=== PATIENT | female | born 1970 | race American Indian/Alaskan Native ===

== ENCOUNTER 2017-02-10 06:20 | Emergency (ER) | payer OTHER ==
[~2017-02-10] VITALS: Ht 160 cm; Wt 68.0 kg
[~2017-02-10 06:20] MED LIST: ACYCLOVIR200 MG PO; BACTRIM DS TAB1 EACH PO; CEPHALEXIN250 MG/5 M PO; CEPHALEXIN500 MG PO; CLOBETASOL PROP59 M1 TOP; DILAUDID2 MG PO; DILAUDID4 MG PO; DIPHENHYDR12.5 MG/1 PO; GUAIFENESIN-CO118 ML PO; HUMIRA40 MG/0.1 INJ; HYDROCODON-ACE1 EA10 PO; HYDROCODON-ACE1 EAC8 PO; IBUPROFEN800 MG PO; JUNEL FE PO; JUNEL1 EAC1 PO; KEFLEX500 MG PO; KETOROLAC TROME10 MG PO; LEVAQUIN250 MG PO; LUPRON DEPOT7.5 MG IM; MELOXICAM15 MG PO; MS CONTIN15 MG PO; NORCO 10-325 T1 EACH PO; NORETHINDRONE0.35 MG PO; ONDANSETRON ODT4 MG PO; PERCOCET 5-3251 EACH PO; POTASSIUM CHLO10 MEQ PO; POTASSIUM CHLO20 ME1 PO; PREDNISONE1 MG PO; PREDNISONE20 MG PO; PRILOSEC20 MG PO; PRILOSEC40 MG PO; PROVENTIL HFA6.7 GM INH; STELARA45 MG/0.1 SQ; STELARA45 MG/0.1 SUB-Q; TORADOL10 MG PO; ZITHROMAX250 MG PO; ZOFRAN ODT4 MG SL
[2017-02-10] MEDS ORDERED: IBUPROFEN200 MG PO (06:31)
[2017-02-10] MEDS ORDERED: CEPHALEXIN500 MG PO (06:48)
[2017-02-10] MEDS ORDERED: NORCO 5-325 TA1 EACH PO (06:48)
== END 2017-02-10 06:56 | disposition home or self-care (01) ==
LOC: ED 06:20
DX: J02.9 Acute pharyngitis, unspecified (principal); G43.909 Migraine, unspecified, not intractable, without status migrainosus; Z98.890 Other specified postprocedural states; Z88.0 Allergy status to penicillin; Z88.1 Allergy status to other antibiotic agents; Z88.5 Allergy status to narcotic agent; Z88.8 Allergy status to other drugs, medicaments and biological substances; Z79.899 Other long term (current) drug therapy
CPT/HCPCS: 87081; 87880; 99283

== ENCOUNTER 2017-07-09 07:08 | Emergency (ER) | payer OTHER ==
[~2017-07-09] VITALS: Ht 160 cm; Wt 68.3 kg
--- OUTSIDE RECORDS SUMMARY | ~2017-07-09 | XMS | Clinical Summary ---
Demographics + + + | Address | [address] | | | [place] [address] | + + + | Home Phone | | + + + | Preferred Language | Unknown | + + + | Marital Status | | + + + | Restorationism Affiliation | PRO | + + + [...] + + + + + | INOCENTE DANILELE | ECON | [address] | | | R | | [place] | | | | | [address] | | + + + + + Care Team Providers + +------+ + | Care Specialist Field Engineer Name | Role | Phone | + +------+ + | Omari Shabazz | PP | | + +------+ + Source Comments JOSE is fully live on both EpicCare Ambulatory and EpicCare InPatient.[facility] Allergies + + + + [...] + + | 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
--- OUTSIDE RECORDS SUMMARY | ~2017-07-09 | XMS | Clinical Summary ---
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
[~2017-07-09 07:08] MED LIST changes: +IBUPROFEN200 MG PO; +NORCO 5-325 TA1 EACH PO
== END 2017-07-09 08:52 | disposition home or self-care (01) ==
LOC: ED 07:08
DX: M62.82 Rhabdomyolysis (principal); G43.909 Migraine, unspecified, not intractable, without status migrainosus; Z88.0 Allergy status to penicillin; Z88.1 Allergy status to other antibiotic agents; Z88.8 Allergy status to other drugs, medicaments and biological substances; Z88.5 Allergy status to narcotic agent; Z79.899 Other long term (current) drug therapy
CPT/HCPCS: 80048; 82550; 85025; 99283; J7030

== ENCOUNTER 2018-01-17 15:26 | Emergency (ER) | payer OTHER ==
[~2018-01-17] VITALS: Ht 160 cm; Wt 75.1 kg
--- OUTSIDE RECORDS SUMMARY | ~2018-01-17 | XMS | Encounter Summary ---
Demographics + + + | Address | [address] | | | [place] [address] | + + + | Home Phone | | + + + | Preferred Language | Unknown | + + + | Marital Status | | + + + | Restoration Affiliation | Unknown | + + + | Race | Unknown | + + + | Ethnic Group | Unknown | + + + Author + + + | Author | [facility] | + + + | Organization | [facility] | + + + | Address | Unknown | + + + | Phone | Unavailable | + + + Support + + +---------+ + | Name | Relationship | Address | Phone | + + +---------+ + | Contact,No | ECON | Unknown | | + + +---------+ + Care Team Providers + +------+ + | Care Distance Learning Unit Leader Name | Role | Phone | + [...] Dr [address], | | | | | [place] | [place] [address] | | | | | [address] | [phone] | | | | | [phone] | | | +--------+ + + + [...]
--- OUTSIDE RECORDS SUMMARY | ~2018-01-17 | XMS | Encounter Summary ---
Demographics + + + | Address | [address] [address] | | | [place] [address] | + + + | Home Phone | | + + + | Preferred Language | Unknown | + + + | Marital Status | | + + + | Orthodox Affiliation | Unknown | + + + | Race | Unknown | + + + | Ethnic Group | Unknown | + + + Author + + + | Author | [facility] | + + + | Organization | [facility] | + + + | Address | Unknown | + + + | Phone | Unavailable | + + + Support + + +---------+ + | Name | Relationship | Address | Phone | + + +---------+ + | Contact,No | ECON | Unknown | | + + +---------+ + Care Team Providers + +------+ + | Care Tick Inspector Name | Role | Phone | + [...] | valve | | | | | [address] | | | | | | [place] | | | | | | [address] | | | | | | (Fax) [...] Maris Chi Date of : 1970 | [facility] | | Performing Physician: Mariah Castano | [...] | maxP.76 mmHg TR Vmax: 2.22 m/s Water Meter Installer: HÉCTOR | | | Authenticated by: Mariah Martinezcrab orchard Report Date/Time: 11-19-2017 | | | 19:17:47 | | + + + + -----+ | Procedure Note | + -----+ | Jonathan, Rad Results In - 11/19/2017 7:18 PM PDT Patient Name: Ashley Chi of | | : 1970Accession: [id number] Physician: Mariah | | [place] INDICATIONS------ | [...] cmLVIDd: 4.38 cmLVPWd: 0.78 cmLVOT Area: 3.54 qz5LDKI Diam: | | 2.12 cm%FS: 30.20 %EF(Teich): [...] (A-L): 22.98 ml/m2LAAs | | A2C: 17.04 ai7KHBUM A-L A2C: 53.44 mlLALs A2C: 4.61 cmLAAs A4C: 9.94 pt8RTNAK | | A-L A4C: 21.18 mlLALs A4C: 3.96 cmRAAs: 13.03 sm2CLRFE A-L: 31.45 mlRAESV MOD: | | 30.49 mlRALs: 4.58 cmAo Diam: 3.13 cmLA Diam: 2.92 cmLA/Ao: 0.93 TAPSE: 3.25 | | cmAV maxP.89 mmHgAV meanP.27 mmHgAV Vmax: 1.72 m/Kiana Vmean: 1.15 m/Kiana | | VTI: 37.64 cmAVA Vmax: 1.95 cm2AVA (VTI): 2.04 sd9DKBJ Vmax: 0.00 cm2/m2AVAI | | (VTI): 0.00 cm2/m2LVOT maxP.63 mmHgLVOT meanP.10 mmHgLVSI Dopp: 48.75 | | ml/m2LVSV Dopp: 77.02 mlLVOT Vmax: 0.95 m/sLVOT Vmean: 0.69 m/sLVOT VTI: 21.73 | | cmMV A Yordy: 1.05 m/sMV DecT: 242.45 msMV E Yordy: 1.27 m/sMV E/A Ratio: 1.21 MV | | PHT: 70.31 msMVA By PHT: 3.12 po8Sdoksi e': 0.07 m/sSeptal E/e': 17.12 Lateral | | e': 0.12 m/sLateral E/e': 10.22 PV maxP.29 mmHgPV Vmax: 0.90 m/sRAP: 5 | | mmHgRVSP: 24.76 mmHgTR maxP.76 mmHgTR Vmax: 2.22 m/sSonographer: | | RKAuthenticated by: Mariah Matrinezmercy health st. vincent medical centerReport Date/Time: 11-19-2017 19:17:47IMPRESSION:1. The | [...] m/s | |AV VTI: 37.64 cm | |NYAELI Vmax: 1.95 cm2 | |NAYELI (VTI): 2.04 [...] |TR Vmax: 2.22 m/s | | | |Water Meter Installer: HÉCTOR | |Authenticated by: Mariah Castano | [...] | + + + + + | [facility] | [address] | [place] [address] | | + + + + + in this encounter Visit Diagnoses + + | Diagnosis | + + | Bicuspid aortic valve | + + | Congenital insufficiency of aortic valve | + +"
--- OUTSIDE RECORDS SUMMARY | ~2018-01-17 | XMS | Encounter Summary ---
Demographics + + + | Address | [address] | | | [place] [address] | + + + | Home Phone | | + + + | Preferred Language | Unknown | + + + | Marital Status | | + + + | Yarsanism Affiliation | Unknown | + + + | Race | Unknown | + + + | Ethnic Group | Unknown | + + + Author + + + | Author | [facility] | + + + | Organization | [facility] | + + + | Address | Unknown | + + + | Phone | Unavailable | + + + Support + + +---------+ + | Name | Relationship | Address | Phone | + + +---------+ + | Contact,No | ECON | Unknown | | + + +---------+ + Care Team Providers + +------+ + | Care Research Associate Molecular Biology Name | Role | Phone | + [...] | valve | | | | | [address] | | | | | | [place] | | | | | | [address] | | | | | | (Fax) [...] Maris Chi Date of : 1970 | [facility] | | Performing Physician: Mariah Castano [...] | maxP.76 mmHg TR Vmax: 2.22 m/s Machinist Bench: HÉCTOR | | | Authenticated by: Mariah Castano Report Date/Time: 11-19-2017 | | | 19:17:47 | | + + + + -----+ | Procedure Note | + -----+ | Mehul Castillo In - 11/19/2017 7:18 PM PDT Patient Name: Ashley Chi of | | : 1970Accession: [id number] Physician: Mariah | | [place] INDICATIONS------ | [...] cmLVIDd: 4.38 cmLVPWd: 0.78 cmLVOT Area: 3.54 es7CETR Diam: | | 2.12 cm%FS: 30.20 %EF(Teich): [...] (A-L): 22.98 ml/m2LAAs | | A2C: 17.04 mk8PRNIB A-L A2C: 53.44 mlLALs A2C: 4.61 cmLAAs A4C: 9.94 cr1WGLUT | | A-L A4C: 21.18 mlLALs A4C: 3.96 cmRAAs: 13.03 pr7BTCVF A-L: 31.45 mlRAESV MOD: | | 30.49 mlRALs: 4.58 cmAo Diam: 3.13 cmLA Diam: 2.92 cmLA/Ao: 0.93 TAPSE: 3.25 | | cmAV maxP.89 mmHgAV meanP.27 mmHgAV Vmax: 1.72 m/Kiana Vmean: 1.15 m/Kiana | | VTI: 37.64 cmAVA Vmax: 1.95 cm2AVA (VTI): 2.04 ly1JBID Vmax: 0.00 cm2/m2AVAI | | (VTI): 0.00 cm2/m2LVOT maxP.63 mmHgLVOT meanP.10 mmHgLVSI Dopp: 48.75 | | ml/m2LVSV Dopp: 77.02 mlLVOT Vmax: 0.95 m/sLVOT Vmean: 0.69 m/sLVOT VTI: 21.73 | | cmMV A Yordy: 1.05 m/sMV DecT: 242.45 msMV E Yordy: 1.27 m/sMV E/A Ratio: 1.21 MV | | PHT: 70.31 msMVA By PHT: 3.12 st0Lxjvfj e': 0.07 m/sSeptal E/e': 17.12 Lateral | | e': 0.12 m/sLateral E/e': 10.22 PV maxP.29 mmHgPV Vmax: 0.90 m/sRAP: 5 | | mmHgRVSP: 24.76 mmHgTR maxP.76 mmHgTR Vmax: 2.22 m/sSonographer: | | RKAuthenticated by: Mihirbety [facility] CampusReport Date/Time: 11-19-2017 19:17:47IMPRESSION:1. The | | left [...] |TR Vmax: 2.22 m/s | | | |Machinist Bench: HÉCTOR | |Authenticated by: Mariah Castano | [...] [facility] | [address] | [place] [address] | | + + + + + in this encounter Visit Diagnoses + + | Diagnosis | + + | Bicuspid aortic valve | + + | Congenital insufficiency of aortic valve | + +"
[2018-01-17] MEDS ORDERED: ONDANSETRON ODT8 MG PO (17:23)
--- OUTSIDE RECORDS SUMMARY | 2018-01-17 17:25 | XMS | Encounter Summary ---
Demographics + + + | Address | [address] | | | [place] [address] | + + + | Home Phone | | + + + | Preferred Language | Unknown | + + + | Marital Status | | + + + | Jainism Affiliation | Unknown | + + + | Race | Unknown | + + + | Ethnic Group | Unknown | + + + Author + + + | Author | [facility] | + + + | Organization | [facility] | + + + | Address | Unknown | + + + | Phone | Unavailable | + + + Support + + +---------+ + | Name | Relationship | Address | Phone | + + +---------+ + | Contact,No | ECON | Unknown | | + + +---------+ + Care Team Providers + +------+ + | Care Bender Machine Operator Name | Role | Phone | + +------+ + | Omari Shabazz | PCP | + | + +------+ + Encounter Details +--------+ + + + + | Date | Type | Department | Care Team | Description | +--------+ + + + + | 11/19/ | Ancillary | [facility] | Daily, | Bicuspid aortic | | 2017 | Orders | ECHO | NIALL Aldana | valve | | | | | [address] | | | | | | [place] | | | | | | [address] | | | | | | (Fax) | | +--------+ + + + + Social History + +-------+ +--------+------+ | Tobacco Use | Types | Packs/Day | Years | Date | | | | | Used | | + +-------+ +--------+------+ | Never Assessed | | | | | + +-------+ +--------+------+ + + + | Sex Assigned at | Date Recorded | | | | + + + | Not on file | | + + + as of this encounter Plan of Treatment Not on fileas of this encounter Results ECHO outside interpretation standard (11/19/2017 5:24 PM) + + + | Impressions | Performed At | + + + | 1. The left ventricle is normal in size, wall thickness and normal | [facility] | | systolic function EF 65-70%. 2. The right ventricle is normal in size | RADIOLOGY | | and function. 3. The aortic valve is bicuspid with no stenosis or | | | regurgitation. 4. There is no pericardial effusion. | | + + + + + + | Narrative | Performed At | + + + | Patient Name: Maris Chi Date of : 1970 | [facility] | | Performing Physician: Mariah Castano | RADIOLOGY | | | | | INDICATIONS bicuspid aortic valve CONCLUSIONS | | | 1. The left ventricle is normal in size, wall thickness | | | and normal systolic function EF 65-70%. 2. The right ventricle is | | | normal in size and function. 3. The aortic valve is bicuspid with no | | | stenosis or regurgitation. 4. There is no pericardial effusion. | | | FINDINGS -------- ECG rhythm: Sinus rhythm. Study: A 2-dimensional | | | transthoracic echocardiogram with m-mode, spectral and color flow | | | Doppler was perfomed. Study: This was a technically adequate study. | | | Left Ventricle: Overall left ventricular systolic function is normal | | | with, an EF between 65 - 70 %. Left Ventricle: The left ventricle | | | cavity size is normal. Left Ventricle: Left ventricular wall | | | thickness is normal. Left Ventricle: The diastolic filling pattern | | | is normal for the age of the patient. Right Ventricle: The right | | | ventricle is normal in size and function. Left Atrium: The left | | | atrium is normal in size. Right Atrium: The right atrium is normal in | | | size. Aortic Valve: The aortic valve is bicuspid. Aortic Valve: | | | There is no evidence of aortic regurgitation. Aortic Valve: There is | | | no evidence of aortic stenosis. Mitral Valve: Normal appearing | | | mitral valve. Mitral Valve: There is trace mitral regurgitation. | | | Tricuspid Valve: The tricuspid valve appears structurally normal. | | | Tricuspid Valve: Trace tricuspid regurgitation present. Tricuspid | | | Valve: There is no evidence of pulmonary hypertension. Tricuspid | | | Valve: The right ventricular systolic pressure (pulmonary artery | | | systolic pressure), as measured by Doppler, is 24.76mmHg. Pulmonic | | | Valve: The pulmonic valve was not well visualized. Pericardium: There | | | is no pericardial effusion. Pericardium: No pleural effusion seen. | | | IVC/Hepatic Veins: The IVC is normal size (1.5-2.5cm) and collapses | | | >50% with sniff, consistent with central venous pressures of 5-10mmHg. | | | Mass: No mass visualized Thrombus: No clot visualized Septum: No | | | ASD observed. MEASUREMENTS Ao asc: 2.92 cm | | | IVC: 1.58 cm EDV(Teich): 87.07 ml IVSd: 0.62 cm | | | LVIDd: 4.38 cm LVPWd: 0.78 cm LVOT Area: 3.54 cm2 LVOT | | | Diam: 2.12 cm %FS: 30.20 % EF(Teich): 57.75 % | | | ESV(Teich): 36.78 ml LVIDs: 3.06 cm SV(Teich): 50.28 ml | | | RVIDd: 2.32 cm LVEF MOD A2C: 69.60 % SV MOD A2C: 84.37 | | | ml LVEF MOD A4C: 73.79 % SV MOD A4C: 77.57 ml EF | | | Biplane: 71.07 % LVEDV MOD BP: 114.23 ml LVESV MOD BP: | | | 33.04 ml LVEDV MOD A2C: 121.23 ml LVLd A2C: 8.19 cm LVEDV | | | MOD A4C: 105.12 ml LVLd A4C: 8.41 cm LVESV MOD A2C: | | | 36.85 ml LVLs A2C: 6.48 cm LVESV MOD A4C: 27.54 ml LVLs | | | A4C: 5.84 cm LAESV(A-L): 36.31 ml LAESV Index (A-L): | | | 22.98 ml/m2 LAAs A2C: 17.04 cm2 LAESV A-L A2C: 53.44 ml | | | LALs A2C: 4.61 cm LAAs A4C: 9.94 cm2 LAESV A-L A4C: | | | 21.18 ml LALs A4C: 3.96 cm RAAs: 13.03 cm2 RAESV A-L: | | | 31.45 ml RAESV MOD: 30.49 ml RALs: 4.58 cm Ao Diam: | | | 3.13 cm LA Diam: 2.92 cm LA/Ao: 0.93 TAPSE: 3.25 cm | | | AV maxP.89 mmHg AV meanP.27 mmHg AV Vmax: 1.72 | | | m/s AV Vmean: 1.15 m/s AV VTI: 37.64 cm NAYELI Vmax: 1.95 | | | cm2 NAYELI (VTI): 2.04 cm2 AVAI Vmax: 0.00 cm2/m2 AVAI | | | (VTI): 0.00 cm2/m2 LVOT maxP.63 mmHg LVOT meanPG: | | | 2.10 mmHg LVSI Dopp: 48.75 ml/m2 LVSV Dopp: 77.02 ml LVOT | | | Vmax: 0.95 m/s LVOT Vmean: 0.69 m/s LVOT VTI: 21.73 cm | | | MV A Yordy: 1.05 m/s MV DecT: 242.45 ms MV E Yordy: 1.27 m/s | | | MV E/A Ratio: 1.21 MV PHT: 70.31 ms MVA By PHT: 3.12 | | | cm2 Septal e': 0.07 m/s Septal E/e': 17.12 Lateral e': | | | 0.12 m/s Lateral E/e': 10.22 PV maxP.29 mmHg PV | | | Vmax: 0.90 m/s RAP: 5 mmHg RVSP: 24.76 mmHg TR | | | maxP.76 mmHg TR Vmax: 2.22 m/s Zoology Teacher: HÉCTOR | | | Authenticated by: Mariah Martinezfranklin Report Date/Time: 11-19-2017 | | | 19:17:47 | | + + + + -----+ | Procedure Note | + -----+ | Jonathan, Rad Results In - 11/19/2017 7:18 PM PDT Patient Name: Ashley Chi of | | : 1970Accession: [id number] Physician: Mariah | | Alsam[place] INDICATIONS------ | | -----bicuspid aortic valveCONCLUSIONS 1. The left ventricle is normal in size, | | wall thickness and normal systolic function EF 65-70%.2. The right ventricle is normal | | in size and function.3. The aortic valve is bicuspid with no stenosis or regurgitation. | | 4. There is no pericardial effusion.FINDINGS--------ECG rhythm: Sinus rhythm.Study: A | | 2-dimensional transthoracic echocardiogram with m-mode, spectral and color flow Doppler | | was perfomed. Study: This was a technically adequate study.Left Ventricle: Overall left | | ventricular systolic function is normal with, an EF between 65 - 70 %. Left Ventricle: | | The left ventricle cavity size is normal. Left Ventricle: Left ventricular wall | | thickness is normal. Left Ventricle: The diastolic filling pattern is normal for the age | | of the patient.Right Ventricle: The right ventricle is normal in size and function.Left | | Atrium: The left atrium is normal in size.Right Atrium: The right atrium is normal in | | size. Aortic Valve: The aortic valve is bicuspid. Aortic Valve: There is no evidence of | | aortic regurgitation. Aortic Valve: There is no evidence of aortic stenosis.Mitral | | Valve: Normal appearing mitral valve. Mitral Valve: There is trace mitral | | regurgitation.Tricuspid Valve: The tricuspid valve appears structurally normal. | | Tricuspid Valve: Trace tricuspid regurgitation present. Tricuspid Valve: There is no | | evidence of pulmonary hypertension. Tricuspid Valve: The right ventricular systolic | | pressure (pulmonary artery systolic pressure), as measured by Doppler, is | | 24.76mmHg.Pulmonic Valve: The pulmonic valve was not well visualized.Pericardium: There | | is no pericardial effusion. Pericardium: No pleural effusion seen.IVC/Hepatic Veins: The | | IVC is normal size (1.5-2.5cm) and collapses >50% with sniff, consistent with central | | venous pressures of 5-10mmHg.Mass: No mass visualizedThrombus: No clot visualizedSeptum: | | No ASD observed.MEASUREMENTS Ao asc: 2.92 cmIVC: 1.58 cmEDV(Teich): | | 87.07 mlIVSd: 0.62 cmLVIDd: 4.38 cmLVPWd: 0.78 cmLVOT Area: 3.54 [id number] Diam: | | 2.12 cm%FS: 30.20 %EF(Teich): 57.75 %ESV(Teich): 36.78 mlLVIDs: 3.06 | | cmSV(Teich): 50.28 mlRVIDd: 2.32 cmLVEF MOD A2C: 69.60 %SV MOD A2C: 84.37 mlLVEF | | MOD A4C: 73.79 %SV MOD A4C: 77.57 mlEF Biplane: 71.07 %LVEDV MOD BP: 114.23 | | mlLVESV MOD BP: 33.04 mlLVEDV MOD A2C: 121.23 mlLVLd A2C: 8.19 cmLVEDV MOD A4C: | | 105.12 mlLVLd A4C: 8.41 cmLVESV MOD A2C: 36.85 mlLVLs A2C: 6.48 cmLVESV MOD A4C: | | 27.54 mlLVLs A4C: 5.84 cmLAESV(A-L): 36.31 mlLAESV Index (A-L): 22.98 ml/m2LAAs | | A2C: 17.04 [id number] A-L A2C: 53.44 mlLALs A2C: 4.61 cmLAAs A4C: 9.94 [id number] | | A-L A4C: 21.18 mlLALs A4C: 3.96 cmRAAs: 13.03 [id number] A-L: 31.45 mlRAESV MOD: | | 30.49 mlRALs: 4.58 cmAo Diam: 3.13 cmLA Diam: 2.92 cmLA/Ao: 0.93 TAPSE: 3.25 | | cmAV maxP.89 mmHgAV meanP.27 mmHgAV Vmax: 1.72 m/Kiana Vmean: 1.15 m/Kiana | | VTI: 37.64 cmAVA Vmax: 1.95 cm2AVA (VTI): 2.04 [id number] Vmax: 0.00 cm2/m2AVAI | | (VTI): 0.00 cm2/m2LVOT maxP.63 mmHgLVOT meanP.10 mmHgLVSI Dopp: 48.75 | | ml/m2LVSV Dopp: 77.02 mlLVOT Vmax: 0.95 m/sLVOT Vmean: 0.69 m/sLVOT VTI: 21.73 | | cmMV A Yordy: 1.05 m/sMV DecT: 242.45 msMV E Yordy: 1.27 m/sMV E/A Ratio: 1.21 MV | | PHT: 70.31 msMVA By PHT: 3.12 [id number] e': 0.07 m/sSeptal E/e': 17.12 Lateral | | e': 0.12 m/sLateral E/e': 10.22 PV maxP.29 mmHgPV Vmax: 0.90 m/sRAP: 5 | | mmHgRVSP: 24.76 mmHgTR maxP.76 mmHgTR Vmax: 2.22 m/sSonographer: | | RKAuthenticated by: Mariah Martinezohio state university wexner medical centerReport Date/Time: 11-19-2017 19:17:47IMPRESSION:1. The | | left ventricle is normal in size, wall thickness and normal systolic function EF | | 65-70%.2. The right ventricle is normal in size and function.3. The aortic valve is | | bicuspid with no stenosis or regurgitation. 4. There is no pericardial effusion. | |MEASUREMENTS | | | |Ao asc: 2.92 cm | |IVC: 1.58 cm | |EDV(Teich): 87.07 ml | |IVSd: 0.62 cm | |LVIDd: 4.38 cm | |LVPWd: 0.78 cm | |LVOT Area: 3.54 cm2 | |LVOT Diam: 2.12 cm | |%FS: 30.20 % | |EF(Teich): 57.75 % | |ESV(Teich): 36.78 ml | |LVIDs: 3.06 cm | |SV(Teich): 50.28 ml | |RVIDd: 2.32 cm | |LVEF MOD A2C: 69.60 % | |SV MOD A2C: 84.37 ml | |LVEF MOD A4C: 73.79 % | |SV MOD A4C: 77.57 ml | |EF Biplane: 71.07 % | |LVEDV MOD BP: 114.23 ml | |LVESV MOD BP: 33.04 ml | |LVEDV MOD A2C: 121.23 ml | |LVLd A2C: 8.19 cm | |LVEDV MOD A4C: 105.12 ml | |LVLd A4C: 8.41 cm | |LVESV MOD A2C: 36.85 ml | |LVLs A2C: 6.48 cm | |LVESV MOD A4C: 27.54 ml | |LVLs A4C: 5.84 cm | |LAESV(A-L): 36.31 ml | |LAESV Index (A-L): 22.98 ml/m2 | |LAAs A2C: 17.04 cm2 | |LAESV A-L A2C: 53.44 ml | |LALs A2C: 4.61 cm | |LAAs A4C: 9.94 cm2 | |LAESV A-L A4C: 21.18 ml | |LALs A4C: 3.96 cm | |RAAs: 13.03 cm2 | |RAESV A-L: 31.45 ml | |RAESV MOD: 30.49 ml | |RALs: 4.58 cm | |Ao Diam: 3.13 cm | |LA Diam: 2.92 cm | |LA/Ao: 0.93 | |TAPSE: 3.25 cm | |AV maxP.89 mmHg | |AV meanP.27 mmHg | |AV Vmax: 1.72 m/s | |AV Vmean: 1.15 m/s | |AV VTI: 37.64 cm | |NAYELI Vmax: 1.95 cm2 | |NAYELI (VTI): 2.04 cm2 | |AVAI Vmax: 0.00 cm2/m2 | |AVAI (VTI): 0.00 cm2/m2 | |LVOT maxP.63 mmHg | |LVOT meanP.10 mmHg | |LVSI Dopp: 48.75 ml/m2 | |LVSV Dopp: 77.02 ml | |LVOT Vmax: 0.95 m/s | |LVOT Vmean: 0.69 m/s | |LVOT VTI: 21.73 cm | |MV A Yordy: 1.05 m/s | |MV DecT: 242.45 ms | |MV E Yordy: 1.27 m/s | |MV E/A Ratio: 1.21 | |MV PHT: 70.31 ms | |MVA By PHT: 3.12 cm2 | |Septal e': 0.07 m/s | |Septal E/e': 17.12 | |Lateral e': 0.12 m/s | |Lateral E/e': 10.22 | |PV maxP.29 mmHg | |PV Vmax: 0.90 m/s | |RAP: 5 mmHg | |RVSP: 24.76 mmHg | |TR maxP.76 mmHg | |TR Vmax: 2.22 m/s | | | |Zoology Teacher: HÉCTOR | |Authenticated by: Mariah Castano | |Report Date/Time: 11-19-2017 19:17:47 | | | |IMPRESSION: | |1. The left ventricle is normal in size, wall thickness and normal systolic function EF 65- 70%. | |2. The right ventricle is normal in size and function. | |3. The aortic valve is bicuspid with no stenosis or regurgitation. | |4. There is no pericardial effusion. | + -----+ + + + + + | Performing | Address | City/State/Zipcode | Phone Number | | Organization | | | | + + + + + | [facility] | [address] | [place] [address] | | + + + + + in this encounter Visit Diagnoses + + | Diagnosis | + + | Bicuspid aortic valve | + + | Congenital insufficiency of aortic valve | + +"
--- OUTSIDE RECORDS SUMMARY | 2018-01-17 17:25 | XMS | Clinical Summary ---
Demographics + + + | Address | [address] | | | [place] [address] | + + + | Home Phone | | + + + | Preferred Language | Unknown | + + + | Marital Status | | + + + | Shinto Affiliation | PRO | + + + | Race | or | + + + | Ethnic Group | Not or | + + + Author + + + | Author | NON REVENUE LOCATIONS | + + + | Organization | NON REVENUE LOCATIONS | + + + | Address | Unknown | + + + | Phone | Unavailable | + + + Support + + + + + | Name | Relationship | Address | Phone | + + + + + | INOCENTE DANIELLE | ECON | [address] | | | R | | [place] | | | | | [address] | | + + + + + Care Team Providers + +------+ + | Care Glaze Maker Name | Role | Phone | + +------+ + | Omari Shabazz | PP | | + +------+ + Source Comments JOSE is fully live on both EpicCare Ambulatory and EpicCare InPatient.[facility] Allergies + + + + + + | Active Allergy | Reactions | Severity | Noted | Comments | | | | | Date | | + + + + + + | Prochlorperazine | Nausea and Vomiting | | 02/05/20 | | | Maleate | | | 13 | | + + + + + + | Erythromycin | Hives | | 02/05/20 | | | | | | 13 | | + + + + + + | Penicillin G | Hives | | 02/05/20 | | | | | | 13 | | + + + + + + | Oxycodone-Acetaminop | Tachycardia | | 02/05/20 | | | hen | | | 13 | | + + + + + + | Promethazine Hcl | Myalgia | | 02/05/20 | Muscle spasms | | | | | 13 | | + + + + + + Current Medications + + +--------+---------+------+------+-------+ | Prescription | Sig. | Disp. | Refills | Star | End | Statu | | | | | | t | Date | s | | | | | | Date | | | + + +--------+---------+------+------+-------+ | morphine ER (MS | Take 15 mg by mouth | | | | | Activ | | CONTIN) 15 mg Oral | every twelve hours. | | | | | e | | tablet extended | | | | | | | | release | | | | | | | + + +--------+---------+------+------+-------+ | HYDROmorphone | Take 2 mg by mouth | | | | | Activ | | (DILAUDID) 2 mg Oral | twice daily as | | | | | e | | tablet | needed. | | | | | | + + +--------+---------+------+------+-------+ | omeprazole | Take 20 mg by mouth | | | | | Activ | | (PRILOSEC) 20 mg | two times daily. | | | | | e | | Oral capsule,delayed | | | | | | | | release(DR/EC) | | | | | | | + + +--------+---------+------+------+-------+ | NORETHINDRONE A-E | Take by mouth once | | | | | Activ | | ESTRADIOL (JUNEL | daily. | | | | | e | | 1.5/30, 21, ORAL) | | | | | | | + + +--------+---------+------+------+-------+ | ondansetron | Take 4 mg by mouth | | | | | Activ | | (ZOFRAN) 4 mg Oral | every twelve hours | | | | | e | | tablet | as needed. | | | | | | + + +--------+---------+------+------+-------+ | methotrexate 2.5 | Take 6 tablets by | 24 | 1 | 10/2 | | Activ | | mg Oral tablet | mouth every seven | tablet | | 420 | | e | | | days. | | | 13 | | | + + +--------+---------+------+------+-------+ | folic acid 1 mg | Take 1 tablet by | 90 | 3 | 10/2 | | Activ | | Oral tablet | mouth once daily. 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 | + + + | Psoriatic arthritis ([facility]) | 02/04/2013 | + + + | Chronic pain disorder | 02/04/2013 | + + + | Psoriasis | 02/04/2013 | + + + Social History + +-------+ +--------+------+ | Tobacco Use | Types | Packs/Day | Years | Date | | | | | Used | | + +-------+ +--------+------+ | Never Smoker | | | | | + +-------+ +--------+------+ + + + | Sex Assigned at | Date Recorded | | | | + + + | Not on file | | + + + Last Filed Vital Signs + + + + | Vital Sign | Reading | Time Taken | + + + + | Blood Pressure | 102/68 | 02/04/2013 2:12 PM PDT | + + + + | Pulse | 74 | 02/04/2013 2:12 PM PDT | + + + + | Temperature | - | - | + + + + | Respiratory Rate | - | - | + + + + | Oxygen Saturation | - | - | + + + + | Inhaled Oxygen | - | - | | Concentration | | | + + + + | Weight | 69.4 kg (153 lb) | 02/04/2013 2:12 PM PDT | + + + + | Height | 160 cm (5' 3") | 02/04/2013 2:12 PM PDT | + + + + | Body Mass Index | 27.1 | 02/04/2013 2:12 PM PDT | + + + + Plan of Treatment + + + + + | Health Maintenance | Due Date | Last Done | Comments | + + + + + | INFLUENZA VACCINE | | | | | (FLU SHOT) | 8 | | | + + + + + Results Not on filefrom Last 3 Months Insurance + +--------+ +--------+ +---------+ | Payer | Benefi | Subscriber | Type | Phone | Address | | | t Plan | ID | | | | | | / | | | | | | | Group | | | | | + +--------+ +--------+ +---------+ | | TRICAR | xxxxxxxxx | Abi | [phone] | | | E | | ity | [phone] | | | | HEALTH | | | | | | | NET | | | | | + +--------+ +--------+ +---------+ | [employer] | [employer] | [phone] | Agency | | | | SERVICE | | | | | | | | HEALTH | | | | | | | | | | | | | | SERVIC | | | | | | | E | | | | | + +--------+ +--------+ +---------+ + +--------+ +--------+ + + | Guarantor Name | Accoun | Relation to | Date | Phone | Billing Address | | | t Type | Patient | of | | | | | | | | | | + +--------+ +--------+ + + | ENIO SCHMITZ | Person | Self [birth year] | Home: | [address] | | | al/Thee | | 1971 | [phone] | [place] [address] | | | karri | | | [phone] | | + +--------+ +--------+ + +
--- OUTSIDE RECORDS SUMMARY | 2018-01-17 17:25 | XMS | Encounter Summary ---
Demographics + + + | Address | [address] | | | [place] [address] | + + + | Home Phone | | + + + | Preferred Language | Unknown | + + + | Marital Status | | + + + | Judaism Affiliation | Unknown | + + + | Race | Unknown | + + + | Ethnic Group | Unknown | + + + Author + + + | Author | [facility] | + + + | Organization | [facility] | + + + | Address | Unknown | + + + | Phone | Unavailable | + + + Support + + +---------+ + | Name | Relationship | Address | Phone | + + +---------+ + | Contact,No | ECON | Unknown | | + + +---------+ + Care Team Providers + +------+ + | Care Camp Attendant Name | Role | Phone | + +------+ + | Omari Shabazz | PCP | | + +------+ + Reason for Visit +--------+ + | Reason | Comments | +--------+ + | Other | [facility] | +--------+ + Encounter Details +--------+ + + + + | Date | Type | Department | Care Team | Description | +--------+ + + + + | 01/05/ | Documentati | [facility] | Lanny Wong | Other (Referral - | | 2017 | on Only | Associated | | David Ricci | | | | [facility] | | Dwight Ratliff | | | | [address], | | [place]) | | | | [address] [place], | | | | | | [place] [address] | | | | | | [phone] | | | +--------+ + + + + [...] + + + as of this encounter Progress Notes Lanny Wong - 01/05/2018 9:42 AM PDTRef[facility] Plan of Treatment Not on fileas of this encounter Visit Diagnoses Not on filein this encounter"
--- OUTSIDE RECORDS SUMMARY | 2018-01-17 17:25 | XMS | Encounter Summary ---
Demographics + + + | Address | [address] | | | [place] [address] | + + + | Home Phone | | + + + | Preferred Language | Unknown | + + + | Marital Status | | + + + | Moravian Affiliation | Unknown | + + + | Race | Unknown | + + + | Ethnic Group | Unknown | + + + Author + + + | Author | [facility] | + + + | Organization | [facility] | + + + | Address | Unknown | + + + | Phone | Unavailable | + + + Support + + +---------+ + | Name | Relationship | Address | Phone | + + +---------+ + | Contact,No | ECON | Unknown | | + + +---------+ + Care Team Providers + +------+ + | Care Human Services Manager Name | Role | Phone | + +------+ + | Omari Shabazz | PCP | | + +------+ + Encounter Details +--------+ + + + + | Date | Type | Department | Care Team | Description | +--------+ + + + + | 10/29/ | Documentati | [facility] | Mariah Castano, | | | 2017 | on Only | Kris Dumont | [address] | | | | | [address], | | | | | [place] | [place] [address] | | | | | [address] | [phone] | | | | | [phone] | | | +--------+ + + + [...]
--- OUTSIDE RECORDS SUMMARY | 2018-01-17 17:25 | XMS | Clinical Summary ---
Demographics + + + | Address | [address] | | | [place] [address] | + + + | Home Phone | | + + + | Preferred Language | Unknown | + + + | Marital Status | | + + + | Sabianism Affiliation | Unknown | + + + | Race | Unknown | + + + | Ethnic Group | Unknown | + + + Author + + + | Author | [facility] | + + + | Organization | [facility] | + + + | Address | Unknown | + + + | Phone | Unavailable | + + + Support + + +---------+ + | Name | Relationship | Address | Phone | + + +---------+ + | Contact,No | ECON | Unknown | | + + +---------+ + Care Team Providers + +------+ + | Care Marketing Operations Assistant Name | Role | Phone | + +------+ + | Omari Shabazz | IGLESIA | | + +------+ + Allergies Not on File Current Medications Not on file Active Problems Not on file Encounters +--------+ + + + + | Date | Type | Specialty | Care Team | Description | +--------+ + + + + | 01/05/ | Documentati | | Lanny Wong | Other (Referral - | | 2017 | on Only | | | David Ricci | | | | | | Dwight Ratliff | | | | | Alan TIERNEY) | +--------+ + + + + | 11/19/ | Ancillary | | Daily | Bicuspid aortic | | 2017 | Procedure | | [place]ana | valve | +--------+ + + + + | 11/19/ | Ancillary | | Daily, | Bicuspid aortic | | 2018 | Orders | | [place] Aldana | valve | +--------+ + + + + | 10/29/ | Documentati | | Mariah Castano, | | | 2017 | on Only | | MD | | +--------+ + + + + from Last 3 Months Social History + +-------+ +--------+------+ | Tobacco [...] on file | | + + + Plan of Treatment + + + + + | Health Maintenance | Due Date | Last Done | Comments | + + + + + | Cervical Cancer | | | | | Screening (Pap) | 3 | | | + + + + + | Vaccine: | | 02/24/2007 | | | Dtap/Tdap/Td (2 - | 7 | | | | Td) | | | | + + + + + | Vaccine: Influenza | | 02/24/2007 | | | (#1) | 8 | | | + + + + + Procedures + +--------+ + + + | Procedure Name | Priori | Date/Time | Associated Diagnosis | Comments | | | ty | | | | + +--------+ + + + | ECHO OUTSIDE | Routin | 11/19/2017 | Bicuspid aortic | Results for this | | INTERPRETATION | e | 5:24 PM | valve | procedure are in the | | STANDARD | | PDT | | results section. | + +--------+ + + + from Last 3 Months Results ECHO outside interpretation standard (11/19/2017 5:24 PM) + + + | Impressions | Performed At | + + + | 1. The left ventricle is normal in size, wall thickness and normal | [facility] | | systolic function EF 65-70%. 2. The right ventricle is normal in size | [facility] | | and function. 3. The aortic valve is bicuspid with no stenosis or | | | regurgitation. 4. There is no pericardial effusion. | | + + + + + + | Narrative | Performed At | + + + | Patient Name: Maris Schmitz Date of : 1970 | [facility] | | Performing Physician: Mariah Casatno | RADIOLOGY | | | | | [...] | maxP.76 mmHg TR Vmax: 2.22 m/s Runner Worker: HÉCTOR | | | Authenticated by: Mariah Martinezsomerset Report Date/Time: 11-19-2017 | | | 19:17:47 | | + + + + -----+ | Procedure Note | + -----+ | Jonathan, Rad Results In - 11/19/2017 7:18 PM PDT Patient Name: Ashley Schmitz of | | : 1970Accession: [id number] Physician: Mariah | | [place]sam[place] INDICATIONS------ | [...] cmLVIDd: 4.38 cmLVPWd: 0.78 cmLVOT Area: 3.54 ez0KAWL Diam: | | 2.12 cm%FS: 30.20 %EF(Teich): [...] (A-L): 22.98 ml/m2LAAs | | A2C: 17.04 vc2KIQWK A-L A2C: 53.44 mlLALs A2C: 4.61 cmLAAs A4C: 9.94 ca7JWGRF | | A-L A4C: 21.18 mlLALs A4C: 3.96 cmRAAs: 13.03 gv6JMNIA A-L: 31.45 mlRAESV MOD: | | 30.49 mlRALs: 4.58 cmAo Diam: 3.13 cmLA Diam: 2.92 cmLA/Ao: 0.93 TAPSE: 3.25 | | cmAV maxP.89 mmHgAV meanP.27 mmHgAV Vmax: 1.72 m/Kiana Vmean: 1.15 m/Kiana | | VTI: 37.64 cmAVA Vmax: 1.95 cm2AVA (VTI): 2.04 ti5CQPB Vmax: 0.00 cm2/m2AVAI | | (VTI): 0.00 cm2/m2LVOT maxP.63 mmHgLVOT meanP.10 mmHgLVSI Dopp: 48.75 | | ml/m2LVSV Dopp: 77.02 mlLVOT Vmax: 0.95 m/sLVOT Vmean: 0.69 m/sLVOT VTI: 21.73 | | cmMV A Yordy: 1.05 m/sMV DecT: 242.45 msMV E Yordy: 1.27 m/sMV E/A Ratio: 1.21 MV | | PHT: 70.31 msMVA By PHT: 3.12 cq4Yqzjfc e': 0.07 m/sSeptal E/e': 17.12 Lateral | | e': 0.12 m/sLateral E/e': 10.22 PV maxP.29 mmHgPV Vmax: 0.90 m/sRAP: 5 | | mmHgRVSP: 24.76 mmHgTR maxP.76 mmHgTR Vmax: 2.22 m/sSonographer: | | RKAuthenticated by: Mariah Crystal Date/Time: 11-19-2017 19:17:47IMPRESSION:1. The | | left [...] |TR Vmax: 2.22 m/s | | | |Runner Worker: HÉCTOR | |Authenticated by: Mariah Castano | [...] | + + + + + | [facility] | [address] | [place] [address] | | + + + + + from Last 3 Months Insurance + +--------+ +------+-------+ + | Payer | Benefi | Subscriber | Type | Phone | Address | | | t Plan | ID | | | | | | / | | | | | | | Group | | | | | + +--------+ +------+-------+ + | MEDICAID | MEDICA | [id number] | | | [address] | | | ID | | | | [place] | | | [place] | | | | [phone] | + +--------+ +------+-------+ + + +--------+ +--------+ + + | Guarantor Name | Accoun | Relation to | Date | Phone | Billing Address | | | t Type | Patient | of | | | | | | | | | | + +--------+ +--------+ + + | MARIS SCHMITZ | Person | Self [birth year] Home: | [address] | | | al/Fam | | 1971 | [phone] | [place] | | | [place] | | | [phone] | [phone] | + +--------+ +--------+ + +"
--- OUTSIDE RECORDS SUMMARY | 2018-01-17 17:25 | XMS | Encounter Summary ---
Demographics + + + | Address | [address] | | | [place] [address] | + + + | Home Phone | | + + + | Preferred Language | Unknown | + + + | Marital Status | | + + + | Shinto Affiliation | Unknown | + + + | Race | Unknown | + + + | Ethnic Group | Unknown | + + + Author + + + | Author | [facility] | + + + | Organization | [facility] | + + + | Address | Unknown | + + + | Phone | Unavailable | + + + Support + + +---------+ + | Name | Relationship | Address | Phone | + + +---------+ + | Contact,No | ECON | Unknown | | + + +---------+ + Care Team Providers + +------+ + | Care Airframe And Powerplant Technician Name | Role | Phone | + +------+ + | Omari Shabazz | PCP | | + +------+ + Reason for Visit +--------+ + | Reason | Comments | +--------+ + | Other | [facility] | +--------+ + Encounter Details +--------+ + + + + | Date | Type | Department | Care Team | Description | +--------+ + + + + | 01/05/ | Documentati | [facility] | Lanny Wong | Other (Referral - | | 2017 | on Only | Associated | | David Ricci | | | | [facility] | | Dwight Ratliff | | | | [address], | | [place]) | | | | [address] [place], | | | | | | [place] [address] | | | | | | [phone] | | | +--------+ + + + [...] Wong - 01/05/2018 9:42 AM [facility] in this encounter Plan of Treatment Not on fileas of this encounter Visit Diagnoses Not on filein this encounter"
--- OUTSIDE RECORDS SUMMARY | 2018-01-17 17:25 | XMS | Clinical Summary ---
Demographics + + + | Address | [address] [address] | | | [place] [address] | + + + | Home Phone | | + + + | Preferred Language | Unknown | + + + | Marital Status | | + + + | Hindu Affiliation | PRO | + + + [...] + | INOCENTE DANIELLE | ECON | [address] | | | R | | [place] | | | | | [address] | | + + + + + Care Team Providers + +------+ + | Care Cloth Edge Singer Name | Role | Phone | + +------+ + | Omari Shabazz | PP | | + +------+ + Source Comments JOSE is fully live on both EpicCare Ambulatory and EpicCare InPatient.[facility] Allergies + + + + + [...] + | 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
--- OUTSIDE RECORDS SUMMARY | 2018-01-17 17:25 | XMS | Clinical Summary ---
Demographics + + + | Address | [address] | | | [place] [address] | + + + | Home Phone | | + + + | Preferred Language | Unknown | + + + | Marital Status | | + + + | Orthodoxy Affiliation | Unknown | + + + | Race | Unknown | + + + | Ethnic Group | Unknown | + + + Author + + + | Author | [facility] | + + + | Organization | [facility] | + + + | Address | Unknown | + + + | Phone | Unavailable | + + + Support + + +---------+ + | Name | Relationship | Address | Phone | + + +---------+ + | Contact,No | ECON | Unknown | | + + +---------+ + Care Team Providers + +------+ + | Care Pharmacy Grad Intern Name | Role | Phone | + [...] + | 11/19/ | Ancillary | | aDily, | Bicuspid aortic | | 2018 | [...] Maris Schmitz Date of : 1970 | [facility] | | Performing Physician: Mariah Castano | [...] | maxP.76 mmHg TR Vmax: 2.22 m/s Licensed Chemical Spray Technician: HÉCTOR | | | Authenticated by: Mariah Martinezbushton Report Date/Time: 11-19-2017 | | | 19:17:47 | | + + + + -----+ | Procedure Note | + -----+ | Jonathan, Rad Results In - 11/19/2017 7:18 PM PDT Patient Name: Ashley Schmitz of | | : 1970Accession: [id number] Physician: Mariah | | [place]sam[place] INDICATIONS------ | [...] cmLVIDd: 4.38 cmLVPWd: 0.78 cmLVOT Area: 3.54 ef5ZSGZ Diam: | | 2.12 cm%FS: 30.20 %EF(Teich): [...] (A-L): 22.98 ml/m2LAAs | | A2C: 17.04 st5NNISP A-L A2C: 53.44 mlLALs A2C: 4.61 cmLAAs A4C: 9.94 ls1HILOQ | | A-L A4C: 21.18 mlLALs A4C: 3.96 cmRAAs: 13.03 zr0VNEQL A-L: 31.45 mlRAESV MOD: | | 30.49 mlRALs: 4.58 cmAo Diam: 3.13 cmLA Diam: 2.92 cmLA/Ao: 0.93 TAPSE: 3.25 | | cmAV maxP.89 mmHgAV meanP.27 mmHgAV Vmax: 1.72 m/Kiana Vmean: 1.15 m/Kiana | | VTI: 37.64 cmAVA Vmax: 1.95 cm2AVA (VTI): 2.04 ks6OLWA Vmax: 0.00 cm2/m2AVAI | | (VTI): 0.00 cm2/m2LVOT maxP.63 mmHgLVOT meanP.10 mmHgLVSI Dopp: 48.75 | | ml/m2LVSV Dopp: 77.02 mlLVOT Vmax: 0.95 m/sLVOT Vmean: 0.69 m/sLVOT VTI: 21.73 | | cmMV A Yordy: 1.05 m/sMV DecT: 242.45 msMV E Yordy: 1.27 m/sMV E/A Ratio: 1.21 MV | | PHT: 70.31 msMVA By PHT: 3.12 sz0Hunwsj e': 0.07 m/sSeptal E/e': 17.12 Lateral | [...] |TR Vmax: 2.22 m/s | | | |Licensed Chemical Spray Technician: HÉCTOR | |Authenticated by: Mariah Castano | [...] [facility] | [address] | [place] [address] | | + + + + + [...] +------+-------+ + | MEDICAID | MEDICA | [id number] | | | [address] | | | ID | | | | [place] | | | [place] | | | | [phone] | + +--------+ +------+-------+ + + +--------+ [...] | | al/Fam | | 1971 | [phone] | [place] | | | [place] | | | [phone] | [phone] | + +--------+ +--------+ + +"
--- OUTSIDE RECORDS SUMMARY | 2018-01-17 17:25 | XMS | Encounter Summary ---
Demographics + + + | Address | [address] [address] | | | [place] [address] | + + + | Home Phone | | + + + | Preferred Language | Unknown | + + + | Marital Status | | + + + | Amish Affiliation | Unknown | + + + | Race | Unknown | + + + | Ethnic Group | Unknown | + + + Author + + + | Author | [facility] | + + + | Organization | [facility] | + + + | Address | Unknown | + + + | Phone | Unavailable | + + + Support + + +---------+ + | Name | Relationship | Address | Phone | + + +---------+ + | Contact,No | ECON | Unknown | | + + +---------+ + Care Team Providers + +------+ + | Care Video Operator Name | Role | Phone | + +------+ + | Omari Shabazz | PCP | + | + +------+ + Encounter Details +--------+ + + + + | Date | Type | Department | Care Team | Description | +--------+ + + + + | 11/19/ | Ancillary | [facility] | Daily, | Bicuspid aortic | | 2017 | Procedure | ECHO | [place] | valve | | | | | [address] | | | | | | [place] | | | | | | [address] | | | | | | (Fax) [...] Treatment Not on fileas of this encounter Procedures + +--------+ + + + | [...] section. | + +--------+ + + + in this encounter Results ECHO outside interpretation standard [...] Maris Chi Date of : 1970 | [facility] | | Performing Physician: Mariah [...] | maxP.76 mmHg TR Vmax: 2.22 m/s Screen Printing Loader Unloader: HÉCTOR | | | Authenticated by: Mariah Castano Report Date/Time: 11-19-2017 | | | 19:17:47 | | + + + + -----+ | Procedure Note | + -----+ | Mehul Castillo In - 11/19/2017 7:18 PM PDT Patient Name: Ashley Chi of | | : 1970Accession: [id number] Physician: Mariah | | [place] INDICATIONS------ | | -----bicuspid aortic valveCONCLUSIONS 1. [...] cmLVIDd: 4.38 cmLVPWd: 0.78 cmLVOT Area: 3.54 ch6CWBX Diam: | | 2.12 cm%FS: 30.20 %EF(Teich): [...] (A-L): 22.98 ml/m2LAAs | | A2C: 17.04 lz3RDPUB A-L A2C: 53.44 mlLALs A2C: 4.61 cmLAAs A4C: 9.94 fo6SMOMS | | A-L A4C: 21.18 mlLALs A4C: 3.96 cmRAAs: 13.03 ip6AWQUQ A-L: 31.45 mlRAESV MOD: | | 30.49 mlRALs: 4.58 cmAo Diam: 3.13 cmLA Diam: 2.92 cmLA/Ao: 0.93 TAPSE: 3.25 | | cmAV maxP.89 mmHgAV meanP.27 mmHgAV Vmax: 1.72 m/Kiana Vmean: 1.15 m/Kiana | | VTI: 37.64 cmAVA Vmax: 1.95 cm2AVA (VTI): 2.04 vr7PBLV Vmax: 0.00 cm2/m2AVAI | | (VTI): 0.00 cm2/m2LVOT maxP.63 mmHgLVOT meanP.10 mmHgLVSI Dopp: 48.75 | | ml/m2LVSV Dopp: 77.02 mlLVOT Vmax: 0.95 m/sLVOT Vmean: 0.69 m/sLVOT VTI: 21.73 | | cmMV A Yordy: 1.05 m/sMV DecT: 242.45 msMV E Yordy: 1.27 m/sMV E/A Ratio: 1.21 MV | | PHT: 70.31 msMVA By PHT: 3.12 wg0Txabjc e': 0.07 m/sSeptal E/e': 17.12 Lateral | | e': 0.12 m/sLateral E/e': 10.22 PV maxP.29 mmHgPV Vmax: 0.90 m/sRAP: 5 | | mmHgRVSP: 24.76 mmHgTR maxP.76 mmHgTR Vmax: 2.22 m/sSonographer: | | RKAuthenticated by: Mihirbety [facility] CenterReport Date/Time: 11-19-2017 19:17:47IMPRESSION:1. The | | left [...] |TR Vmax: 2.22 m/s | | | |Screen Printing Loader Unloader: HÉCTOR | |Authenticated by: Mariah Castano | [...] | + + + + + | [facility] | [address] | [place] [address] | | + + + + + in this encounter Visit Diagnoses + + | Diagnosis | + + | Bicuspid aortic valve | + + | Congenital insufficiency of aortic valve | + +"
== END 2018-01-17 17:34 | disposition home or self-care (01) ==
LOC: ED 15:26
DX: M62.82 Rhabdomyolysis (principal); E86.0 Dehydration; Z88.0 Allergy status to penicillin; Z88.1 Allergy status to other antibiotic agents; Z88.5 Allergy status to narcotic agent; Z79.899 Other long term (current) drug therapy; Z88.8 Allergy status to other drugs, medicaments and biological substances
CPT/HCPCS: 80053; 81001; 82550; 85025; 96361; 96374; 99283; J2405; J7030

== ENCOUNTER 2018-07-09 17:33 | Emergency (ER) | payer OTHER ==
[~2018-07-09] VITALS: Ht 160 cm; Wt 6.8 kg
--- OUTSIDE RECORDS SUMMARY | ~2018-07-09 | XMS | Clinical Summary ---
Demographics + + + | Address | [address] | | | [place] [address] | + + + | Home Phone | | + + + | Preferred Language | Unknown | + + + | Marital Status | | + + + | Muslim Affiliation | Unknown | + + + | Race | Unknown | + + + | Ethnic Group | Unknown | + + + Author + + + | Author | [facility] | | | and [place] | + + + | Organization | [facility] | | | and [place] | + + + | Address | Unknown | + + + | Phone | Unavailable | + + + Care Team Providers + +------+ + | Care Renovator Machine Operator Name | Role | Phone | + +------+ + | Omari Shabazz PA-C | PP | | + +------+ + Allergies + [...] (See Comments) | Medium | 07/07/19 | [place]ann[place] like she | | | | | 19 | couldn't breathe | + + + + + + | Oxycodone | Other (See Comments) | Medium | 07/07/19 | [place]ann[place] heart racing, | | | | | [...] + + + Current Medications + + +-------+---------+------+------+-------+ | Prescription | Sig. | Disp. | Refills | Star | End | Statu | | | | | | t | Date | s | | | | | | Date | | | + + +-------+---------+------+------+-------+ | omeprazole | Take 20 mg by mouth | | | | | Activ | | (PRILOSEC) 20 mg | every morning | | | | | e | | capsule | (before breakfast). | | | | | | + + +-------+---------+------+------+-------+ | acetaminophen | Take 650 mg by mouth | | | | | Activ | | (TYLENOL) 325 mg | every 4 hours as | | | | | e | | tablet | needed for Pain. | | | | | | + + +-------+---------+------+------+-------+ | ibuprofen (ADVIL, | Take 400 mg by mouth | | | | | Activ | | MOTRIN) 400 mg | every 6 hours as | | | | | e | | tablet | needed for Pain. | | | | | | + + +-------+---------+------+------+-------+ | diphenhydrAMINE | Take 25 mg by mouth | | | | | Activ | | (BENADRYL) 25 mg | every 6 hours as | | | | | e | | tablet | needed for Itching | | | | | | | | or Allergies. | | | | | | + + +-------+---------+------+------+-------+ Active Problems Not on file Social History + +-------+ +--------+------+ | Tobacco Use | Types | Packs/Day | Years | Date | | | | | Used | | + +-------+ +--------+------+ | Never Smoker | | | | | + +-------+ +--------+------+ + + +---------+ + | Alcohol Use | Drinks/We | oz/Week | Comments | | | ek | | | + + +---------+ + | No [...] + | Blood Pressure | 144/75 | 07/06/20162142 PDT | + + + + | Pulse | 67 | 07/06/20162142 PDT | + + + + | Temperature | 36.9 C (98.5 F) | 07/06/20162010 PDT | + + + + | Respiratory Rate | 18 | 07/06/20162010 PDT | + + + + | Oxygen Saturation | 99% | 07/06/20162142 PDT | + + + + | Inhaled Oxygen | - | - | | Concentration | | | + + + + | Weight | 68 kg (150 lb) | 07/06/20162010 PDT | + + + + | Height | 160 cm (5' 3") | 07/06/20162010 PDT | + + + + | Body Mass Index | 26.57 | 07/06/20162010 PDT | + + + + Plan [...] | | | | | (#1) | 8 | [...] | | + +--------+ +--------+ +---------+ | [place]ICAID [place] | MEDICA | [id number] | Medica | [phone] | | | [place] | | id | [phone] | | | | PLUS | | | | | + +--------+ +--------+ +---------+ | [facility] | IHS | [id number] | Indemn | | | | SERVICE | YELLOW | | ity | | | | | HAWK | | | | | + +--------+ [...] | Self | [birth year] | Home: | [address] | | | joseph/Thee | | 1971 | [phone] | [place] [address] | | | karri | | | [phone] | | + +--------+ +--------+ + +
--- OUTSIDE RECORDS SUMMARY | ~2018-07-09 | XMS | Clinical Summary ---
Demographics + + + | Address | [address] | | | [place] [address] | + + + | Home Phone | | + + + | Preferred Language | Unknown | + + + | Marital Status | | + + + | Tenriism Affiliation | Unknown | + + + | Race | Unknown | + + + | Ethnic Group | Unknown | + + + Author + + + | Author | [facility] | + + + | Organization | [facility] | + + + | Address | Unknown | + + + | Phone | Unavailable | + + + Support + + +---------+ + | Name | Relationship | Address | Phone | + + +---------+ + | Contact,No | ECON | Unknown | | + + +---------+ + Care Team Providers + +------+ + | Care Civil Transportation Engineer Name | Role | Phone | + [...] +------+-------+ + | MEDICAID | MEDICA | [id number] | | | [address] | | | ID | | | | [place] | | | [place] | | | | [phone] | + +--------+ +------+-------+ + + +--------+ +--------+ + + | Guarantor Name | Accoun | Relation to | Date | Phone | Billing Address | | | t Type | Patient | of | | | | | | | | | | + +--------+ +--------+ + + | ENIO SHCMITZ | Person | Self | [birth year] | Home: | [address] | | | al/Thee | | 1971 | [phone] | [place] [address] | | | karri | | | [phone] | | + +--------+ +--------+ + +"
--- OUTSIDE RECORDS SUMMARY | ~2018-07-09 | XMS | Clinical Summary ---
Demographics + + + | Address | [address] | | | [place] [address] | + + + | Home Phone | | + + + | Preferred Language | Unknown | + + + | Marital Status | | + + + | Mu-Ism Affiliation | PRO | + + + [...] + | INOCENTE DANIELLE | ECON | [address] | | | R | | [place] | | | | | [address] | | + + + + + Care Team Providers + +------+ + | Care Operations Superintendent Name | Role | Phone | + +------+ + | Omari Shabazz | PP | | + +------+ + Source Comments JOSE is fully live on both EpicCare Ambulatory and EpicCare InPatient.[facility] Allergies + + + + [...] + + | 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
--- OUTSIDE RECORDS SUMMARY | ~2018-07-09 | XMS | Clinical Summary ---
Demographics + + + | Address | [address] | | | [place] [address] | + + + | Home Phone | | + + + | Preferred Language | Unknown | + + + | Marital Status | | + + + | Mandaen Affiliation | Unknown | + + + | Race | Unknown | + + + | Ethnic Group | Unknown | + + + Author + + + | Author | [facility] | + + + | Organization | [facility] | + + + | Address | Unknown | + + + | Phone | Unavailable | + + + Support + + +---------+ + | Name | Relationship | Address | Phone | + + +---------+ + | Contact,No | ECON | Unknown | | + + +---------+ + Care Team Providers + +------+ + | Care Leather Production Artisan Name | Role | Phone | + [...] +------+-------+ + | MEDICAID | MEDICA | [id number] | | | [address] | | | ID | | | | [place] | | | [place] | | | | [phone] | + +--------+ +------+-------+ + + +--------+ +--------+ + + | Guarantor Name | Accoun | Relation to | Date | Phone | Billing Address | | | t Type | Patient | of | | | | | | | | | | + +--------+ +--------+ + + | ENIO SCHMITZ | Person | Self | [birth year] | Home: | [address] | | | al/Thee | | 1971 | [phone] | [place] [address] | | | karri | | | [phone] | | + +--------+ +--------+ + +"
--- OUTSIDE RECORDS SUMMARY | ~2018-07-09 | XMS | Clinical Summary ---
Demographics + + + | Address | [address] | | | [place] [address] | + + + | Home Phone | | + + + | Preferred Language | Unknown | + + + | Marital Status | | + + + | Yazidism Affiliation | Unknown | + + + | Race | Unknown | + + + | Ethnic Group | Unknown | + + + Author + + + | Author | [facility] | | | and [place] | + + + | Organization | [facility] | | | and [place] | + + + | Address | Unknown | + + + | Phone | Unavailable | + + + Care Team Providers + +------+ + | Care Associate Professor Of Engineering Name | Role | Phone | + [...] (See Comments) | Medium | 07/07/19 | [place] like she | | | | | 19 | couldn't breathe | + + + + + + | Oxycodone | Other (See Comments) | Medium | 07/07/19 | [place] heart racing, | | | | | [...] +---------+ | [place]ICA[place] | MEDICA | [id number] | Medica | [phone] | | | | [place] | | id | [phone] | | | | PLUS | | | | | + +--------+ +--------+ +---------+ | [facility] | IHS | [id number] | Indemn | | | | SERVICE [...] | Self | [birth year] | Home: | [address] | | | joseph/Thee | | 1971 | [phone] | [place] [address] | | | karri | | | [phone] | | + +--------+ +--------+ + +
--- OUTSIDE RECORDS SUMMARY | ~2018-07-09 | XMS | Clinical Summary ---
Demographics + + + | Address | [address] | | | [place] [address] | + + + | Home Phone | | + + + | Preferred Language | Unknown | + + + | Marital Status | | + + + | Hoahaoism Affiliation | PRO | + + + [...] + | INOCENTE DANIELLE | ECON | [address] | | | R | | [place] | | | | | [address] | | + + + + + Care Team Providers + +------+ + | Care Portable Track Crew Chief Name | Role | Phone | + +------+ + | Omari Shabazz | PP | | + +------+ + Source Comments JOSE is fully live on both EpicCare Ambulatory and EpicCare InPatient.[facility] Allergies + + + + + + [...] + + | 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
[~2018-07-09 17:33] MED LIST changes: +ONDANSETRON ODT8 MG PO
--- OUTSIDE RECORDS SUMMARY | 2018-07-09 17:36 | XMS ---
PreManage Notification: NEIO SCHMITZ Security Credit Administration Officer Events No recent Security Events currently on file CRITERIA MET [facility] There are no care providers on record at this time. Care Guidelines exist for the following facilities: [facility] ( 07/14/2017 ) Jarett VISIT COUNT (12 MO.) 3 [facility] TOTAL 3 NOTE: Visits indicate total known visits. ED/UCC VISIT TRACKING (12 MO.) 07/09/2018 17:33 [facility] [place] TYPE: Emergency COMPLAINT: - SOB 01/17/2018 15:26 [facility] [place] TYPE: Emergency COMPLAINT: - ABNORMAL LABS DIAGNOSES: - Allergy status to other antibiotic agents status - Dehydration - Allergy status to other drugs, medicaments and biological substances status - Allergy status to narcotic agent status - Rhabdomyolysis - Other rn recovery (current) drug therapy - Allergy status to penicillin 07/09/2017 07:09 [facility] [place] TYPE: Emergency COMPLAINT: - REQUESTS BLOODWORK DIAGNOSES: - Allergy status to penicillin - Allergy status to narcotic agent status - Rhabdomyolysis - Other rn recovery (current) drug therapy - Allergy status to other drugs, medicaments and biological substances status - Migraine, unspecified, not intractable, without status migrainosus - Allergy status to other antibiotic agents status INPATIENT VISIT TRACKING (12 MO.) No inpatient visits to display in this time frame [id number]
[2018-07-09] MEDS ORDERED: XANAX0.5 MG PO (22:10)
--- NOTE | 2018-07-10 07:57 | EKG ---
[facility] [address] [place], [place] [address] Signed Normal sinus rhythm Normal ECG When compared with ECG of 04-JUL-2016 14:54, No significant change was found Confirmed by TASHI PETERSEN MD ([id number]) on 07/10/2018 7:57:03 AM Electronically Signed By: TASHI PETERSEN MD 07/10/18 0757 PATIENT NAME: ENIO SCHMITZ SAMEER Electrocardiogram DATE OF : 74 PHYSICIAN: TASHI PETERSEN MD REPORT #: [id number] REPORT IS CONFIDENTIAL AND NOT TO BE RELEASED WITHOUT AUTHORIZATION
== END 2018-07-09 22:36 | disposition home or self-care (01) ==
LOC: ED 17:33
DX: J98.01 Acute bronchospasm (principal); L40.50 Arthropathic psoriasis, unspecified; Z88.0 Allergy status to penicillin; Z88.1 Allergy status to other antibiotic agents; Z88.5 Allergy status to narcotic agent; Z88.8 Allergy status to other drugs, medicaments and biological substances
CPT/HCPCS: 71046; 80053; 82550; 83880; 84484; 85025; 85379; 93005; 93010; 94640; 94645; 96374; 96375; 99285-25; C9113; J2060; J2930

== ENCOUNTER 2018-08-31 08:05 | Emergency (ER) | payer OTHER ==
[~2018-08-31] VITALS: Ht 160 cm; Wt 78.5 kg
--- OUTSIDE RECORDS SUMMARY | ~2018-08-31 | XMS | Encounter Summary ---
Demographics + + + | Address | [address] | | | [place] [address] | + + + | Home Phone | | + + + | Preferred Language | Unknown | + + + | Marital Status | | + + + | Jain Affiliation | PRO | + + + | Race | or | + + + | Ethnic Group | Not or | + + + Author + + + | Author | [facility] [facility] | + + + | Organization | [facility] [employer] [facility] | + + + | Address | Unknown | + + + | Phone | Unavailable | + + + Support + + + + + | Name | Relationship | Address | Phone | + + + + + | Conrad | ECON | [address] | | | [place] | | [place] | | | | | [address] | | + + + + + Care Team Providers + +------+ + | Care Cook Fishing Vessel Name | Role | Phone | + +------+ + | Omari Shabazz | PCP | | + +------+ + Encounter Details +--------+ + + + + | Date | Type | Department | Care Team | Description | +--------+ + + + + | 09/20/ | Document-Sc | UNKNOWN DEPARTMENT | Unknown . | | | 2014 | anned | [address] | | | | | | [facility] | | | | | | [place], [place] | | | | | | [address] | | | +--------+ + + + [...]
--- OUTSIDE RECORDS SUMMARY | ~2018-08-31 | XMS | Encounter Summary ---
Demographics + + + | Address | [address] | | | [place] [address] | + + + | Home Phone | | + + + | Preferred Language | Unknown | + + + | Marital Status | | + + + | Protestant Affiliation | PRO | + + + | Race | or | + + + | Ethnic Group | Not or | + + + Author + + + | Author | [facility] [employer] [facility] | + + + | Organization | [facility] [employer] [facility] | + + + | Address | Unknown | + + + | Phone | Unavailable | + + + Support + + + + + | Name | Relationship | Address | Phone | + + + + + | Conrad | ECON | [address] | | | [place] | | [place] | | | | | [address] | | + + + + + Care Team Providers + +------+ + | Care Printer Slotter Helper Name | Role | Phone | + +------+ + | Omari Shabazz | PCP | | + +------+ + Encounter Details +--------+ + + + + | Date | Type | Department | Care Team | Description | +--------+ + + + + | 08/04/ | Abstract | Neurology at | Clinic, Neurology | | | 2013 | | [facility] & | | | | | | Healing [address] | | | | | | [place] Mail Code: | | | | | | [facility] | | | | | | Health and Healing, | | | | | | [address] [facility], | | | | | | [place] [address] | | | | | | [phone] | | | +--------+ + + + [...]
--- OUTSIDE RECORDS SUMMARY | ~2018-08-31 | XMS | Clinical Summary ---
Demographics + + + | Address | [address] | | | [place] [address] | + + + | Home Phone | | + + + | Preferred Language | Unknown | + + + | Marital Status | | + + + | Mormonism Affiliation | Unknown | + + + | Race | Unknown | + + + | Ethnic Group | Unknown | + + + Author + + + | Author | [facility] | + + + | Organization | [facility] | + + + | Address | Unknown | + + + | Phone | Unavailable | + + + Support + + +---------+ + | Name | Relationship | Address | Phone | + + +---------+ + | Contact,No | ECON | Unknown | | + + +---------+ + Care Team Providers + +------+ + | Care Dialysis Chief Equipment Technician Name | Role | Phone | + +------+ + | Omari Shabazz | PP | | + +------+ + Allergies Not on File Current Medications Not on file Active Problems Not on file Social History [...] Influenza | | 02/24/2007 | | | (Season Ended) | 9 | | | + + + + + Results Not on filefrom Last 3 Months Insurance + +--------+ +------+-------+ + | Payer | Benefi | Subscriber | Type | Phone | Address | | | t Plan | ID | | | | | | / | | | | | | | Group | | | | | + +--------+ +------+-------+ + | MEDICAID | MEDICA | [id number] | | | [address] | | | ID | | | | [place] | | | [place] | | | | [phone] | + +--------+ +------+-------+ + + +--------+ +--------+ + + | Guarantor Name | Accoun | Relation to | Date | Phone | Billing Address | | | t Type | Patient | of | | | | | | | | | | + +--------+ +--------+ + + | ENIO SCHMITZ | Person | Self [birth year] | Home: | [address] | | | al/Thee | | 1971 | [phone] | [place] [address] | | | [place] | | | [phone] | | + +--------+ +--------+ + +"
--- OUTSIDE RECORDS SUMMARY | ~2018-08-31 | XMS | Clinical Summary ---
Demographics + + + | Address | [address] | | | [place] [address] | + + + | Home Phone | | + + + | Preferred Language | Unknown | + + + | Marital Status | | + + + | Amish Affiliation | PRO | + + + [...] + + | Conrad | ECON | [address] | | | [place] | | [place] | | | | | [address] | | + + + + + Care Team Providers + +------+ + | Care Chronic Care Nurse Name | Role | Phone | + +------+ + | Omari Shabazz | PP | | + +------+ + Source Comments JEANLENIN is fully live on both EpicCare Ambulatory and EpicCare InPatient.[facility] Allergies + + + + + + | Active Allergy | Reactions | Severity | Noted | Comments | | | | | Date | | + + + + + + | Prochlorperazine | Nausea and Vomiting | | 02/05/20 | | | Maleate | | | 13 | | + + + + + + | Erythromycin | Hives | | 02/04/20 | | | | | | 13 [...] | Promethazine Hcl | Myalgia | | 20 | Muscle spasms | | | | | 13 | | + + + + + + Medications + + + +---------+------+------+-------+ | Medication | Sig | Dispensed | Refills | Star | End | Statu | | | | | | t | Date | s | | | | | | Date | | | + + + +---------+------+------+-------+ | morphine ER (MS | Take 15 mg by mouth | | 0 | | | Activ | | CONTIN) 15 mg Oral | every twelve hours. | | | | | e | | tablet extended | | | | | | | | release | | | | | | | + + + +---------+------+------+-------+ | HYDROmorphone | Take 2 mg by mouth | | 0 | | | Activ | | (DILAUDID) [...] | | + + + +---------+------+------+-------+ | NORETHINDRONE A-E | Take by mouth once | | 0 | | | Activ | | ESTRADIOL (JUNEL | daily. | | | | | e | | 1.5/, 21, ORAL) | | | | | | | + + + +---------+------+------+-------+ | ondansetron | Take 4 mg by mouth | | 0 | | | Activ | | (ZOFRAN) 4 mg Oral | every twelve hours | | | | | e | | tablet | as needed. | | | | | | + + + +---------+------+------+-------+ | methotrexate 2.5 | Take 6 tablets by | 24 | 1 | 10/ | | Activ | | mg Oral tablet | mouth every seven | tablet | | 08/01 | | e | | | days. | | | 13 | | | + + + +---------+------+------+-------+ | folic acid 1 mg | Take 1 tablet by | 90 | 3 | 10/2 | | Activ | | Oral tablet | mouth once daily. 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 | + + + | Psoriatic arthritis | 02/04/2013 | + + + | [...] | + + + + + | Influenza (Flu) | | | | | vaccination (Season | 9 | | | | Ended) | | | | + + + [...] | | + +--------+ +--------+ +---------+--------+ | | [facility] | xxxxxxxxx | | [phone] | | Indemn | | | E WEST | | 014-Pr | 8 | | ity | | | | | esent | | | | | | HEALTH | | | | | | | | NET | | | | | | + +--------+ +--------+ +---------+--------+ | [facility] | [facility] | xxxxxxxxx | Effect | | | Agency | | SERVICE | | | cliff | | | | | | HEALTH | | for | | | | | | | | all | | | | | | SERVIC | | dates | | | | | | E | | | | | | + +--------+ +--------+ +---------+--------+ + +--------+ +--------+ + + | Guarantor Name | Accoun | Relation to | Date | Phone | Billing Address | | | t Type | Patient | of | | | | | | | | | | + +--------+ +--------+ + + | Maris Chi | Person | Self [birth year] | | [address] | | | joseph/Thee | | 1971 | [phone] | [place] [address] | | | [place] | | | 3 (Home) | | + +--------+ +--------+ + +
--- OUTSIDE RECORDS SUMMARY | ~2018-08-31 | XMS | Encounter Summary ---
Demographics + + + | Address | [address] | | | [place] [address] | + + + | Home Phone | | + + + | Preferred Language | Unknown | + + + | Marital Status | | + + + | Buddhism Affiliation | PRO | + + + | Race | or | + + + | Ethnic Group | Not or | + + + Author + + + | Author | [facility] | + + + | Organization | [facility] | + + + | Address | Unknown | + + + | Phone | Unavailable | + + + Support + + + + + | Name | Relationship | Address | Phone | + + + + + | Conrad | ECON | [address] | | | [place] | | [place] | | | | | [address] | | + + + + + Care Team Providers + +------+ + | Care Travel Insurance Agent Name | Role | Phone | + +------+ + | Omari Shabazz | PCP | | + +------+ + Encounter Details +--------+ + + + + | Date | Type | Department | Care Team | Description | +--------+ + + + + | 07/06/ | Document-Sc | UNKNOWN DEPARTMENT | Unknown . | | | 2013 | anned | [address] | | | | | | [facility] | | | | | | [place], [place] | | | | | | [phone] | | | +--------+ + + + [...]
--- OUTSIDE RECORDS SUMMARY | ~2018-08-31 | XMS | Encounter Summary ---
Demographics + + + | Address | [address] [facility] | | | [place] [address] | + + + | Home Phone | | + + + | Preferred Language | Unknown | + + + | Marital Status | | + + + | Voodoo Affiliation | PRO | + + + | Race | or | + + + | Ethnic Group | Not or | + + + Author + + + | Author | [facility] | + + + | Organization | [facility] | + + + | Address | Unknown | + + + | Phone | Unavailable | + + + Support + + + + + | Name | Relationship | Address | Phone | + + + + + | Conrad | ECON | [address] | | | [place] | | [place] | | | | | [address] | | + + + + + Care Team Providers + +------+ + | Care Handyman Name | Role | Phone | + +------+ + | Omari Shabazz | PCP | | + +------+ + Encounter Details +--------+------+ + + + | Date | Type | Department | Care Team | Description | +--------+------+ + + + | 02/04/ | Lab | Laboratory, | | Psoriatic arthritis | | 2012 | | Specimen Collection | | ([facility]); Carnitine | | | | at [facility] 3rd Floor | | palmitoyltransferase | | | | [address] | | II deficiency (HCC) | | | | [address] | | | | | | [place], [place] | | | | | | [address] | | | | | | [phone] | | | +--------+------+ + + + Social History + +-------+ [...] + +--------+ + + + | CBC AND AUTO DIFF | Routin | 02/04/2013 | Psoriatic | Results for this | | | e | 3:39 PM | arthritis (HCC) | procedure are in the | | | | PDT | | results section. | + +--------+ + + + | CBC, WITH | Routin | 02/04/2013 | Psoriatic | Results for this | | DIFFERENTIAL | e | 3:39 PM | arthritis (HCC) | procedure are in the | | | | PDT | | results section. | + +--------+ + + + | COMPLETE METABOLIC | Routin | 02/04/2013 | Psoriatic | Results for this | | SET | e | 3:39 PM | arthritis (HCC) | procedure are in the | | (NA,K,CL,CO2,BUN,CRE | | PDT | | results section. | | AT,GLUC,CA,AST,ALT,B | | | | | | PELON TOTAL,ALK | | | | | | PHOS,ALB,PROT TOTAL) | | | | | + +--------+ + + + | HIV-1,2 AB/HIV-1 P24 | Routin | 02/04/2013 | Psoriatic | Results for this | | AG SCRN | e | 3:39 PM | arthritis (HCC) | procedure are in the | | | | PDT | | results section. | + +--------+ + + + | C-REACTIVE PROTEIN | Routin | 02/04/2013 | Psoriatic | Results for this | | | e | 3:39 PM | arthritis (HCC) | procedure are in the | | | | PDT | | results section. | + +--------+ + + + | SEDIMENTATION RATE | Routin | 02/04/2013 | Psoriatic | Results for this | | | e | 3:39 PM | arthritis (HCC) | procedure are in the | | | | PDT | | results section. | + +--------+ + + + | ALDOLASE, SERUM | Routin | 02/04/2013 | Carnitine | Results for this | | | e | 3:39 PM | palmitoyltransferase | procedure are in the | | | | PDT | II deficiency ([facility]) | results section. | + +--------+ + + + | HEPATITIS B SURFACE | Routin | 02/04/2013 | Psoriatic | Results for this | | AG, SERUM | e | 3:39 PM | arthritis ([facility]) | procedure are in the | | | | PDT | | results section. | + +--------+ + + + | HEPATITIS C VIRUS | Routin | 02/04/2013 | Psoriatic | Results for this | | W/CONFIRMATION | e | 3:39 PM | arthritis ([facility]) | procedure are in the | | | | PDT | | results section. | + +--------+ + + + | CK, PLASMA | Routin | 02/04/2013 | Carnitine | Results for this | | | e | 3:39 PM | palmitoyltransferase | procedure are in the | | | | PDT | II deficiency (HCC) | results section. | + +--------+ + + + documented in this encounter Results CBC AND AUTO DIFF (02/04/2013 3:39 PM PDT) + + + + + + | Component | Value | Ref Range | Performed | Pathologist | | | | | At | Signature | + + + + + + | WHITE CELL | 9.55 | 4.40 - 11.00 | [facility] | | | COUNT | | K/cu mm | LABORATORY | | | | | | SERVICES, | | | | | | CORE | | + + + + + + | RED CELL | 4.37 | 4.00 - 5.20 | [facility] | | | COUNT | | M/cu mm | LABORATORY | | | | | | SERVICES, | | | | | | CORE | | + + + + + + | HEMOGLOBIN | 13.4 | 12.0 - 16.0 | [facility] | | | | | g/dL | LABORATORY | | | | | | SERVICES, | | | | | | CORE | | + + + + + + | HEMATOCRIT | 39.9 | 36.0 - 46.0 % | [facility] | | | | | | LABORATORY | | | | | | SERVICES, | | | | | | CORE | | + + + + + + | MCV | 91.3 | 80.0 - 96.0 fL | [facility] | | | | | | LABORATORY | | | | | | SERVICES, | | | | | | CORE | | + + + + + + | MCHC | 33.6 | 33.0 - 35.5 | [facility] | | | | | g/dL | LABORATORY | | | | | | SERVICES, | | | | | | CORE | | + + + + + + | RDW SD | 42.8 | 35.1 - 46.3 fL | [facility] | | | | | | LABORATORY | | | | | | SERVICES, | | | | | | CORE | | + + + + + + | PLATELET | 318 | 150 - 400 K/cu | [facility] | | | COUNT | | mm | LABORATORY | | | | | | SERVICES, | | | | | | CORE | | + + + + + + | MPV | 11.5 | 9.7 - 12.3 fL | [facility] | | | | | | LABORATORY | | | | | | SERVICES, | | | | | | CORE | | + + + + + + | NRBC% | 0.0 | 0.0 - 0.3 % | [facility] | | | | | | LABORATORY | | | | | | SERVICES, | | | | | | CORE | | + + + + + + | NRBC# | 0.00 | 0.00 - 0.02 | [facility] | | | | | K/cu mm | LABORATORY | | | | | | SERVICES, | | | | | | CORE | | + + + + + + | NEUTROPHIL | 72.0 (H) | 50.0 - 70.0 % | [facility] | | | % | | | LABORATORY | | | | | | SERVICES, | | | | | | CORE | | + + + + + + | LYMPHOCYTE | 19.8 | 18.0 - 42.0 % | [facility] | | | % | | | LABORATORY | | | | | | SERVICES, | | | | | | CORE | | + + + + + + | MONOCYTE % | 5.5 | 3.5 - 9.0 % | [facility] | | | | | | LABORATORY | | | | | | SERVICES, | | | | | | CORE | | + + + + + + | EOS % | 2.0 | 1.0 - 3.0 % | [facility] | | | | | | LABORATORY | | | | | | SERVICES, | | | | | | CORE | | + + + + + + | BASO % | 0.4 | 0.0 - 2.0 % | [facility] | | | | | | LABORATORY | | | | | | SERVICES, | | | | | | CORE | | + + + + + + | IG% | 0.3 | 0.0 - 0.6 % | [facility] | | | | | | LABORATORY | | | | | | SERVICES, | | | | | | CORE | | + + + + + + | NEUTROPHIL | 6.87 | 1.80 - 7.70 | [facility] | | | # | | K/cu mm | LABORATORY | | | | | | SERVICES, | | | | | | CORE | | + + + + + + | LYMPHOCYTE | 1.89 | 1.00 - 4.80 | [facility] | | | # | | K/cu mm | LABORATORY | | | | | | SERVICES, | | | | | | CORE | | + + + + + + | MONOCYTE # | 0.53 | 0.10 - 0.90 | [facility] | | | | | K/cu mm | LABORATORY | | | | | | SERVICES, | | | | | | CORE | | + + + + + + | EOS # | 0.19 | 0.00 - 0.50 | [facility] | | | | | K/cu mm | LABORATORY | | | | | | SERVICES, | | | | | | CORE | | + + + + + + | BASO # | 0.04 | 0.00 - 0.10 | [facility] | | | | | K/cu mm | LABORATORY | | | | | | SERVICES, | | | | | | CORE | | + + + + + + | IG# | 0.03 | 0.00 - 0.03 | [facility] | | | | | K/cu mm | LABORATORY | | | | | | SERVICES, | | | | | | CORE | | + + + + + + + + | Specimen | + + | Blood - Blood | + + + + + | Narrative | Performed At | + + + | Immature Granulocyes (IG) include metamyelocytes, myelocytes | [facility] | | and promyelocytes. Bands are not included in the IG count. New | LABORATORY | | methodology and reference ranges for some CBC/Differential analytes in | SERVICES, CORE | | effect on 10/30/12. | | + + + + + + + + | Performing | Address | City/State/Zipcode | Phone Number | | Organization | | | | + + + + + | [facility] | [address] | [place] [address] | | | SERVICES, CORE | [address] | | | + + + + + ALDOLASE, SERUM (02/04/2013 3:39 PM [...] | | | | | in the [facility] | | | | | | LaboratoryTest Directory | | | | | | (Pusher).Performed | | | | | | by [facility] | | | | | | [facility] Ed,[address] | | | | | | [place] [address] | | | | | | [phone].[facility]. | | | | | | [facility], Nadir Sung, | | | | | | , Lab. Director | | | | + + + + + + + + | Specimen | + + | Blood - Blood | + + + + + + + | Performing | Address | City/State/Zipcode | Phone Number | | Organization | | | | + + + + + | [facility] | [address] | [place], [place] | | | [facility] | | [address] | | + + + + + [...] + | [facility] | [address] | [place] [address] | | | SERVICES, CORE | [address] [...] + + + + + | [facility] | [address] | [place] [address] | | | SERVICES, SPECIAL | PARK [...] | | AG, SERUM | | | [facility] | | + + + + + + + + | Specimen | + + | Blood - Blood | + + + + + + + | Performing | Address | City/State/Zipcode | Phone Number | | Organization | | | | + + + + + | [facility] | [address] | [place] [address] | | | [facility] | | | | + + + [...] + | [facility] - | [address] | [place] [address] | | | [place] | | | | + + + [...] | | | LABORATORY | | | [place] | | | SERVICES, | | | [...] + + + + + | [facility] | [address] | [place] [address] | | | SERVICES, CORE | PARK [...] + | [facility] - | [address] | [place] [address] | | | [place] | | | [...] | + + + + + | [facility] | [address] | [place] [address] | | | SERVICES, CORE | [address] | | | + + + + + documented in this encounter Visit Diagnoses + + | Diagnosis | + + | Psoriatic arthritis (HCC) Psoriatic arthropathy | + + | 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
--- OUTSIDE RECORDS SUMMARY | ~2018-08-31 | XMS | Encounter Summary ---
Demographics + + + | Address | [address] | | | [place] [address] | + + + | Home Phone | | + + + | Preferred Language | Unknown | + + + | Marital Status | | + + + | Anabaptism Affiliation | PRO | + + + | Race | or | + + + | Ethnic Group | Not or | + + + Author + + + | Author | [facility] [facility] | + + + | Organization | [facility] [employer] [facility] | + + + | Address | Unknown | + + + | Phone | Unavailable | + + + Support + + + + + | Name | Relationship | Address | Phone | + + + + + | Conrad | ECON | [address] | | | [place] | | [place] | | | | | [address] | | + + + + + Care Team Providers + +------+ + | Care Form Setter Name | Role | Phone | + +------+ + | Omari Shabazz | PCP | | + +------+ + Encounter Details +--------+ + + + + | Date | Type | Department | Care Team | Description | +--------+ + + + + | 09/20/ | Document-Sc | UNKNOWN DEPARTMENT | Unknown . | | | 2014 | anned | [address] [facility] | | | | | | [facility] | | | | | | [place], [place] | | | | | | [address] | | | +--------+ + + + [...]
--- OUTSIDE RECORDS SUMMARY | ~2018-08-31 | XMS | Encounter Summary ---
Demographics + + + | Address | [address] | | | [place] [address] | + + + | Home Phone | | + + + | Preferred Language | Unknown | + + + | Marital Status | | + + + | Evangelical Affiliation | PRO | + + + | Race | or | + + + | Ethnic Group | Not or | + + + Author + + + | Author | [facility] [employer] [facility] | + + + | Organization | [facility] [employer] [facility] | + + + | Address | Unknown | + + + | Phone | Unavailable | + + + Support + + + + + | Name | Relationship | Address | Phone | + + + + + | Conrad | ECON | [address] | | | [place] | | [place] | | | | | [address] | | + + + + + Care Team Providers + +------+ + | Care Squad Leader Name | Role | Phone | + +------+ + | Omari Shabazz | PCP | | + +------+ + Encounter Details +--------+ + + + + | Date | Type | Department | Care Team | Description | +--------+ + + + + | 08/04/ | Abstract | Neurology at | Clinic, Neurology | | | 2013 | | [facility] & | | | | | | Healing [address] | | | | | | [address] Mail Code: | | | | | | [facility] | | | | | | Health and Healing, | | | | | | [address] [facility], | | | | | | [place] [address] | | | | | | [phone] | | | +--------+ + + + [...]
--- OUTSIDE RECORDS SUMMARY | ~2018-08-31 | XMS | Clinical Summary ---
Demographics + + + | Address | [address] | | | [place] [address] | + + + | Home Phone | | + + + | Preferred Language | Unknown | + + + | Marital Status | | + + + | Gnosticist Affiliation | Unknown | + + + | Race | Unknown | + + + | Ethnic Group | Unknown | + + + Author + + + | Author | [facility] | | | and [place] | + + + | Organization | [facility] | | | and [place] | + + + | Address | Unknown | + + + | Phone | Unavailable | + + + Care Team Providers + +------+ + | Care Pneumatic Tube Fitter Name | Role | Phone | + [...] (See Comments) | Medium | 07/07/19 | [place] like she | | | | | 19 | couldn't breathe | + + + + + + | Penicillins | Rash | Low | 07/07/19 | | | | | | 19 | | + + + + + + | Oxycodone | Other (See Comments) | Medium | 07/07/19 | [place] heart racing, | | | | | [...] Vaccine: Influenza | | | | | (Season Ended) | 9 [...] +---------+--------+ | MEDICAID [place] | MEDICA | [id number] | | [phone] | | Medica | | | [place] | | 016-Pr | 2 | | id | | | PLUS | | esent | | | | + +--------+ +--------+ +---------+--------+ | FORMERLY [facility] | IHS | [id number] | | | | Indemn | | [...] Person | Self | [birth year] | [address] | | | joseph/Thee | | 1971 | [phone] | [place] [address] | | | karri | | | 3 (Home) | | + +--------+ +--------+ + + Advance Directives Patient has advance care planning documents on file. For more information, please contact:[facility] and [facility] [place] [address]
--- OUTSIDE RECORDS SUMMARY | ~2018-08-31 | XMS | Encounter Summary ---
Demographics + + + | Address | [address] | | | [place] [address] | + + + | Home Phone [...] + + | Author | [facility] [employer] [facility] | + + + | Organization | [facility] [employer] [facility] | + + + | Address | Unknown | + + + | Phone | Unavailable | + + + Support + + + + + | Name | Relationship | Address | Phone | + + + + + | Conrad | ECON | [address] | | | [place] | | [place] | | | | | [address] | | + + + + + Care Team Providers + +------+ + | Care Flight Technician Name | Role | Phone | [...] | | | arthritis | [address] | ,PhD Barrera | | | | | ([facility]) | [address] | Allergy | | | | | Procedures | Rd | Asthma | | | | | CONSULT TO | [place], [place] | Dermatology | | | | | DERM & DERM | [address] | [address] | | | | | SURGERY | Phone: | [address] | | | | | | [phone] | [address] | | | | | | Fax: | [place], [place] | | | | | | [phone] | [address] Phone: | | | | | | | [phone] | | | | | | | Fax: | | | | | | | [phone] | +--------+--------+ + + + + Consultation [...] | | | palmitoyltra | [address] | [address] | | | | | nsferase II | [address] | Ave | | | | | deficiency | Rd | [place], [place] | | | | | ([facility]) | [facility] [place] | [address] | | | | | Rhabdomyolys | [address] | | | | | | is | Phone: | | | | | | Procedures | [phone] | | | | | | CONSULT TO | Fax: | | | | | | NEUROMUSCULA | [phone] | | | | | | R [...] Psoriatic | Epic Dept | [address]pv [address] | | | | | arthropathy | | [address] | | | | | ([facility]) | | [facility] | | | | | | | Mailcode: | | | | | | | OP09 | | | | | | | Physicians | | | | | | | Cathy, 4th | | | | | | | Floor | | | | | | | [facility] [place] | | | | | | | [address] | | | | | | | Phone: | | | | | | | [phone] | | | | | | | Fax: | | | | | | | [phone] | +--------+--------+ + + + + Encounter Details +--------+---------+ + + + | Date | Type | Department | Care Team | Description | +--------+---------+ + + + | 02/04/ | Office | Rheumatology at | [place], | Carnitine | | 2012 | Visit | Yevgeniy Morgan | [address] | 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 ([facility]) | | | | [facility] | [place] [address] | (Primary Dx); | | | | Mailcode: [id number] | [phone] | Psoriatic arthritis | | | | Yevgeniy Morgan, | | ([facility]); Chronic pain | | | | 4th Floor | | disorder; Psoriasis | | | | [place], [place] | | | | | | [address] | | | | | | [phone] | | | +--------+---------+ + + + [...] 02/04/2013 12:20 PM PDT Rheumatology New Patient ConsultThis consultation was requested by Omari Shabazz [facility] [address] [facility] [address] [place], [place] [phone] Date:02/04/2013 Maris Chi -1970 [facility] ID: Maris Chi is a 42 y.o. female referred here for management of PsA. 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 HPI: For PsO and PsA she Was seeing youth advocate in [place]. Dr Chuck Glover. PsO started at ag e 25 secondary to a stress. Over extremities and trunk. Tried laser, MTX, topicals, clobex e tc. Breaks in between for six pregnancies. Then enbrel worked for 2 yrs and then stopped wor monserrat and humira was started about 3 yrs. Then moved to [facility] 2 yrs ago who has been [...] 15 mg by mouth every twelve hours. .09/10 (21) ORAL Take by mouth once daily. OMEPRAZOLE 20 MG CAPSULE,DELAYED RELEASE Take 20 mg by mouth two times daily. ONDANSETRON HCL 4 MG TABLET Take 4 mg by mouth every twelve hours as needed. Problems/ PMH Patient Active Problem List Diagnosis Carnitine palmitoyltransferase II deficiency Psoriatic arthritis Chronic pain disorder Has a bicuspid aortic valve with a slight murmur. 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 Asx Neuromuscular consult note from dr Arnulfo [...] 08/[address] Monae at [facility]. They concurred that CPT 2 def [...] Ramirez hence she needs a referral to [facility] Neuromuscular clinic. 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 In 2007 one morning was wobbly and had myalgias which worsened, couldn't walk at all, [place] [address]. Since then has had recurrent rhabdomyoly sis [...] de ficiency. Will seek neuromuscular opinion at [facility] to clarify this issues with Univ [...] (which was studied in a recent RCT, [facility] November 2009), walking, yoga, pilates, swimming, water [...] in 3 mths I spent 60 minutes [id number] with the patient with over 50% in counseling the patient re garding her disease. Chula Vargas MD Instructor, Division of Arthritis and Rheumatic Diseases Pager- [phone] Mail Code OP-[id number] [address] [place] [address] documented in this encount er Plan of [...] | | + +---------+ + + | [facility] DEPARTMENT OF | | | | | [...] Directory | | | | | | (Tego).Performed | | | | | | by [facility] | | | | | | Laboratories,[address] | | | | | | [place] [address] | | | | | | [phone]. | | | | | | [facility], Nadir Sung, | | | | [...] [facility] | [address] | [place], [place] | | | [facility] | | [address] | | + + + + + [...] + | [facility] | [address] | [place] [address] | | | SERVICES, CORE | PARK [...] | + + + + + | [facility] | [address] | [place] [address] | | | SERVICES, SPECIAL | PARK [...] | | AG, SERUM | | | [place] | | + + + + + + + + | Specimen | + + | Blood - Blood | + + + + + + + | Performing | Address | City/State/Zipcode | Phone Number | | Organization | | | | + + + + + | [facility] | [address] | [place] [address] | | | [place] | | | [...] + | [facility] - | [address] | [place] [address] | | | [place] | | | | + + + [...] | | | LABORATORY | | | [place]OREAN | | | SERVICES, | | | [...] | + + + + + | [facility] | [address] | [place] [address] | | | SERVICES, CORE | PARK [...] + | [facility] - | [address] | [place] [address] | | | [place] | | | [...] JOSE OJEDA | [address] | [place] [address] | | | ANDREW CONNELL | [address] [...]
--- OUTSIDE RECORDS SUMMARY | ~2018-08-31 | XMS | Encounter Summary ---
Demographics + + + | Address | [address] | | | [place] [address] | + + + | Home Phone | | + + + | Preferred Language | Unknown | + + + | Marital Status | | + + + | Baptism Affiliation | PRO | + + + | Race | or | + + + | Ethnic Group | Not or | + + + Author + + + | Author | [facility] [employer] [facility] | + + + | Organization | [facility] [employer] [facility] | + + + | Address | Unknown | + + + | Phone | Unavailable | + + + Support + + + + + | Name | Relationship | Address | Phone | + + + + + | Conrad | ECON | [address] | | | [place] | | [place] | | | | | [address] | | + + + + + Care Team Providers + +------+ + | Care Finished Cloth Examiner Name | Role | Phone | + +------+ + | Omari Shabazz | PCP | | + +------+ + Encounter Details +--------+------+ + + + | Date | Type | Department | Care Team | Description | +--------+------+ + + + | 02/04/ | Lab | Laboratory, | | Psoriatic arthritis | | 2012 | | Specimen Collection | | ([facility]); Carnitine | | | | at [facility] 3rd Floor | | palmitoyltransferase | | | | [address] | | II deficiency (HCC) | | | | [address] | | | | | | [place], [place] | | | | | | [address] | | | | | | [phone] | | | +--------+------+ + + + [...] | | | PDT | II deficiency ([facility]) | results section. | + +--------+ + + + | HEPATITIS B SURFACE | Routin | 02/04/2013 | Psoriatic | Results for this | | AG, SERUM | e | 3:39 PM | arthritis ([facility]) | procedure are in the | | | | PDT | | results section. | + +--------+ + + + | HEPATITIS C VIRUS | Routin | 02/04/2013 | Psoriatic | Results for this | | W/CONFIRMATION | e | 3:39 PM | arthritis ([facility]) | procedure are in the | | [...] | + + + + + | [facility] | [address] | [place] [address] | | | SERVICES, CORE | PARK [...] Directory | | | | | | (Appy Pie).Performed | | | | | | by [facility] | | | | | | [facility] Ed,[address] | | | | | | [place] [address] | | | | | | [phone].[employer]. | | | | | | [facility], Nadir Sung, | | [...] [facility] | [address] | [place], [place] | | | [facility] | | [address] | | + + + + + [...] [facility] | [address] | [place] [address] | | | SERVICES, CORE | PARK [...] | + + + + + | [facility] | [address] | [place] [address] | | | SERVICES, SPECIAL | PARK [...] + | [facility] - | [address] | [place] [address] | | | [facility] [...] + | [facility] - | [address] | [place] [address] | | | [place] | | | | + + + [...] | | | LABORATORY | | | [facility] | | | SERVICES, | | | [...] | + + + + + | [facility] | [address] | [place] [address] | | | SERVICES, CORE | PARK [...] + | [facility] | [address] | [place] [address] | | | [place] | | | [...] [facility] | [address] | [place] [address] | | | SERVICES, CORE | [address] | | | + + + + + documented in this encounter Visit Diagnoses + + | Diagnosis | + + | Psoriatic arthritis (HCC) Psoriatic arthropathy | + + | 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
--- OUTSIDE RECORDS SUMMARY | ~2018-08-31 | XMS | Encounter Summary ---
Demographics + + + | Address | [address] | | | [place] [address] | + + + | Home Phone | | + + + | Preferred Language | Unknown | + + + | Marital Status | | + + + | Oriental Orthodox Affiliation | PRO | + + + | Race | or | + + + | Ethnic Group | Not or | + + + Author + + + | Author | [facility] | + + + | Organization | [facility] | + + + | Address | Unknown | + + + | Phone | Unavailable | + + + Support + + + + + | Name | Relationship | Address | Phone | + + + + + | Conrad | ECON | [address] | | | Loraine | | [place] | | | | | [address] | | + + + + + Care Team Providers + +------+ + | Care International Student Advisor Name | Role | Phone | + +------+ + | Omari Shabazz | PCP | | + +------+ + Encounter Details +--------+ + + + + | Date | Type | Department | Care Team | Description | +--------+ + + + + | 09/07/ | Documentati | Rheumatology at | Chula Ayala, | | | 2013 | on | Physicians Cathy | [address] | | | | | [address] | [facility] [address] | | | | | [facility] | [place] [address] | | | | | Mailcode: OP09 | [phone] | | | | | Physicians Cathy, | | | | | | 4th Floor | | | | | | [place], [place] | | | | | | [address] | | | | | | [phone] | | | +--------+ + + + [...]
--- OUTSIDE RECORDS SUMMARY | ~2018-08-31 | XMS | Encounter Summary ---
Demographics + + + | Address | [address] | | | [place] [address] | + + + | Home Phone | | + + + | Preferred Language | Unknown | + + + | Marital Status | | + + + | Anabaptist Affiliation | PRO | + + + | Race | or | + + + | Ethnic Group | Not or | + + + Author + + + | Author | [facility] [employer] [facility] | + + + | Organization | [facility] [employer] [facility] | + + + | Address | Unknown | + + + | Phone | Unavailable | + + + Support + + + + + | Name | Relationship | Address | Phone | + + + + + | Conrad | ECON | [address] | | | Loraine | | [place] | | | | | [address] | | + + + + + Care Team Providers + +------+ + | Care Laundry Or Dry Cleaners Counter Clerk Name | Role | Phone | + +------+ + | Omari Shabazz | PCP | | + +------+ + Encounter Details +--------+ + + + + | Date | Type | Department | Care Team | Description | +--------+ + + + + | 02/04/ | Hospital | Diagnostic | | | | 2012 | Encounter | Radiology at [facility] | | | | | | [address] [facility] | | | | | | [facility] | | | | | | Mailcode: [id number] | | | | | | Physicians Cathy | | | | | | [place], [place] | | | | | | [address] | | | | | | [phone] | | | +--------+ + + + [...] | | | | | | 1.5, , ORAL) | | | | | | [...] | | + +---------+ + + | [facility] DEPARTMENT OF | | | | | RADIOLOGY | | | | + +---------+ + + documented in this encounter Visit Diagnoses + + | Diagnosis | + + | Psoriatic arthritis (HCC) Psoriatic arthropathy | + + documented in this encounter"
--- OUTSIDE RECORDS SUMMARY | ~2018-08-31 | XMS | Encounter Summary ---
Demographics + + + | Address | [address] | | | [place] [address] | + + + | Home Phone | | + + + | Preferred Language | Unknown | + + + | Marital Status | | + + + | Religion Affiliation | PRO | + + + | Race | or | + + + | Ethnic Group | Not or | + + + Author + + + | Author | [facility] [employer] [facility] | + + + | Organization | [facility] [employer] [facility] | + + + | Address | Unknown | + + + | Phone | Unavailable | + + + Support + + + + + | Name | Relationship | Address | Phone | + + + + + | Conrad | ECON | [address] | | | [place]aine | | [place] | | | | | [address] | | + + + + + Care Team Providers + +------+ + | Care Emergency Medical Technician/Driver Name | Role | Phone | + +------+ + | Omari Shabazz | PCP | | + +------+ + Encounter Details +--------+ + + + + | Date | Type | Department | Care Team | Description | +--------+ + + + + | 07/06/ | Document-Sc | UNKNOWN DEPARTMENT | Unknown . | | | 2013 | anned | [address] [facility] | | | | | | [facility] | | | | | | [place], [place] | | | | | | [address] | | | +--------+ + + + [...]
--- OUTSIDE RECORDS SUMMARY | ~2018-08-31 | XMS | Encounter Summary ---
Demographics + + + | Address | [address] | | | [place] [address] | + + + | Home Phone [...] + + + | Author | [facility] [employer] [facility] | + + + | Organization | [facility] [employer] [facility] | + + + | Address | Unknown | + + + | Phone | Unavailable | + + + Support + + + + + | Name | Relationship | Address | Phone | + + + + + | Conrad | ECON | [address] | | | Baron | | [place] | | | | | [address] | | + + + + + Care Team Providers + +------+ + | Care Bar Roller Name | Role | Phone | + +------+ + PCP | Unavailable | + +------+ + Encounter Details +--------+ + + + + | Date | Type | Department | Care Team | Description | +--------+ + + + + | 11/03/ | Abstract | Rheumatology at | Clinic, | | | 2012 | | Yevgeniy Morgan | Rheumatology | | | | | [address] | | | | | | [facility] | | | | | | Mailcode: [id number] | | | | | | Yevgeniy Morgan | | | | | | [place], [place] | | | | | | [address] | | | | | | [phone] | | | +--------+ + + + [...]
--- OUTSIDE RECORDS SUMMARY | ~2018-08-31 | XMS | Encounter Summary ---
Demographics + + + | Address | [address] | | | [place] [address] | + + + | Home Phone | | + + + | Preferred Language | Unknown | + + + | Marital Status | | + + + | Restoration Affiliation | PRO | + + + | Race | or | + + + | Ethnic Group | Not or | + + + Author + + + | Author | [facility] [employer] [facility] | + + + | Organization | [facility] [employer] [facility] | + + + | Address | Unknown | + + + | Phone | Unavailable | + + + Support + + + + + | Name | Relationship | Address | Phone | + + + + + | Conrad | ECON | [address] | | | Loraine | | [place] | | | | | [address] | | + + + + + Care Team Providers + +------+ + | Care Dryer Operator Name | Role | Phone | [...] ,PhD Barrera | | | | | ([facility]) | [address] | Allergy | | | | | Procedures | Rd | Asthma | | | | | CONSULT TO | [place], [place] | Dermatology | | | | | DERM & DERM | [address] | [address] | | | | | SURGERY | Phone: | [address] | | | | | | [phone] | [address] | | | | | | Fax: | [place], [place] | | | | | | [phone] | [address] Phone: | | | | | | | [phone] | | | | | | | Fax: | | | | | | | [phone] | +--------+--------+ + + + + Consultation [...] | | | deficiency | Rd | [place], [place] | | | | | ([facility]) | [facility] [place] | [address] | | | | | Rhabdomyolys | [address] | | | | | | is | Phone: | | | | | | Procedures | [phone] | | | | | | CONSULT TO | Fax: | | | | | | NEUROMUSCULA | [phone] | | | | | | R [...] Jeffery Simms | | | | | ([facility]) | | [facility] | | | | | | | Mailcode: | | | | | | | OP09 | | | | | | | Physicians | | | | | | | Cathy, 4th | | | | | | | Floor | | | | | | | [facility] [place] | | | | | | | [address] | | | | | | | Phone: | | | | | | | [phone] | | | | | | | Fax: | | | | | | | [phone] | +--------+--------+ + + + + Encounter Details +--------+---------+ + + + | Date | Type | Department | Care Team | Description | +--------+---------+ + + + | 02/04/ | Office | Rheumatology at | Chula Ayala, | Carnitine | | 2012 | Visit | Yevgeniy Morgan | [address] | 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 ([facility]) | | | | [facility] | [place] [address] | (Primary Dx); | | | | Mailcode: [id number] | [phone] | Psoriatic arthritis | | | | Yevgeniy Morgan, | | ([facility]); Chronic pain | | | | 4th Floor | | disorder; Psoriasis | | | | [place], [place] | | | | | | [address] | | | | | | [phone] | | | +--------+---------+ + + + [...] ConsultThis consultation was requested by Omari Shabazz [facility] [address] [facility] [address] [place], [place] [phone] Date:02/04/2013 Maris Chi -1970 [facility] ID: Maris Chi is a 42 y.o. female referred here for management of PsA. 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 Dr Chuck Glover. PsO started at ag e 25 secondary to a stress. Over extremities and trunk. Tried laser, MTX, topicals, clobex e tc. Breaks in between for six pregnancies. Then enbrel worked for 2 yrs and then stopped wor monserrat and humira was started about 3 yrs. Then moved to [facility] 2 yrs ago who has been [...] valve with a slight murmur. 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 Asx Neuromuscular consult note from dr Arnulfo [...] 08/[address] Monae at [facility]. They concurred that CPT 2 def seemed less likely because it was only a partial deficiency or carrier status, further s upported by normal CPT/ citrate synthase ratio. The comprehensive panel on the muscle biopsy was not done to r/o other metabolic myopathies/ mitochondrial diseases. They wanted her to be seen by Dr Donn Ramirez however her [facility] doesn't refer to Dr Ramirez hence she needs a referral to [facility] Neuromuscular clinic. 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 In 2007 one morning was wobbly and had myalgias which worsened, couldn't walk at all, [place] was about [address]. Since then has had recurrent rhabdomyoly sis [...] de ficiency. Will seek neuromuscular opinion at [facility] to clarify this issues with Univ [...] (which was studied in a recent RCT, [facility] November 2009), walking, yoga, pilates, [...] in 3 mths I spent 60 minutes yvok-xy-pybc with the patient with over 50% in counseling the patient re garding her disease. Chula Vargas MD Instructor, Division of Arthritis and Rheumatic Diseases Pager- [phone] Mail Code [id number] [place] [address] documented in this encount er Plan of [...] | | + +---------+ + + | [facility] DEPARTMENT OF | | | | [...] Directory | | | | | | ([employer]).Performed | | | | | | by [facility] | | | | | | [facility],[address] | | | | | | [place] [address] | | | | | | [phone] | | | | | | [facility], Nadir Sung, | | | [...] [facility] | [address] | [place], [place] | | | UNIV P[facility] | | [address] | | + + + + + [...] [facility] | [address] | [place] [address] | | | SERVICES, CORE | PARK [...] | + + + + + | [facility] | [address] | [place] [address] | | | SERVICES, SPECIAL | PARK [...] | | AG, SERUM | | | [place] | | + + + + + + + + | Specimen | + + | Blood - Blood | + + + + + + + | Performing | Address | City/State/Zipcode | Phone Number | | Organization | | | | + + + + + | [facility] | [address] | [place] [address] | | | [place] | | | [...] + | [facility] | [address] | [place] [address] | | | [place] | | | | + + + [...] | | | LABORATORY | | | [place] [place] | | | SERVICES, | | | [...] | + + + + + | [facility] | [address] | [place] [address] | | | SERVICES, CORE | PARK [...] + | [facility] | [address] | [place] [address] | | | [place] | | | [...] JOSE O[facility]ED[facility] | [address] | [place] [address] | | | ANDREW CONNELL | JENNIFER [...]
--- OUTSIDE RECORDS SUMMARY | ~2018-08-31 | XMS | Encounter Summary ---
Demographics + + + | Address | [address] | | | [place] [address] | + + + | Home Phone | | + + + | Preferred Language | Unknown | + + + | Marital Status | | + + + | Bahai Affiliation | PRO | + + + | Race | or | + + + | Ethnic Group | Not or | + + + Author + + + | Author | [facility] [employer] [facility] | + + + | Organization | [facility] [employer] [facility] | + + + | Address | Unknown | + + + | Phone | Unavailable | + + + Support + + + + + | Name | Relationship | Address | Phone | + + + + + | Conrad | ECON | [address] | | | [place] | | [place] | | | | | [address] | | + + + + + Care Team Providers + +------+ + | Care Clerical Manager Name | Role | Phone | + +------+ + | Omari Shabazz | PCP | | + +------+ + Encounter Details +--------+ + + + + | Date | Type | Department | Care Team | Description | +--------+ + + + + | 02/04/ | Hospital | Diagnostic | | | | 2012 | Encounter | Radiology at [facility] | | | | | | [address] | | | | | | [facility] | | | | | | Mailcode: [id number] | | | | | | Physicians Cathy | | | | | | [place], [place] | | | | | | [address] | | | | | | [phone] | | | +--------+ + + + [...] | | + +---------+ + + | [facility] DEPARTMENT OF | | | | | RADIOLOGY | | | | + +---------+ + + documented in this encounter Visit Diagnoses + + | Diagnosis | + + | Psoriatic arthritis (HCC) Psoriatic arthropathy | + + documented in this encounter"
--- OUTSIDE RECORDS SUMMARY | ~2018-08-31 | XMS | Clinical Summary ---
Demographics + + + | Address | [address] | | | [place] [address] | + + + | Home Phone | | + + + | Preferred Language | Unknown | + + + | Marital Status | | + + + | Jew Affiliation | PRO | + + + [...] + + | Conrad | ECON | [address] | | | [place] | | [place] | | | | | [address] | | + + + + + Care Team Providers + +------+ + | Care Gear Roller Name | Role | Phone | + +------+ + | Omari Shabazz | PP | | + +------+ + Source Comments JEANLENIN is fully live on both EpicCare Ambulatory and EpicCare InPatient.[facility] Allergies + + + + + + [...] | | + +--------+ +--------+ +---------+--------+ | [facility] | [facility] | xxxxxxxxx | Effect | | | [...] Person | Self | [birth year] | [address] | | | joseph/Thee | | 1971 | [phone] | [place] [address] | | | karri | | | 3 (Home) | | + +--------+ +--------+ + +
--- OUTSIDE RECORDS SUMMARY | ~2018-08-31 | XMS | Encounter Summary ---
Demographics + + + | Address | [address] | | | [place] [address] | + + + | Home Phone | | + + + | Preferred Language | Unknown | + + + | Marital Status | | + + + | Episcopalian Affiliation | PRO | + + + | Race | or | + + + | Ethnic Group | Not or | + + + Author + + + | Author | [facility] [employer] [facility] | + + + | Organization | [facility] [employer] [facility] | + + + | Address | Unknown | + + + | Phone | Unavailable | + + + Support + + + + + | Name | Relationship | Address | Phone | + + + + + | Conrad | ECON | [address] | | | Baron | | [place] | | | | | [address] | | + + + + + Care Team Providers + +------+ + | Care Senior Application Software Engineer Name | Role | Phone | [...] [address] | | | | | | [facility] | | | | | | Mailcode: [id number] | | | | | | Yevgeniy Morgan | | | | | | [place], [place] | | | | | | [address] | | | | | | [phone] | | | +--------+ + + + [...]
--- OUTSIDE RECORDS SUMMARY | ~2018-08-31 | XMS | Clinical Summary ---
Demographics + + + | Address | [address] | | | [place] [address] | + + + | Home Phone | | + + + | Preferred Language | Unknown | + + + | Marital Status | | + + + | Baptism Affiliation | Unknown | + + + | Race | Unknown | + + + | Ethnic Group | Unknown | + + + Author + + + | Author | [facility] | | | and [place] | + + + | Organization | [facility] | | | and [place] | + + + | Address | Unknown | + + + | Phone | Unavailable | + + + Care Team Providers + +------+ + | Care Management Advisor Name | Role | Phone | [...] (See Comments) | Medium | 07/07/19 | Sims like she | | | | | 19 | couldn't breathe | + + + + + + | Penicillins | Rash | Low | 07/07/19 | | | | | | 19 | | + + + + + + | Oxycodone | Other (See Comments) | Medium | 07/07/19 | Sims heart racing, | | | | | [...] +---------+--------+ | MEDICAID [place] | MEDICA | [id number] | | [phone] | | Medica | | | [place] | | 016-Pr | 2 | | id | | | PLUS | | esent | | | | + +--------+ +--------+ +---------+--------+ | [facility] | IHS | [id number] | | | | Indemn | | [...] Person | Self | [birth year] | [address] | | | joseph/Thee | | 1971 | [phone] | [place] [address] | | | karri | | | 3 (Home) | | + +--------+ +--------+ + + Advance Directives Patient has advance care planning documents on file. For more information, please contact:[facility] and [facility] [place] [address]
--- OUTSIDE RECORDS SUMMARY | ~2018-08-31 | XMS | Encounter Summary ---
Demographics + + + | Address | [address] | | | [place] [address] | + + + | Home Phone [...] + + | Author | [facility] [employer] [facility] | + + + | Organization | [facility] [employer] [facility] | + + + | Address | Unknown | + + + | Phone | Unavailable | + + + Support + + + + + | Name | Relationship | Address | Phone | + + + + + | Conrad | ECON | [address] | | | Loraine | | [place] | | | | | [address] | | + + + + + Care Team Providers + +------+ + | Care Prosecuting Attorney Name | Role | Phone | + [...] | Other | | 2017 | | [facility] & | | ([facility]) | | | | Healing [address] | | | | | | [address] Mail Code: | | | | | | [facility] | | | | | | Health and Healing, | | | | | | 8th floor [place], | | | | | | [place] [address] | | | | | | [phone] | | | +--------+ + + + [...]
--- OUTSIDE RECORDS SUMMARY | ~2018-08-31 | XMS | Encounter Summary ---
Demographics + + + | Address | [address] | | | [place] [address] | + + + | Home Phone | | + + + | Preferred Language | Unknown | + + + | Marital Status | | + + + | Sikh Affiliation | PRO | + + + | Race | or | + + + | Ethnic Group | Not or | + + + Author + + + | Author | [facility] [facility] | + + + | Organization | [facility] [employer] [facility] | + + + | Address | Unknown | + + + | Phone | Unavailable | + + + Support + + + + + | Name | Relationship | Address | Phone | + + + + + | Conrad | ECON | [address] | | | [place]aine | | [place] | | | | | [address] | | + + + + + Care Team Providers + +------+ + | Care Senior Controls Analyst Name | Role | Phone | + [...] | Other | | 2017 | | [facility] & | | ([facility]) | | | | Healing [address] | | | | | | [address] Mail Code: | | | | | | [facility] | | | | | | Health and Healing, | | | | | | 8th floor [place], | | | | | | [place] [address] | | | | | | [phone] | | | +--------+ + + + [...]
--- OUTSIDE RECORDS SUMMARY | ~2018-08-31 | XMS | Encounter Summary ---
Demographics + + + | Address | [address] | | | [place] [address] | + + + | Home Phone | | + + + | Preferred Language | Unknown | + + + | Marital Status | | + + + | Mandaeism Affiliation | PRO | + + + | Race | or | + + + | Ethnic Group | Not or | + + + Author + + + | Author | [facility] | + + + | Organization | [facility] | + + + | Address | Unknown | + + + | Phone | Unavailable | + + + Support + + + + + | Name | Relationship | Address | Phone | + + + + + | Conrad | ECON | [address] | | | [place]aine | | [place] | | | | | [address] | | + + + + + Care Team Providers + +------+ + | Care Glass Toughening Operator Name | Role | Phone | [...] | | [address] | [facility] [address] | | | | | [facility] | [place] [address] | | | | | Mailcode: OP09 | [phone] | | | | | Physicians Cathy, | | | | | | 4th Floor | | | | | | [place], [place] | | | | | | [address] | | | | | | [phone] | | | +--------+ + + + [...]
--- OUTSIDE RECORDS SUMMARY | ~2018-08-31 | XMS | Clinical Summary ---
Demographics + + + | Address | [address] | | | [place] [address] | + + + | Home Phone | | + + + | Preferred Language | Unknown | + + + | Marital Status | | + + + | Buddhist Affiliation | Unknown | + + + | Race | Unknown | + + + | Ethnic Group | Unknown | + + + Author + + + | Author | [facility] [employer] | + + + | Organization | [facility] [employer] | + + + | Address | Unknown | + + + | Phone | Unavailable | + + + Support + + +---------+ + | Name | Relationship | Address | Phone | + + +---------+ + | Contact,No | ECON | Unknown | | + + +---------+ + Care Team Providers + +------+ + | Care Operating Room Coordinator Name | Role | Phone | + [...] +------+-------+ + | MEDICAID | MEDICA | [id number] | | | [address] | | | [place] | | | | [place] | | | [place] | | | | [address] | + +--------+ +------+-------+ + + +--------+ +--------+ + + | Guarantor Name | Accoun | Relation to | Date | Phone | Billing Address | | | t Type | Patient | of | | | | | | | | | | + +--------+ +--------+ + + | ENIO SCHMITZ | Person | Self [birth year] | Home: | [address] | | | al/Thee | | 1971 | [phone] | [place] [address] | | | karri | | | [phone] | | + +--------+ +--------+ + +"
[~2018-08-31 08:05] MED LIST changes: +XANAX0.5 MG PO
--- OUTSIDE RECORDS SUMMARY | 2018-08-31 08:08 | XMS ---
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 \T\middot;\T\nbsp; PLEASE REFER PATIENT TO [facility] FOR NON EMERGENT MEDICAL NEEDS. \T\middot;\ T\nbsp; [facility] CAN SEE PATIENTS SAME DAY FOR APTS IF PATIENT CALLS FIRST THING IN THE MORNING. E.D. VISIT COUNT (12 MO.) 3 [facility] Cordon TOTAL 3 NOTE: Visits indicate total known visits. ED/UCC VISIT TRACKING (12 MO.) 08/31/2018 08:06 [facility] TYPE: Emergency COMPLAINT: - VAGINAL BLEEDING, ABD PAIN 07/09/2018 17:33 [facility] [place] TYPE: Emergency COMPLAINT: - SOB DIAGNOSES: - Allergy status to other drugs, medicaments and biological substances status - Acute bronchospasm - Arthropathic psoriasis, unspecified - Allergy status to other antibiotic agents status - Shortness of breath - Allergy status to narcotic agent status - Allergy status to penicillin 01/17/2018 15:[address] [facility] [place] TYPE: Emergency COMPLAINT: - ABNORMAL LABS DIAGNOSES: - Allergy status to other antibiotic agents status - Dehydration - Allergy status to other drugs, medicaments and biological substances status - Allergy status to narcotic agent status - Rhabdomyolysis - Other terminal carman (current) drug therapy - Allergy status to penicillin INPATIENT VISIT TRACKING (12 MO.) No inpatient visits to display in this time frame [email or web address]
== END 2018-08-31 10:31 | disposition home or self-care (01) ==
LOC: ED 08:05
DX: N93.8 Other specified abnormal uterine and vaginal bleeding (principal); Z88.0 Allergy status to penicillin; Z88.1 Allergy status to other antibiotic agents; Z88.5 Allergy status to narcotic agent; Z88.8 Allergy status to other drugs, medicaments and biological substances
CPT/HCPCS: 76830; 76856; 84703; 85025; 96374; 99284-25; J1885

== ENCOUNTER 2018-12-01 22:20 | Emergency (ER) | payer OTHER ==
[~2018-12-01] VITALS: Ht 160 cm; Wt 78.5 kg
--- OUTSIDE RECORDS SUMMARY | 2018-12-01 22:22 | XMS ---
PreManage Notification: ENIO SCHMITZ Security [employer] Events No recent Security Events currently on file CRITERIA MET - [facility] - Has Care Guidelines - PDMP CARE PROVIDERS BISHOP AMARAL Physician 07/10/2018-Current PHONE: Unknown Care Guidelines exist for the following facilities: [facility] ( 07/14/2017 ) Care History Medical/Surgical 07/10/2018 [facility] \T\middot;\T\nbsp; PATIENT IS A [employer] MEMBER. \T\middot;\T\nbsp; PLEASE REFER PATIENT TO [facility] FOR NON EMERGENT MEDICAL NEEDS. \T\middot;\ T\nbsp; [facility] CAN SEE PATIENTS SAME DAY FOR APTS IF PATIENT CALLS FIRST THING IN THE MORNING. E.D. VISIT COUNT (12 MO.) 4 [facility] TOTAL 4 NOTE: Visits indicate total known visits. ED/UCC VISIT TRACKING (12 MO.) 12/01/2018 22:20 [facility] [place] TYPE: Emergency COMPLAINT: - NAUSEA 08/31/2018 08:06 [facility] [place] TYPE: Emergency COMPLAINT: - VAGINAL BLEEDING, ABD PAIN DIAGNOSES: - Allergy status to penicillin - Allergy status to narcotic agent status - Other specified abnormal uterine and vaginal bleeding - Allergy status to other drugs, medicaments and biological substances status - Allergy status to other antibiotic agents status - Abnormal uterine and vaginal bleeding, unspecified 07/09/2018 17:33 [facility] [place] TYPE: Emergency COMPLAINT: - SOB DIAGNOSES: - Allergy status to other drugs, medicaments and biological substances status - Acute bronchospasm - Arthropathic psoriasis, unspecified - Allergy status to other antibiotic agents status - Shortness of breath - Allergy status to narcotic agent status - Allergy status to penicillin 01/17/2018 15:26 [facility] [place] TYPE: Emergency COMPLAINT: - ABNORMAL LABS DIAGNOSES: - Allergy status to other antibiotic agents status - Dehydration - Allergy status to other drugs, medicaments and biological substances status - Allergy status to narcotic agent status - Rhabdomyolysis - Other lobsterman (current) drug therapy - Allergy status to penicillin INPATIENT VISIT TRACKING (12 MO.) No inpatient visits to display in this time frame [email or web address]
[2018-12-01] MEDS ORDERED: IBUPROFEN800 MG PO (22:39)
[2018-12-01] MEDS ORDERED: ACETAMINOPHEN500 MG PO (22:39)
== END 2018-12-01 23:43 | disposition home or self-care (01) ==
LOC: ED 22:20
DX: R11.0 Nausea (principal); M62.82 Rhabdomyolysis; Z88.0 Allergy status to penicillin; Z88.1 Allergy status to other antibiotic agents; Z88.5 Allergy status to narcotic agent; Z88.8 Allergy status to other drugs, medicaments and biological substances
CPT/HCPCS: 80053; 81001; 82550; 83735; 84703; 85025; 96374; 99283-25; J2405; J7030

== ENCOUNTER 2019-01-12 22:49 | Emergency (ER) | payer OTHER ==
[~2019-01-12] VITALS: Ht 160 cm; Wt 78.7 kg
--- OUTSIDE RECORDS SUMMARY | ~2019-01-12 | XMS | Encounter Summary ---
Demographics + + + | Address | [address] | | | [place] [address] | + + + | Home Phone | | + + + | Preferred Language | Unknown | + + + | Marital Status | | + + + | Judaism Affiliation | PRO | + + + | Race | or | + + + | Ethnic Group | Not or | + + + Author + + + | Author | [facility] | + + + | Organization | [facility] | + + + | Address | Unknown | + + + | Phone | Unavailable | + + + Support + + + + + | Name | Relationship | Address | Phone | + + + + + | Conrad | ECON | [address] | | | [place] | | [place] | | | | | [address] | | + + + + + Care Team Providers + +------+ + | Care Aba Tutor Name | Role | Phone | + +------+ + | Omari Shabazz | PCP | | + +------+ + Encounter Details +--------+ + + + + | Date | Type | Department | Care Team | Description | +--------+ + + + + | 02/04/ | Hospital | Diagnostic | | | | 2012 | Encounter | [facility] | | | | | | [address] | | | | | | [place] Mailcode: | | | | | | [address] | | | | | | [place], | | | | | | [place] [address] | | | | | | [phone] | | | +--------+ + + + + Social History + +-------+ +--------+------+ | Tobacco Use | Types | Packs/Day | Years | Date | | | | | Used | | + +-------+ +--------+------+ | Never Smoker | | | | | + +-------+ +--------+------+ + + +---------+ + | Alcohol Use | Drinks/Week | oz/Week | Comments | + + +---------+ + | Not Asked | | | | + + +---------+ + + + + | Sex Assigned at | Date Recorded | | | | + + + | Not on file | | + + + + + + + | Job Start Date | Occupation | Industry | + + + + | Not on file | Not on file | Not on file | + + + + + + + + | Travel History | Travel Start | Travel End | + + + + + + | No recent travel history available. | + + documented as of this encounter Medications at Time of Discharge + + + +---------+ + + | Medication | Sig | Dispensed | Refills | Start | End Date | | | | | | Date | | + + + +---------+ + + | folic acid 1 mg | Take 1 tablet by | 90 | 3 | 02/05/20 | | | Oral tablet | mouth once daily. | tablet | | 13 | | + + + +---------+ + + | HYDROmorphone | Take 2 mg by mouth | | 0 | | | | (DILAUDID) 2 mg Oral | twice daily as | | | | | | tablet | needed. | | | | | + + + +---------+ + + | methotrexate 2.5 | Take 6 tablets by | 24 | 1 | 02/05/20 | | | mg Oral tablet | mouth every seven | tablet | | 13 | | | | days. | | | | | + + + +---------+ + + | morphine ER (MS | Take 15 mg by mouth | | 0 | | | | CONTIN) 15 mg Oral | every twelve hours. | | | | | | tablet extended | | | | | | | release | | | | | | + + + +---------+ + + | NORETHINDRONE A-E | Take by mouth once | | 0 | | | | ESTRADIOL (JUNEL | daily. | | | | | | 1.5, 21, ORAL) | | | | | | + + + +---------+ + + | omeprazole | Take 20 mg by mouth | | 0 | | | | (PRILOSEC) 20 mg | two times daily. | | | | | | Oral capsule,delayed | | | | | | | release(DR/EC) | | | | | | + + + +---------+ + + | ondansetron | Take 4 mg by mouth | | 0 | | | | (ZOFRAN) 4 mg Oral | every twelve hours | | | | | | tablet | as needed. | | | | | + + + +---------+ + + documented as of this encounter Plan of Treatment Not on filedocumented as of this encounter Procedures + +--------+ + + + | Procedure Name | Priori | Date/Time | Associated Diagnosis | Comments | | | ty | | | | + +--------+ + + + | X-RAY HAND 1 VIEWS | Routin | 02/04/2013 | Psoriatic | Results for this | | BILATERAL | e | 3:57 PM | arthritis (HCC) | procedure are in the | | | | PDT | | results section. | + +--------+ + + + documented in this encounter Results X-RAY HAND 1 VIEWS BILATERAL (02/04/2013 3:57 PM PDT) + + + + + + | Component | Value | Ref Range | Performed | Pathologist | | | | | At | Signature | + + + + + + | HAND 1 | EXAM: HAND 1 VIEW | | | | | VIEWS | BILATERAL 02/04/13 | | | | | BILATERAL | 15:57:00 HISTORY: | | | | | | Concern for psoriatic | | | | | | arthritis COMPARISON: | | | | | | None. FINDINGS: Right | | | | | | hand: There is no | | | | | | fracture or destructive | | | | | | osseous lesion. The | | | | | | jointspaces are | | | | | | normal. There is no | | | | | | erosion, enthesitis, or | | | | | | periostitis. Alignmen | | | | | | tis normal. There's | | | | | | no soft tissue | | | | | | abnormality. Left | | | | | | hand:There is no | | | | | | fracture or destructive | | | | | | osseous lesion. The | | | | | | joint spacesare | | | | | | normal. There is no | | | | | | erosion, enthesitis, or | | | | | | periostitis. Alignmen | | | | | | t isnormal. There's | | | | | | no soft tissue | | | | | | abnormality. IMPRESSION: | | | | | | Normal hands, no | | | | | | erosions, periostitis or | | | | | | enthesitis. Attending | | | | | | Radiologists: NOEMI | | | | | | MADELEINE MDAuthor: | | | | | | ELÍAS NAVARRO MD I | | | | | | have personally viewed | | | | | | this procedure/exam, | | | | | | reviewed this report, | | | | | | and madechanges to it | | | | | | where appropriate. | | | | | | Final/Electronically | | | | | | signed / NOEMI | | | | | | MADELEINE Pending | | | | | | final approval / | | | | | | ELÍAS NAVARRO | | | | | | 02/04/2013 17:00 PM | | | | + + + + + + + + | Specimen | + + | | + + + +---------+ + + | Performing | Address | City/State/Zipcode | Phone Number | | Organization | | | | + +---------+ + + | [facility] DEPARTMENT OF | | | | | RADIOLOGY | | | | + +---------+ + + documented in this encounter Visit Diagnoses + + | Diagnosis | + + | Psoriatic arthritis (HCC) Psoriatic arthropathy | + + documented in this encounter"
--- OUTSIDE RECORDS SUMMARY | ~2019-01-12 | XMS | Encounter Summary ---
Demographics + + + | Address | [address] | | | [place] [address] | + + + | Home Phone | | + + + | Preferred Language | Unknown | + + + | Marital Status | | + + + | Latter Day Affiliation | PRO | + + + | Race | or | + + + | Ethnic Group | Not or | + + + Author + + + | Author | [facility] [employer] [facility] | + + + | Organization | [facility] | + + + | Address | Unknown | + + + | Phone | Unavailable | + + + Support + + + + + | Name | Relationship | Address | Phone | + + + + + | Conrad | ECON | [address] | | | [place] | | [place] | | | | | [address] | | + + + + + Care Team Providers + +------+ + | Care Supervisor Welding Equipment Repairer Name | Role | Phone | + +------+ + | Omari Shabazz | PCP | | + +------+ + Reason for Referral Consultation (Urgent) +--------+--------+ + + + + | Status | Reason | Specialty | Diagnoses / | Referred By | Referred To | | | | | Procedures | Contact | Contact | +--------+--------+ + + + + | Closed | | Dermatology | Diagnoses | Jericho Vargas, | Ehst, | | | | | Psoriatic | MD Chula | Hemanth Rangel, | | | | | arthritis | [address] | ,PhD Barrera | | | | | ([facility]) | [address] | Allergy | | | | | Procedures | Rd | Asthma | | | | | CONSULT TO | [place], [place] | Dermatology | | | | | DERM & DERM | [address] | [address] | | | | | SURGERY | Phone: | [address] | | | | | | [phone] | [address] | | | | | | Fax: | [place], [place] | | | | | | [phone] | [address] Phone: | | | | | | | [phone] | | | | | | | Fax: | | | | | | | [phone] | +--------+--------+ + + + + Consultation (Routine) +--------+--------+ + + + + | Status | Reason | Specialty | Diagnoses / | Referred By | Referred To | | | | | Procedures | Contact | Contact | +--------+--------+ + + + + | Closed | | Neurology | Diagnoses | Jericho Vargas, | Pura, | | | | | Carnitine | MD Chula | Jonna Rizzo MD | | | | | palmitoyltra | [address] | [address] | | | | | nsferase II | [address] | Ave | | | | | deficiency | Rd | [place], [place] | | | | | ([facility]) | [place], [place] | [address] | | | | | Rhabdomyolys | [address] | | | | | | is | Phone: | | | | | | Procedures | [phone] | | | | | | CONSULT TO | Fax: | | | | | | NEUROMUSCULA | [phone] | | | | | | R | | | +--------+--------+ + + + + Reason for Visit Consultation (Routine) +--------+--------+ + + + + | Status | Reason | Specialty | Diagnoses / | Referred By | Referred To | | | | | Procedures | Contact | Contact | +--------+--------+ + + + + | Closed | | Rheumatology | Diagnoses | [facility] | [facility] | | | | | Psoriatic | Epic Dept | [address] | | | | | arthropathy | | [address] | | | | | ([facility]) | | Jennifer Champion | | | | | | | Mailcode: | | | | | | | OP09 | | | | | | | Physician's | | | | | | | [address], [address] | | | | | | | Floor | | | | | | | [place], [place] | | | | | | | [address] | | | | | | | Phone: | | | | | | | [phone] | | | | | | | Fax: | | | | | | | [phone] | +--------+--------+ + + + + Encounter Details +--------+---------+ + + + | Date | Type | Department | Care Team | Description | +--------+---------+ + + + | 02/04/ | Office | Rheumatology at | Chula Ayala, | Carnitine | | 2012 | Visit | Physicians Cathy | [address] | palmitoyltransferase | | | | [address] | [address] | II deficiency (HCC) | | | | Jennifer Champion Mailcode: | [place] [address] | (Primary Dx); | | | | [address]09 Physician's | [phone] | Psoriatic arthritis | | | | [address] | | (HCC); Chronic pain | | | | [place], [place] | | disorder; Psoriasis | | | | [address] | | | | | | [phone] | | | +--------+---------+ + + + Social History + +-------+ [...] + + documented as of this encounter Last Filed Vital Signs + + + + + | Vital Sign | Reading | Time Taken | Comments | + + + + + | Blood Pressure | 102/68 | 02/04/2013 2:12 PM | | | | | PDT | | + + + + + | Pulse | 74 | 02/04/2013 2:12 PM | | | | | PDT | | + + + + + | Temperature | - | - | | + + + + + | Respiratory Rate | - | - | | + + + + + | Oxygen Saturation | - | - | | + + + + + | Inhaled Oxygen | - | - | | | Concentration | | | | + + + + + | Weight | 69.4 kg (153 lb) | 02/04/2013 2:12 PM | | | | | PDT | | + + + + + | Height | 160 cm (5' 3") | 02/04/2013 2:12 PM | | | | | PDT | | + + + + + | Body Mass Index | 27.1 | 02/04/2013 2:12 PM | | | | | PDT | | + + + + + documented in this encounter Progress Notes Chula Vargas MD - 02/04/2013 12:20 PM PDT Rheumatology New Patient Consult This consultation was requested by Omari Shabazz [facility] [address] [place] [phone] Date:02/04/2013 Maris Chi -1970 [facility] ID: Maris Chi is a 42 y.o. female referred here for management of PsA. 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 HPI: For PsO and PsA she Was seeing hi lo driver in [place]. Dr Chuck Glover. PsO started at ag e 25 secondary to a stress. Over extremities and trunk. Tried laser, MTX, topicals, clobex e tc. Breaks in between for six pregnancies. Then enbrel worked for 2 yrs and then stopped wor monserrat and humira was started about 3 yrs. Then moved to [facility] 2 yrs ago who has been refi lling humira for past 2 yrs. Was hard to get referred. Per pt in the past 6 mths humira has not been working either. So she stopped it 2 mths ago. Joint pain started about 8 yrs ago. First noticed couldn't turn the car keys. Has had dacty litis of bilateral middle fingers. They are ok now. Today none of the joints are painful. Ne froy had back back pain. Has had dip swelling. No tendonitis. Review of Systems: positive as above and those in bold below: General: fevers, fatigue, weight loss or drenching night sweats. Skin: Unusual Hair loss, malar rash, other rash, Raynauds. Eyes: visual loss, diplopia, photosensitivity, Significant dry eyes/ gritty eyes/ need for use of eye drops; painful red eye Oral: significant dry mouth; oral sores ENT: recurrent sinususitis, difficulty swallowing or getting stuck in chest, or GERD. Neurologic: Migraine headaches, unilateral persistent numbness, tingling, Wrist drop or f oot drops, recurrent strokes. Has lately noticed name finding ability and memory issues whic h are mild. Respiratory: unusual shortness of breath, coughing up blood, excessive sputum, cough, pleur itic chest pain or wheezing. Cardiovascular: Anginal chest pain, orthopnea, or edema. Gastrointestinal: loss of appetite, vomiting, nausea, abdominal pain, diarrhea, bloody sto ols or dark tarry stools. Genitourinary: urinary frequency, blood in urine, bubbly/ frothy urine/ discharge, painful urination or genital sores. Psychological: abnormal anxiety, depression, thoughts of suicide or hallucinations. Heme/Lymphatic: enlarged lymph nodes. hx of blood clots/ losses (in females). Current Medication List Name Sig HYDROMORPHONE 2 MG TABLET Take 2 mg by mouth twice daily as needed. MORPHINE ER 15 MG TABLET,EXTENDED RELEASE Take 15 mg by mouth every twelve hours. (21) ORAL Take by mouth once daily. OMEPRAZOLE 20 MG CAPSULE,DELAYED RELEASE Take 20 mg by mouth two times daily. ONDANSETRON HCL 4 MG TABLET Take 4 mg by mouth every twelve hours as needed. Problems/ PMH Patient Active Problem List Diagnosis Carnitine palmitoyltransferase II deficiency Psoriatic arthritis Chronic pain disorder Has a bicuspid aortic valve with a slight murmur. 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 Asx Neuromuscular consult note from dr Arnulfo Driscoll: saw her for CPT TII def. Hx of recurrent rhabdo since age 39. EMG neg. At most, minor motor unit changes. No memb instability. 08/24. CK nml. K 3.2. Urine neg myoglobin. Considered CPT 2 def, but planned to obtain more labs, review muscle biopsy to confirm dx. Dr miguel notes: 08/[address] Monae at [facility]. They concurred that CPT 2 def seemed less likely because it was only a partial deficiency or carrier status, further s upported by normal CPT/ citrate synthase ratio. The comprehensive panel on the muscle biopsy was not done to r/o other metabolic myopathies/ mitochondrial diseases. They wanted her to be seen by Dr Donn Ramirez however her [facility] doesn't refer to Dr Ramirez hence she needs a referral to [facility] Neuromuscular clinic. 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 In 2007 one morning was wobbly and had myalgias which worsened, couldn't walk at all, CK was about [address]. Since then has had recurrent rhabdomyoly sis related to exercises. PSH: uretera blockage sx at age 7 FH: no FH of PsA, S: MS, RA SH: on OCPs. But may have endometriosis. Want to start on Lupron and will have to stop OCP but will start another contraception. Examination BP 102/68 | Pulse 74 | Ht 1.6 m (5' 3") | Wt 69.4 kg (153 lb) | BMI 27.11 kg/(m^2) Last 3 Rapid 3 MHAQ: 3.0 (02/04/13 1400) PAIN LEVEL: 5 (02/04/13 1400) GLOBAL ASSESSMENT: 5 (02/04/13 1400) RAPID 3: 4.33 (02/04/13 1400) Gen: NAD. HEENT: EOMI, no facial rash, no conjunctival erythema. No lymphadenopathy. Lungs: clear to ausculation bilaterally. CVS: S1S2, RRR, no murmurs. Abd: soft, NT. Ext: no edema. Neuro: Grossly Nonfocal Skin: several psoriatic patches over extremities, trunk and dale, forehead Nails: psoriatic nail dystrophy Joints: no synovitis. Right middle pip slightly bigger than left. No dactylitis. All jts FR OM today. No effusions. No enthesitis Data 07/25 Cbc nml HCV Ab neg HBc Ab neg HBs Ag neg HBs Ab indeterminate RPR neg HIV neg TFT nml CMP nml UA neg CBC with diff last 72 hours (or 3 results) Recent Labs 02/04/13 1539 WBC 9.55 HB 13.4 HCT 39.9 PLT 318 NEUTROPERC 72.0* LYMPHPERC 19.8 MONOPERC 5.5 BASOPERC 0.4 EOSPERC 2.0 Lab Results Component Value Date NA 142 02/04/2013 K 3.4 02/04/2013 CL 106 02/04/2013 BICARB 26 02/04/2013 BUN 11 02/04/2013 CR 0.70 02/04/2013 GLU 100 02/04/2013 CA 8.2 02/04/2013 AST 11 02/04/2013 ALT 19 02/04/2013 AP 85 02/04/2013 TBILI 0.4 02/04/2013 TP 7.8 02/04/2013 ALB 3.5 02/04/2013 Lab Results Component Value Date ESR 18 02/04/2013 HAND 1 VIEWS BILATERAL (no units) Date Value Range Status 02/04/2013 Preliminary Value: EXAM: HAND 1 VIEW BILATERAL 02/04/13 15:57:00 HISTORY: Concern for psoriatic arthritis COMPARISON: None. FINDINGS: Right hand: There is no fracture or destructive osseous lesion. The joint spaces are normal. There is no erosion, enthesitis, or periostitis. Alignment is normal. There's no soft tissue abnormality. Left hand:There is no fracture or destructive osseous lesion. The joint spaces are normal. There is no erosion, enthesitis, or periostitis. Alignment is normal. There's no soft tissue abnormality. IMPRESSION: Normal hands, no erosions, periostitis or enthesitis. Attending Radiologists: NOEMI SALVADOR MD Author: ELÍAS NAVARRO MD Impression: 42 y.o. female with Psoriasis (PsO) and history characteristic for Psoriatic a rthritis (PsA). Today not much arthritis activity. Given skin disease however she will need aggressive management. Loss of efficacy to anti-TNF agents suggest that she may need alterna tive biologic agents such as Ustekinumab. This will need to initiated by dermatology since s telara is not approved for PsA and for PsA she doesn't need aggressive medications. In the m neeta time will start MTX - which can be stopped if needed based ond erm opinion however combi nation therapy may be beneficial for skin disease as well. She has undiagnosed metabolic myopathy with recurrent rhabdomyolysis. She has had a msucle biopsy however the results were apparently not c/w CPT 2 def since she has only a partial de ficiency. Will seek neuromuscular opinion at [facility] to clarify this issues with [facility] and arrange more tests to be done on muscle biopsy tissue as needed. 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 Detailed discussion held re this d iagnosis and recommendations as below to be worked in with PCP. She seemed afraid of medicat ions with affect on mood however I think she has severe pain and a neuropathic pain medicati on may have a positive benefit - risk ratio in her case. Plan- 1. Carnitine palmitoyltransferase II deficiency CK, PLASMA, ALDOLASE, SERUM, CONSULT TO NE UROMUSCULAR 2. Psoriatic arthritis CBC, WITH DIFFERENTIAL, SEDIMENTATION RATE, C-REACT PRTN (FOR INFLA MMATION), COMPLETE METABOLIC SET (NA,K,CL,CO2,BUN,CREAT,GLUC,CA,AST,ALT,BILI TOTAL,ALK PHOS, ALB,PROT TOTAL), HEPATITIS C AB W/CONFIRMATION REFLEX PCR, HEPATITIS B SURFACE AG, SERUM, HI V-1,2 AB/HIV-1 P24 AG SCRN, SERUM, COMPLETE METABOLIC SET (NA,K,CL,CO2,BUN,CREAT,GLUC,CA,AST ,ALT,BILI TOTAL,ALK PHOS,ALB,PROT TOTAL), CBC ONLY, X-RAY HAND 1 VIEWS BILATERAL, CONSULT TO DERM & DERM SURGERY 3. Chronic pain disorder Refer back to PCP with following recommendations. Fibromyalgia/ C entral Pain Sensitization: I encouraged her to follow up with her PCP to institute these the rapy. Would recommend at leat 20 mins of light aerobic exercise every day such as Edgar Chi (which was studied in a recent RCT, [facility] November 2009), walking, yoga, pilates, swimming, water aero bics, biking. Referral to physical therapy for functional improvement and pain management. Referral to clinical psychologist for cognitive behavioral therapy as this is effective for many patients with fibromyalgia. Referral to sleep clinic for sleep hygiene, sleep study to rule out sleep apnea and restles leg syndrome. Another modality to consider at some point is trigger point injections of the FM tender poi nts with a local anesthetic agent such as lidocaine or procaine. Drug therapy - Medication classes that may be helpful include low dose tricyclic antidepres sants (desipramine may be a good choice to start with since it generally has fewer anticholi nergic side effects than other agents), anticonvulsants (including pregabalin, gabapentin), SSRIs (including fluoxetine, paroxetine), dual uptake inhibitors (including duloxetine, miln acipram). Tramadol, acetaminophen, and cyclobenzaprine are other medications that may be hel pful. Combination therapy is also sometimes effective. Opiates and NSAIDs are usually not ef fective. Education: Information provided to patient. Website www.myalgia.com may be helpful. 4. Psoriasis Consult derm ; consider stelara. Start MTX. Will initiate methotrexate 15 mg every week for 1 month and if labs are stable ( CBC and CMP), recommend increasing 20 mg every week. While on methotrexate, will limit side effects with daily folic acid 1 mg daily. Educated patient on potential side effects includi ng GI upset, gastritis, oral ulcers, alopecia, cough/pneumonitis, increased risk of infectio ns, risk of liver function abnormalities, anemia or leukopenia leading to life threatening infections and ; as well as teratogenicity and need for effective contraception and rodrigo idance of alcohol intake. In case of any concerning symptoms, patient should hold the medica tion and seek medical attention. Patient will need q2m cbc and cmp lab monitoring for toxici ty while on this medication, this schedule is provided to the patient. Obtain tuberculin skin test - request PCP to arrange this locally and fax us a copy. Follow up in 3 mths I spent 60 minutes [id number] with the patient with over 50% in counseling the patient re garding her disease. Chula Vargas MD Instructor, Division of Arthritis and Rheumatic Diseases Pager- [phone] Mail Code [phone] [place] [address] documented in this encount er Plan of Treatment Not on filedocumented as of this encounter Results X-RAY HAND 1 VIEWS [...] NOEMI | | | | | | GILBERT SALVADORuthor: | | | | | | ELÍAS [...] | | + +---------+ + + | [facility] | | | | | RADIOLOGY | | | | + +---------+ + + ALDOLASE, SERUM (02/04/2013 3:39 PM PDT) + + + + + + | Component | Value | Ref Range | Performed | Pathologist | | | | | At | Signature | + + + + + + | ALDOLASE | 4.9Comment: REFERENCE | 1.5 - 8.1 U/L | [facility] | | | SERUM | INTERVAL: Aldolase | | REG UNIV | | | | Access complete set of | | PTH - [facility]FC | | | | age- and/or | | | | | | gender-specificreference | | | | | | intervals for this test | | | | | | in the [facility] | | | | | | LaboratoryTest Directory | | | | | | ([facility]).Performed | | | | | | by [facility] | | | | | | Laboratories,[address] | | | | | | [place] [address] | | | | | | [phone] | | | | | | [facility], Nadir Sung, | | | | | | MD Lab. Director | | | | + + + + + + + + | Specimen | + + | Blood - Blood | + + + + + + + | Performing | Address | City/State/Zipcode | Phone Number | | Organization | | | | + + + + + | [facility] | [address] | [place], [place] | | | UNIV PTH - [facility] | | [address] | | + + + + + CK, PLASMA (02/04/2013 3:39 PM PDT) + +-------+ + + + | Component | Value | Ref Range | Performed | Pathologist | | | | | At | Signature | + +-------+ + + + | CK | 96 | 38 - 234 U/L | [facility] | | | | | | LABORATORY | | | | | | SERVICES, | | | | | | CORE | | + +-------+ + + + + + | Specimen | + + | Blood - Blood | + + + + + + + | Performing | Address | City/State/Zipcode | Phone Number | | Organization | | | | + + + + + | [facility] | [address] | [place] [address] | | | SERVICES, CORE | [address] | | | + + + + + HIV-1,2 AB/HIV-1 P24 AG SCRN, SERUM (02/04/2013 3:39 PM PDT) + + + + + + | Component | Value | Ref Range | Performed | Pathologist | | | | | At | Signature | + + + + + + | HIV-1,2 | Nonreactive | Nonreactive | [facility] | | | AB/HIV-1 | | | LABORATORY | | | P24 AG | | | SERVICES, | | | SCREEN | | | SPECIAL IMM | | | | | | + COAG | | + + + + + + + + | Specimen | + + | Blood - Blood | + + + + + | Narrative | Performed At | + + + | HIV-1 p24 Ag and HIV-1,2 Ab not detected. | [facility] | | | LABORATORY | | | SERVICES, | | | SPECIAL IMM + | | | COAG | + + + + + + + + | Performing | Address | City/State/Zipcode | Phone Number | | Organization | | | | + + + + + | [facility] | [address] | [place] [address] | | | SERVICES, SPECIAL | [address] | | | | IMM + COAG | | | | + + + + + HEPATITIS B SURFACE AG, SERUM (02/04/2013 3:39 PM PDT) + + + + + + | Component | Value | Ref Range | Performed | Pathologist | | | | | At | Signature | + + + + + + | HEPATITIS B | Negative | Negative | [facility] - | | | SURFACE | | | [facility] - | | | AG, SERUM | | | [place] | | + + + + + + + + | Specimen | + + | Blood - Blood | + + + + + + + | Performing | Address | City/State/Zipcode | Phone Number | | Organization | | | | + + + + + | [facility] | [address] | [place] [address] | | | [place] | | | | + + + + + HEPATITIS C AB W/CONFIRMATION REFLEX PCR (02/04/2013 3:39 PM PDT) + + + + + + | Component | Value | Ref Range | Performed | Pathologist | | | | | At | Signature | + + + + + + | HEPATITIS C | Negative | Negative | [facility] - | | | AB | | | [facility] - | | | | | | [place] | | + + + + + + + + | Specimen | + + | Blood - Blood | + + + + + + + | Performing | Address | City/State/Zipcode | Phone Number | | Organization | | | | + + + + + | [facility] | [address] | [place] [address] | | | [place] | | | | + + + + + COMPLETE METABOLIC SET (NA,K,CL,CO2,BUN,CREAT,GLUC,CA,AST,ALT,BILI TOTAL,ALK PHOS,ALB,PROT TOTAL) (02/04/2013 3:39 PM PDT) + +---------+ + + + | Component | Value | Ref Range | Performed | Pathologist | | | | | At | Signature | + +---------+ + + + | GLUCOSE, | 100 (H) | 60 - 99 mg/dL | [facility] | | | PLASMA | | | LABORATORY | | | (LAB) | | | SERVICES, | | | | | | CORE | | + +---------+ + + + | BUN, PLASMA | 11 | 6 - 20 mg/dL | [facility] | | | (LAB) | | | LABORATORY | | | | | | SERVICES, | | | | | | CORE | | + +---------+ + + + | CREATININE | 0.70 | 0.60 - 1.10 | [facility] | | | PLASMA | | mg/dL | LABORATORY | | | (LAB) | | | SERVICES, | | | | | | CORE | | + +---------+ + + + | EGFR | >60 | >60 mL/min | [facility] | | | - | | | LABORATORY | | | BRAZILIAN | | | SERVICES, | | | | | | CORE | | + +---------+ + + + | EGFR NON | >60 | >60 mL/min | [facility] | | | -CHRIS | | | LABORATORY | | | RICAN | | | SERVICES, | | | | | | CORE | | + +---------+ + + + | SODIUM, | 142 | 136 - 145 | [facility] | | | PLASMA | | mmol/L | LABORATORY | | | (LAB) | | | SERVICES, | | | | | | CORE | | + +---------+ + + + | POTASSIUM, | 3.4 | 3.4 - 5.0 | [facility] | | | PLASMA | | mmol/L | LABORATORY | | | (LAB) | | | SERVICES, | | | | | | CORE | | + +---------+ + + + | CHLORIDE, | 106 | 97 - 108 mmol/L | [facility] | | | PLASMA | | | LABORATORY | | | (LAB) | | | SERVICES, | | | | | | CORE | | + +---------+ + + + | TOTAL CO2, | 26 | 21 - 32 mmol/L | [facility] | | | PLASMA | | | LABORATORY | | | (LAB) | | | SERVICES, | | | | | | CORE | | + +---------+ + + + | CALCIUM, | 8.2 (L) | 8.6 - 10.2 | [facility] | | | PLASMA | | mg/dL | LABORATORY | | | (LAB) | | | SERVICES, | | | | | | CORE | | + +---------+ + + + | BILIRUBIN | 0.4 | 0.3 - 1.2 mg/dL | [facility] | | | TOTAL | | | LABORATORY | | | | | | SERVICES, | | | | | | CORE | | + +---------+ + + + | TOTAL | 7.8 | 6.4 - 8.2 g/dL | [facility] | | | PROTEIN, | | | LABORATORY | | | PLASMA | | | SERVICES, | | | (LAB) | | | CORE | | + +---------+ + + + | ALBUMIN, | 3.5 | 3.5 - 4.7 g/dL | [facility] | | | PLASMA | | | LABORATORY | | | (LAB) | | | SERVICES, | | | | | | CORE | | + +---------+ + + + | ALK PHOS | 85 | 42 - 98 U/L | [facility] | | | | | | LABORATORY | | | | | | SERVICES, | | | | | | CORE | | + +---------+ + + + | AST(SGOT) | 11 (L) | 15 - 41 U/L | [facility] | | | | | | LABORATORY | | | | | | SERVICES, | | | | | | CORE | | + +---------+ + + + | ALT (SGPT) | 19 | 12 - 60 U/L | [facility] | | | | | | LABORATORY | | | | | | SERVICES, | | | | | | CORE | | + +---------+ + + + | ANION | 11 | 4 - 11 mmol/L | [facility] | | | GAP(ALB | | | LABORATORY | | | CORRECTED) | | | SERVICES, | | | | | | CORE | | + +---------+ + + + | POTASSIUM | No Hemo | | [facility] | | | CMNT | | | LABORATORY | | | | | | SERVICES, | | | | | | CORE | | + +---------+ + + + | BILI T CMNT | No Hemo | | [facility] | | | | | | LABORATORY | | | | | | SERVICES, | | | | | | CORE | | + +---------+ + + + | AST CMNT | No Hemo | | [facility] | | | | | | LABORATORY | | | | | | SERVICES, | | | | | | CORE | | + +---------+ + + + | ANION GAP | 10 | mmol/L | [facility] | | | | | | LABORATORY | | | | | | SERVICES, | | | | | | CORE | | + +---------+ + + + + + | Specimen | + + | Blood - Blood | + + + + + | Narrative | Performed At | + + + | GFR is estimated using the MDRD equation recommended by the | [facility] | | National Kidney Disease Education Program. Estimated GFR | LABORATORY | | Interpretive Information: <60 mL/min/1.73 sq | SERVICES, CORE | | m Chronic Kidney Disease <15 mL/min/1.73 | | | sq m Kidney Failure Estimated GFR greater | | | that 60 mL/min/1.73 sq m is of limited clinical value. The MDRD | | | equation is not valid in the following situations: - Patients under | | | 18 years of age - Severe malnutrition or obesity - Vegetarian diet | | | - Rapidly changing kidney function New reference range effective | | | 07/28/2012 for Total proteins performed in Core Lab only. | | + + + + + + + + | Performing | Address | City/State/Zipcode | Phone Number | | Organization | | | | + + + + + | [facility] | [address] | [place] [address] | | | SERVICES, CORE | [address] | | | + + + + + C-REACT PRTN (FOR INFLAMMATION) (02/04/2013 3:39 PM PDT) + +---------+ + + + | Component | Value | Ref Range | Performed | Pathologist | | | | | At | Signature | + +---------+ + + + | C-REACTIVE | 2.0 (H) | <=0.8 mg/dL | [facility] - | | | PROTEIN | | | AIRPORT - | | | | | | [place] | | + +---------+ + + + + + | Specimen | + + | Blood - Blood | + + + + + + + | Performing | Address | City/State/Zipcode | Phone Number | | Organization | | | | + + + + + | [facility] - | [address] | [place] [address] | | | [place] | | | | + + + + + SEDIMENTATION RATE (02/04/2013 3:39 PM PDT) + +-------+ + + + | Component | Value | Ref Range | Performed | Pathologist | | | | | At | Signature | + +-------+ + + + | SEDIMENT[facility]I | 18 | 0 - 20 mm/hr | [facility] | | | ON RATE | | | LABORATORY | | | | | | SERVICES, | | | | | | CORE | | + +-------+ + + + + + | Specimen | + + | Blood - Blood | + + + + + + + | Performing | Address | City/State/Zipcode | Phone Number | | Organization | | | | + + + + + | JOSE OJEDA | [address] | [place] [address] | | | ANDREW CONNELL | [address] | | | + + + + + documented in this encounter Visit Diagnoses + + | Diagnosis | + + | 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
--- OUTSIDE RECORDS SUMMARY | ~2019-01-12 | XMS | Encounter Summary ---
Demographics + + + | Address | [address] | | | [place] [address] | + + + | Home Phone | | + + + | Preferred Language | Unknown | + + + | Marital Status | | + + + | Orthodoxy Affiliation | PRO | + + + | Race | or | + + + | Ethnic Group | Not or | + + + Author + + + | Author | [facility] | + + + | Organization | [facility] [facility] | + + + | Address | Unknown | + + + | Phone | Unavailable | + + + Support + + + + + | Name | Relationship | Address | Phone | + + + + + | Conrad | ECON | [address] | | | Loraine | | [place] | | | | | [address] | | + + + + + Care Team Providers + +------+ + | Care Physician Office Nurse Name | Role | Phone | + +------+ + | Omari Shabazz | PCP | | + +------+ + Encounter Details +--------+ + + + + | Date | Type | Department | Care Team | Description | +--------+ + + + + | 08/04/ | Abstract | Neurology at | Clinic, Neurology | | | 2013 | | [facility] & | | | | | | Healing [address] | | | | | | Gamino Willa Mailcode: | | | | | | [facility] [facility] | | | | | | Health and Healing, | | | | | | [facility] | | | | | | [place], [place] | | | | | | [address] | | | | | | [phone] | | | +--------+ + + + [...]
--- OUTSIDE RECORDS SUMMARY | ~2019-01-12 | XMS | Encounter Summary ---
Demographics + + + | Address | [address] | | | [place] [address] | + + + | Home Phone | | + + + | Preferred Language | Unknown | + + + | Marital Status | | + + + | Yazdanism Affiliation | PRO | + + + | Race | or | + + + | Ethnic Group | Not or | + + + Author + + + | Author | [facility] | + + + | Organization | [facility] | + + + | Address | Unknown | + + + | Phone | Unavailable | + + + Support + + + + + | Name | Relationship | Address | Phone | + + + + + | Conrad | ECON | [address] | | | Loraine | | [place] | | | | | [address] | | + + + + + Care Team Providers + +------+ + | Care Teletypesetter Monitor Name | Role | Phone | + +------+ + | Omari Shabazz | PCP | | + +------+ + Reason for Visit +--------+ + | Reason | Comments | +--------+ + | Other | [facility] | +--------+ + Encounter Details +--------+ + + + + | Date | Type | Department | Care Team | Description | +--------+ + + + + | 11/08/ | Abstract | Neurology at | Unknown . | Other | | 2017 | | [facility] & | | ([facility]) | | | | Healing [facility] | | | | | | Stevenson Crouch Mailcode: | | | | | | [facility] [facility] | | | | | | Health and Healing, | | | | | | Building | | | | | | Floor [place], [place] | | | | | | [address] | | | | | | [phone] | | | +--------+ + + + [...]
--- OUTSIDE RECORDS SUMMARY | ~2019-01-12 | XMS | Encounter Summary ---
Demographics + + + | Address | [address] | | | [place] [address] | + + + | Home Phone | | + + + | Preferred Language | Unknown | + + + | Marital Status | | + + + | Restoration Affiliation | PRO | + + + | Race | or | + + + | Ethnic Group | Not or | + + + Author + + + | Author | [facility] | + + + | Organization | [facility] | + + + | Address | Unknown | + + + | Phone | Unavailable | + + + Support + + + + + | Name | Relationship | Address | Phone | + + + + + | Conrad | ECON | [address] | | | Loraine | | [place] | | | | | [address] | | + + + + + Care Team Providers + +------+ + | Care Construction Project Assistant Name | Role | Phone | [...] ,PhD Barrera | | | | | ([facility]) | [address] | Allergy | | | | | Procedures | Rd | Asthma | | | | | CONSULT TO | [place], [place] | Dermatology | | | | | DERM & DERM | [address] | [address] | | | | | SURGERY | Phone: | [address] | | | | | | [phone] | [address] | | | | | | Fax: | [place], [place] | | | | | | [phone] | [address] Phone: | | | | | | | [phone] | | | | | | | Fax: | | | | | | | [phone] | +--------+--------+ + + + + Consultation [...] | | | deficiency | Rd | [place], [place] | | | | | ([facility]) | [place] | [address] | | | | | Rhabdomyolys | [address] | | | | | | is | Phone: | | | | | | Procedures | [phone] | | | | | | CONSULT TO | Fax: | | | | | | NEUROMUSCULA | [phone] | | | | | | R [...] [address] Simms | | | | | ([facility]) | | Jennifer Champion | | | | | | | Mailcode: | | | | | | | OP09 | | | | | | | Physician's | | | | | | | Cathy, [address]th | | | | | | | Floor | | | | | | | [place], [place] | | | | | | | [address] | | | | | | | Phone: | | | | | | | [phone] | | | | | | | Fax: | | | | | | | [phone] | +--------+--------+ + + + + Encounter Details +--------+---------+ + + + | Date | Type | Department | Care Team | Description | +--------+---------+ + + + | 02/04/ | Office | Rheumatology at | Chula Ayala, | Carnitine | | 2012 | Visit | Physicians Cathy | [address] | palmitoyltransferase | | | | [address] | [address] | II deficiency (HCC) | | | | Jennifer Champion Mailcode: | [place] [address] | (Primary Dx); | | | | [address] Physician's | [phone] | Psoriatic arthritis | | | | Cathy, [address]th Floor | | (HCC); Chronic pain | | | | [place], [place] | | disorder; Psoriasis | | | | [address] | | | | | | [phone] | | | +--------+---------+ + + + [...] This consultation was requested by Omari Shabazz [facility] [address] [place] [phone] Date:02/04/2013 Maris Chi -1970 [facility] ID: Maris Chi is a 42 y.o. female referred here for management of PsA. 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 HPI: For PsO and PsA she Was seeing import specialist in [place]. Dr Chuck Glover. PsO started at ag e 25 secondary to a stress. Over extremities and trunk. Tried laser, MTX, topicals, clobex e tc. Breaks in between for six pregnancies. Then enbrel worked for 2 yrs and then stopped wor monserrat and humira was started about 3 yrs. Then moved to [facility] 2 yrs ago who has been refi [...] valve with a slight murmur. Follows a team leader/research psychologist. Asx Neuromuscular consult note from dr Arnulfo [...] 08/[address] Monae at [facility]. They concurred that CPT 2 def seemed less likely because it was only a partial deficiency or carrier status, further s upported by normal CPT/ citrate synthase ratio. The comprehensive panel on the muscle biopsy was not done to r/o other metabolic myopathies/ mitochondrial diseases. They wanted her to be seen by Dr Donn Ramirez however her [facility] doesn't refer to Dr Ramirez hence she needs a referral to [facility] Neuromuscular clinic. 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 In 2007 one morning was wobbly and had myalgias which worsened, couldn't walk at all, [place] [address]. Since then has had recurrent rhabdomyoly sis [...] de ficiency. Will seek neuromuscular opinion at [facility] to clarify this issues with Univ of [...] in 3 mths I spent 60 minutes ijga-pt-mbxc with the patient with over 50% in counseling the patient re garding her disease. Chula Vargas MD Instructor, Division of Arthritis and Rheumatic Diseases Pager- [phone] Mail Code OP-[id number] [address] [place] [address] documented in this encount er Plan of [...] | | | | | in the [employer] | | | | | | LaboratoryTest Directory | | | | | | ([facility]).Performed | | | | | | by [facility] | | | | | | Laboratories,[address] | | | | | | [place] [address] | | | | | | [phone]. | | | | | | [facility], Nadir Sung, | | | | | [...] [facility] | [address] | [place], [place] | | | UNIV PTH - INTFC | | [address] | | + + + + + [...] LABORATORY | [address] | [place] [address] | | | SERVICES, CORE | PARK [...] | + + + + + | [facility] | [address] | [place] [address] | | | SERVICES, SPECIAL | PARK [...] + | [facility] - | [address] | [place] [address] | | | [place] | | | [...] + | [facility] - | [address] | [place] [address] | | | [place] | | | | + + + [...] | | | LABORATORY | | | SLOVENIAN | | | SERVICES, | | | [...] | + + + + + | [facility] | [address] | [place] [address] | | | SERVICES, CORE | PARK [...] + | [facility] - | [address] | [place] [address] | | | [place] | | | [...] JOSE OJEDA | [address] | [place] [address] | | | ANDREW CONNELL | JENNIFER [...]
--- OUTSIDE RECORDS SUMMARY | ~2019-01-12 | XMS | Encounter Summary ---
Demographics + + + | Address | [address] | | | [place] [address] | + + + | Home Phone | | + + + | Preferred Language | Unknown | + + + | Marital Status | | + + + | Mormon Affiliation | PRO | + + + | Race | or | + + + | Ethnic Group | Not or | + + + Author + + + | Author | [facility] | + + + | Organization | [facility] | + + + | Address | Unknown | + + + | Phone | Unavailable | + + + Support + + + + + | Name | Relationship | Address | Phone | + + + + + | Conrad | ECON | [address] | | | Loraine | | [place] | | | | | [address] | | + + + + + Care Team Providers + +------+ + | Care Special Delivery Clerk Name | Role | Phone | + +------+ + | Omari Shabazz | PCP | | + +------+ + Encounter Details +--------+ + + + + | Date | Type | Department | Care Team | Description | +--------+ + + + + | 07/06/ | Document-Sc | UNKNOWN DEPARTMENT | Unknown . | | | 2014 | anned | [address] | | | | | | [address] | | | | | | [place], [place] | | | | | | [address] | | | +--------+ + + + [...]
--- OUTSIDE RECORDS SUMMARY | ~2019-01-12 | XMS | Clinical Summary ---
Demographics + + + | Address | [address] | | | [place] [address] | + + + | Home Phone | | + + + | Preferred Language | Unknown | + + + | Marital Status | | + + + | Shinto Affiliation | Unknown | + + + | Race | Unknown | + + + | Ethnic Group | Unknown | + + + Author + + + | Author | [facility] | | | and [place] | + + + | Organization | [facility] | | | and [place] | + + + | Address | Unknown | + + + | Phone | Unavailable | + + + Care Team Providers + +------+ + | Care Federal Air Marshal Name | Role | Phone | + [...] (See Comments) | Medium | 07/07/19 | [place] like she | | | | | 19 | couldn't breathe | + + + + + + | Penicillins | Rash | Low | 07/07/19 | | | | | | 19 | | + + + + + + | Oxycodone | Other (See Comments) | Medium | 07/07/19 | [place] heart racing, | | | | | [...] | + +--------+ +--------+ +---------+--------+ | MEDICAID [place] | MEDICA | [id number] | | [phone] | | Medica | | | ID [place] | | 016-Pr | 2 | | id | | | PLUS | | esent | | | | + +--------+ +--------+ +---------+--------+ | [facility] | IHS | [id number] | | | | Indemn | | [...] Person | Self | [birth year] | [address] | | | joseph/Thee | | 1971 | [phone] | [place] [address] | | | karri | | | 3 (Home) | | + +--------+ +--------+ + + Advance Directives Patient has advance care planning documents on file. For more information, please contact:[facility] [place] [address]
--- OUTSIDE RECORDS SUMMARY | ~2019-01-12 | XMS | Encounter Summary ---
Demographics + + + | Address | [address] | | | [place] [address] | + + + | Home Phone | | + + + | Preferred Language | Unknown | + + + | Marital Status | | + + + | Sikh Affiliation | PRO | + + + | Race | or | + + + | Ethnic Group | Not or | + + + Author + + + | Author | [facility] | + + + | Organization | [facility] | + + + | Address | Unknown | + + + | Phone | Unavailable | + + + Support + + + + + | Name | Relationship | Address | Phone | + + + + + | Conrad | ECON | [address] | | | [place] | | [place] | | | | | [address] | | + + + + + Care Team Providers + +------+ + | Care Art Librarian Name | Role | Phone | + [...] Rd | | | | | | [place], [place] | | | | | | [address] | | | +--------+ + + + [...]
--- OUTSIDE RECORDS SUMMARY | ~2019-01-12 | XMS | Encounter Summary ---
Demographics + + + | Address | [address] | | | [place] [address] | + + + | Home Phone | | + + + | Preferred Language | Unknown | + + + | Marital Status | | + + + | Yazidi Affiliation | PRO | + + + | Race | or | + + + | Ethnic Group | Not or | + + + Author + + + | Author | [facility] | + + + | Organization | [email or web address] | + + + | Address | Unknown | + + + | Phone | Unavailable | + + + Support + + + + + | Name | Relationship | Address | Phone | + + + + + | Conrad | ECON | [address] | | | Baron | | [place], [place] | | | | | [address] | | + + + + + Care Team Providers + +------+ + | Care Refractory Specialist Name | Role | Phone | + +------+ + PCP | Unavailable | + +------+ + Encounter Details +--------+ + + + + | Date | Type | Department | Care Team | Description | +--------+ + + + + | 11/03/ | Abstract | Rheumatology at | Clinic, | | | 2012 | | Physicians Cathy | Rheumatology | | | | | [address] | | | | | | [place]y [place] Mailcode: | | | | | | [address] Physician's | | | | | | [place], | | | | | | [place] [address] | | | | | | [phone] | | | +--------+ + + + [...]
--- OUTSIDE RECORDS SUMMARY | ~2019-01-12 | XMS | Clinical Summary ---
Demographics + + + | Address | [address] | | | [place] [address] | + + + | Home Phone | | + + + | Preferred Language | Unknown | + + + | Marital Status | | + + + | Episcopal Affiliation | PRO | + + + [...] + + | Conrad | ECON | [address] | | | [place] | | [place] | | | | | [address] | | + + + + + Care Team Providers + +------+ + | Care Hunting Guide Name | Role | Phone | + +------+ + | Omari Shabazz | PCP | | + +------+ + Source Comments JEANLENIN is fully live on both EpicCare Ambulatory and EpicCare InPatient[facility] Allergies + + + + [...] | + + + + + | Pneumococcal | | | | | vaccination (1 of 3 | 9 | | | | - PCV13) | | | | + + + + + | Influenza (Flu) | | | | | vaccination (#1) | 9 | | | + [...] | | + +--------+ +--------+ +---------+--------+ | [facility] | [facility] | xxxxxxxxx | Effect | | | [...] Person | Self | [birth year] | [address] | | | joseph/Thee | | 1971 | [phone] | [place] [address] | | | karri | | | 3 (Home) | | + +--------+ +--------+ + +
--- OUTSIDE RECORDS SUMMARY | ~2019-01-12 | XMS | Clinical Summary ---
Demographics + + + | Address | [address] | | | [place] [address] | + + + | Home Phone | | + + + | Preferred Language | Unknown | + + + | Marital Status | | + + + | Confucianism Affiliation | PRO | + + + [...] + + | Conrad | ECON | [address] | | | [place] | | [place] | | | | | [address] | | + + + + + Care Team Providers + +------+ + | Care Site Foreman Name | Role | Phone | + +------+ + | Omari Shabazz | PCP | | + +------+ + Source Comments JEANLENIN is fully live on both EpicCare Ambulatory and EpicCare InPatient.[facility] Allergies + + + + [...] | | + +--------+ +--------+ +---------+--------+ | [facility] | [place] [place] | xxxxxxxxx | Effect | | | [...] Person | Self | [birth year] | | [address] | | | joseph/Thee | | 1971 | [phone] | [place] [address] | | | karri | | | 3 (Home) | | + +--------+ +--------+ + +
--- OUTSIDE RECORDS SUMMARY | ~2019-01-12 | XMS | Clinical Summary ---
Demographics + + + | Address | [address] | | | [place] [address] | + + + | Home Phone | | + + + | Preferred Language | Unknown | + + + | Marital Status | | + + + | Sabianist Affiliation | Unknown | + + + | Race | Unknown | + + + | Ethnic Group | Unknown | + + + Author + + + | Author | [facility] | | | 11-28-18) | + + + | Organization | [facility] | | | 11-28-18) | + + + | Address | Unknown | + + + | Phone | Unavailable | + + + Support + + +---------+ + | Name | Relationship | Address | Phone | + + +---------+ + | Contact,No | ECON | Unknown | | + + +---------+ + Care Team Providers + +------+ + | Care Gritting Machine Operator Name | Role | Phone [...] | 02/24/2007 | | | (#1) | 9 | [...] +------+-------+ + | MEDICAID | MEDICA | [id number] | | | [address] | | | [place] | | | | [place] | | | [place] | | | | [address] | + +--------+ +------+-------+ + + +--------+ +--------+ + + | Guarantor Name | Accoun | Relation to | Date | Phone | Billing Address | | | t Type | Patient | of | | | | | | | | | | + +--------+ +--------+ + + | ENIO SCHMITZ | Person | Self | [birth year] | Home: | [address] | | | al/Thee | | 1971 | [phone] | [place] [address] | | | karri | | | [phone] | | + +--------+ +--------+ + +"
--- OUTSIDE RECORDS SUMMARY | ~2019-01-12 | XMS | Clinical Summary ---
Demographics + + + | Address | [address] | | | [place] [address] | + + + | Home Phone | | + + + | Preferred Language | Unknown | + + + | Marital Status | | + + + | Taoism Affiliation | Unknown | + + + | Race | Unknown | + + + | Ethnic Group | Unknown | + + + Author + + + | Author | [facility] | | | [facility] [place] | + + + | Organization | [facility] | | | and [place] | + + + | Address | Unknown | + + + | Phone | Unavailable | + + + Care Team Providers + +------+ + | Care Platform Loader Name | Role | Phone | + [...] (See Comments) | Medium | 07/07/19 | [place] like she | | | | | 19 | couldn't breathe | + + + + + + | Penicillins | Rash | Low | 07/07/19 | | | | | | 19 | | + + + + + + | Oxycodone | Other (See Comments) | Medium | 07/07/19 | [place] heart racing, | | | | | [...] +---------+--------+ | MEDICAID [place] | MEDICA | [id number] | | [phone] | | Medica | | | ID [place] | | 016-Pr | 2 | | id | | | PLUS | | esent | | | | + +--------+ +--------+ +---------+--------+ | [facility] | IHS | [id number] | | | | Indemn | | [...] Person | Self | [birth year] | | [address] | | | joseph/Thee | | 1971 | [phone] | [place] [address] | | | karri | | | 3 (Home) | | + +--------+ +--------+ + + Advance Directives Patient has advance care planning documents on file. For more information, please contact:[facility] [address]
--- OUTSIDE RECORDS SUMMARY | ~2019-01-12 | XMS | Encounter Summary ---
Demographics + + + | Address | [address] | | | [place] [address] | + + + | Home Phone [...] + + + | Author | [facility] | + + + | Organization | [facility] | + + + | Address | Unknown | + + + | Phone | Unavailable | + + + Support + + + + + | Name | Relationship | Address | Phone | + + + + + | Conrad | ECON | [address] | | | [place] | | [place] | | | | | [address] | | + + + + + Care Team Providers + +------+ + | Care Pump Tender Name | Role | Phone | + [...] Rayo | | | | | [address] | [address] | | | | | [place]y [place] Mailcode: | [place] [address] | | | | | [address] Physician's | [phone] | | | | | Cathy, 4th Floor | | | | | | [place], [place] | | | | | | [address] | | | | | | [phone] | | | +--------+ + + + [...]
--- OUTSIDE RECORDS SUMMARY | ~2019-01-12 | XMS | Encounter Summary ---
Demographics + + + | Address | [address] | | | [place] [address] | + + + | Home Phone [...] + + | Author | [facility] | + + + | Organization | [facility] | + + + | Address | Unknown | + + + | Phone | Unavailable | + + + Support + + + + + | Name | Relationship | Address | Phone | + + + + + | Conrad | ECON | [address] | | | [place] | | [place] | | | | | [address] | | + + + + + Care Team Providers + +------+ + | Care Dot Compliance Manager Name | Role | Phone | + +------+ + | Omari Shabazz | PCP | | + +------+ + Encounter Details +--------+------+ + + + | Date | Type | Department | Care Team | Description | +--------+------+ + + + | 02/04/ | Lab | Laboratory, | | Psoriatic arthritis | | 2012 | | Specimen Collection | | ([facility]); Carnitine | | | | at [facility] 3rd Floor | | palmitoyltransferase | | | | [address] | | II deficiency (HCC) | | | | Jennifer [place], | | | | | | [place] [address] | | | | | | [phone] | | | +--------+------+ + + + [...] | + + + + + | [facility] | [address] | [place] [address] | | | SERVICES, CORE | PARK [...] Directory | | | | | | ([place]).Performed | | | | | | by [facility] | | | | | | Laboratories,[address] | | | | | | [place] [address] | | | | | | [phone]. | | | | | | [facility], Nadir Sung, | | | [...] [facility] | [address] | [place], [place] | | | UN[facility] P[facility] - INTFC | | [address] | | + + + + + [...] [facility] | [address] | [place] [address] | | | SERVICES, CORE | PARK [...] | + + + + + | [facility] | [address] | [place] [address] | | | SERVICES, SPECIAL | PARK [...] + | [facility] - | [address] | [place] [address] | | | [place] | | | | + + + [...] + | [facility] - | [address] | [place] [address] | | | [place] | | | | + + + [...] | | | LABORATORY | | | [facility] | | | SERVICES, | | | [...] | + + + + + | [facility] | [address] | [place] [address] | | | SERVICES, CORE | PARK [...] + | [facility] - | [address] | [place] [address] | | | [place] | | | [...] + | [facility] | [address] | [place] [address] | | | KO, ANDREW | [address] | | | + + + + + documented in this encounter Visit Diagnoses + + | Diagnosis | + + | Psoriatic arthritis (HCC) Psoriatic arthropathy | + + | 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
--- OUTSIDE RECORDS SUMMARY | ~2019-01-12 | XMS | Encounter Summary ---
Demographics + + + | Address | [address] | | | [place] [address] | + + + | Home Phone | | + + + | Preferred Language | Unknown | + + + | Marital Status | | + + + | Hindu Affiliation | PRO | + + + | Race | or | + + + | Ethnic Group | Not or | + + + Author + + + | Author | [facility] | + + + | Organization | [facility] | + + + | Address | Unknown | + + + | Phone | Unavailable | + + + Support + + + + + | Name | Relationship | Address | Phone | + + + + + | Conrad | ECON | [address] | | | Baron | | [place] | | | | | [address] | | + + + + + Care Team Providers + +------+ + | Care Concrete Pipe Maker Name | Role | Phone | [...] | | | | | | [place], | | | | | | [place] [address] | | | | | | [phone] | | | +--------+ + + + [...] | | | | | signed / ONEMI | | | | | | MADELEINE [...]
--- OUTSIDE RECORDS SUMMARY | ~2019-01-12 | XMS | Encounter Summary ---
Demographics + + + | Address | [address] | | | [place] [address] | + + + | Home Phone [...] + | Author | [facility] | + + + | Organization | [facility] | + + + | Address | Unknown | + + + | Phone | Unavailable | + + + Support + + + + + | Name | Relationship | Address | Phone | + + + + + | Conrad | ECON | [address] | | | [place]aine | | [place] | | | | | [address] | | + + + + + Care Team Providers + +------+ + | Care Pile Driving Nozzleman Name | Role | Phone | + [...] [address] | | | | | | [place], [place] | | | | | | [address] | | | +--------+ + + + [...]
--- OUTSIDE RECORDS SUMMARY | ~2019-01-12 | XMS | Encounter Summary ---
Demographics + + + | Address | [address] | | | [place] [address] | + + + | Home Phone [...] + + | Author | [facility] | + + + | Organization | [facility] [employer] [facility] | + + + | Address | Unknown | + + + | Phone | Unavailable | + + + Support + + + + + | Name | Relationship | Address | Phone | + + + + + | Conrad | ECON | [address] | | | [place] | | [place] | | | | | [address] | | + + + + + Care Team Providers + +------+ + | Care Inhalation Therapy Aides Teacher Name | Role | Phone | + [...] [address] | | | | | | [place], [place] | | | | | | [address] | | | +--------+ + + + [...]
--- OUTSIDE RECORDS SUMMARY | ~2019-01-12 | XMS | Encounter Summary ---
Demographics + + + | Address | [address] | | | [place] [address] | + + + | Home Phone | | + + + | Preferred Language | Unknown | + + + | Marital Status | | + + + | Presybeterian Affiliation | PRO | + + + | Race | or | + + + | Ethnic Group | Not or | + + + Author + + + | Author | [facility] | + + + | Organization | [facility] [facility] | + + + | Address | Unknown | + + + | Phone | Unavailable | + + + Support + + + + + | Name | Relationship | Address | Phone | + + + + + | Conrad | ECON | [address] | | | [place] | | [place] | | | | | [address] | | + + + + + Care Team Providers + +------+ + | Care Funeral Arranger Name | Role | Phone | + +------+ + | Omari Shabazz | PCP | | + +------+ + Encounter Details +--------+------+ + + + | Date | Type | Department | Care Team | Description | +--------+------+ + + + | 02/04/ | Lab | Laboratory, | | Psoriatic arthritis | | 2012 | | Specimen Collection | | ([facility]); Carnitine | | | | at [facility] 3rd Floor | | 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 | | | | | | [facility], Nadir Sung, | | | | [...] [facility] | [address] | [place], [place] | | | UN[facility] | | [address] | | + + + + + [...] [facility] | [address] | [place] [address] | | | SERVICES, CORE | PARK [...] | + + + + + | [facility] | [address] | [place] [address] | | | SERVICES, SPECIAL | PARK [...] + | [facility] | [address] | [place] [address] | | | [place] | | | | + + + [...] + | [facility] | [address] | [place] [address] | | | [place] | | | | + + + [...] | | | LABORATORY | | | PERUVIAN | | | SERVICES, | | | [...] | + + + + + | [facility] | [address] | [place] [address] | | | SERVICES, CORE | PARK [...] + | [facility] - | [address] | [place] [address] | | | [place] | | | [...] [facility] | [address] | [place] [address] | | | KO, ANDREW | [address] | | | + + + + + documented in this encounter Visit Diagnoses + + | Diagnosis | + + | Psoriatic arthritis (HCC) Psoriatic arthropathy | + + | 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
--- OUTSIDE RECORDS SUMMARY | ~2019-01-12 | XMS | Clinical Summary ---
Demographics + + + | Address | [address] | | | [place] [address] | + + + | Home Phone | | + + + | Preferred Language | Unknown | + + + | Marital Status | | + + + | Pentecostal Affiliation | Unknown | + + + | Race | Unknown | + + + | Ethnic Group | Unknown | + + + Author + + + | Author | [facility] (Historical as of | | | 11-28-18) | + + + | Organization | [facility]erged [facility] (Historical as of | | | 11-28-18) [...] Team Providers + +------+ + | Care Executive Team Leader Name | Role | Phone | [...] +------+-------+ + | MEDICAID | MEDICA | [id number] | | | [address] | | | [place] | | | | [place] | | | [place] | | | | [address] | + +--------+ +------+-------+ + + +--------+ +--------+ + + | Guarantor Name | Accoun | Relation to | Date | Phone | Billing Address | | | t Type | Patient | of | | | | | | | | | | + +--------+ +--------+ + + | ENIO SCHMITZ | Person | Self [birth year] | Home: | [address] | | | al/Thee | | 1971 | [phone] | [place] [address] | | | karri | | | [phone] | | + +--------+ +--------+ + +"
--- OUTSIDE RECORDS SUMMARY | ~2019-01-12 | XMS | Encounter Summary ---
Demographics + + + | Address | [address] | | | [place] [address] | + + + | Home Phone [...] Author | [facility] | + + + | Organization | [facility] | + + + | Address | Unknown | + + + | Phone | Unavailable | + + + Support + + + + + | Name | Relationship | Address | Phone | + + + + + | Conrad | ECON | [address] | | | Baron | | [place], [place] | | | | | [address] | | + + + + + Care Team Providers + +------+ + | Care Identity Management Consultant Name | Role | Phone | [...] | Rheumatology | | | | | [address] | | | | | | [place] Mailcode: | | | | | | [address] | | | | | | [place], | | | | | | [place] [address] | | | | | | [phone] | | | +--------+ + + + [...]
--- OUTSIDE RECORDS SUMMARY | ~2019-01-12 | XMS | Encounter Summary ---
Demographics + + + | Address | [address] | | | [place] [address] | + + + | Home Phone | | + + + | Preferred Language | Unknown | + + + | Marital Status | | + + + | Confucianist Affiliation | PRO | + + + | Race | or | + + + | Ethnic Group | Not or | + + + Author + + + | Author | [facility] | + + + | Organization | [facility] | + + + | Address | Unknown | + + + | Phone | Unavailable | + + + Support + + + + + | Name | Relationship | Address | Phone | + + + + + | Conrad | ECON | [address] | | | Loraine | | [place] | | | | | [address] | | + + + + + Care Team Providers + +------+ + | Care Lamp Inspector Name | Role | Phone | [...] | Other | | 2017 | | [facility] & | | ([facility]) | | | | Healing [facility] | | | | | | [place] Mailcode: | | | | | | [facility] | | | | | | Health and Healing, | | | | | | Building | | | | | | Floor [place], [place] | | | | | | [address] | | | | | | [phone] | | | +--------+ + + + [...]
--- OUTSIDE RECORDS SUMMARY | ~2019-01-12 | XMS | Encounter Summary ---
Demographics + + + | Address | [address] | | | [place] [address] | + + + | Home Phone | | + + + | Preferred Language | Unknown | + + + | Marital Status | | + + + | Restorationist Affiliation | PRO | + + + | Race | or | + + + | Ethnic Group | Not or | + + + Author + + + | Author | [facility] | + + + | Organization | [facility] [employer] [facility] | + + + | Address | Unknown | + + + | Phone | Unavailable | + + + Support + + + + + | Name | Relationship | Address | Phone | + + + + + | Conrad | ECON | [address] | | | [place] | | [place] | | | | | [address] | | + + + + + Care Team Providers + +------+ + | Care Winding Department Supervisor Name | Role | Phone | + [...] | | | [address] | [address] | | | | | [place] Mailcode: | [place] [address] | | | | | [address] | [phone] | | | | | [address]athy, 4th Floor | | | | | | [place], [place] | | | | | | [address] | | | | | | [phone] | | | +--------+ + + + [...]
--- OUTSIDE RECORDS SUMMARY | ~2019-01-12 | XMS | Encounter Summary ---
Demographics + + + | Address | [address] | | | [place] [address] | + + + | Home Phone | | + + + | Preferred Language | Unknown | + + + | Marital Status | | + + + | Gnosticism Affiliation | PRO | + + + | Race | or | + + + | Ethnic Group | Not or | + + + Author + + + | Author | [facility] | + + + | Organization | [facility] | + + + | Address | Unknown | + + + | Phone | Unavailable | + + + Support + + + + + | Name | Relationship | Address | Phone | + + + + + | Conrad | ECON | [address] | | | [place] | | [place] | | | | | [address] | | + + + + + Care Team Providers + +------+ + | Care Methods Specialist Engineer Name | Role | Phone | + +------+ + | Omari Shabazz | PCP | | + +------+ + Encounter Details +--------+ + + + + | Date | Type | Department | Care Team | Description | +--------+ + + + + | 08/04/ | Abstract | Neurology at | Clinic, Neurology | | | 2013 | | [facility] & | | | | | | Healing [address] | | | | | | [place] Mailcode: | | | | | | [facility] | | | | | | Health and Healing, | | | | | | [facility] | | | | | | [place], [place] | | | | | | [address] | | | | | | [phone] | | | +--------+ + + + [...]
[~2019-01-12 22:49] MED LIST changes: +ACETAMINOPHEN500 MG PO
--- OUTSIDE RECORDS SUMMARY | 2019-01-12 22:52 | XMS ---
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 \T\middot;\T\nbsp; PLEASE REFER PATIENT TO [facility] FOR NON EMERGENT MEDICAL NEEDS. \T\middot;\ T\nbsp; [facility] CAN SEE PATIENTS SAME DAY FOR APTS IF PATIENT CALLS FIRST THING IN THE MORNING. E.D. VISIT COUNT (12 MO.) [address] [facility] TOTAL 5 NOTE: Visits indicate total known visits. ED/UCC VISIT TRACKING (12 MO.) 01/12/2019 22:49 [facility] [place] TYPE: Emergency COMPLAINT: - FOOT PAIN/INJURY 12/01/2018 22:20 [facility] [place] TYPE: Emergency COMPLAINT: - NAUSEA DIAGNOSES: - Allergy status to narcotic agent status - Allergy status to penicillin - Allergy status to other antibiotic agents status - Nausea - Rhabdomyolysis - Allergy status to other drugs, medicaments and biological substances status 08/31/2018 08:06 [facility] [place] TYPE: Emergency [...] narcotic agent status - Rhabdomyolysis - Other meterman (current) drug therapy - Allergy status to penicillin INPATIENT VISIT TRACKING (12 MO.) No inpatient visits to display in this time frame [id number]
[2019-01-13] MEDS ORDERED: NORCO 5-325 TA1 EACH PO (00:22)
[2019-01-13] MEDS ORDERED: CRUTCH1 EACH (00:22)
== END 2019-01-13 00:48 | disposition home or self-care (01) ==
LOC: ED 22:49
DX: S93.401A Sprain of unspecified ligament of right ankle, initial encounter (principal); X50.9XXA Other and unspecified overexertion or strenuous movements or postures, initial encounter; Z88.0 Allergy status to penicillin; Z88.1 Allergy status to other antibiotic agents; Z88.5 Allergy status to narcotic agent; Z88.8 Allergy status to other drugs, medicaments and biological substances; Z79.899 Other long term (current) drug therapy
CPT/HCPCS: 73630; 99283

== ENCOUNTER 2019-03-27 09:56 | Emergency (ER) | payer OTHER ==
[~2019-03-27] VITALS: Ht 160 cm; Wt 78.7 kg
--- OUTSIDE RECORDS SUMMARY | ~2019-03-27 | XMS | Clinical Summary ---
Demographics + + + | Address | [address] | | | [place] [address] | + + + | Home Phone | | + + + | Preferred Language | Unknown | + + + | Marital Status | | + + + | Gnosticist Affiliation | Unknown | + + + | Race | Unknown | + + + | Ethnic Group | Unknown | + + + Author + + + | Author | [facility] | | | and [place] | + + + | Organization | [facility] | | | and [place] | + + + | Address | Unknown | + + + | Phone | Unavailable | + + + Care Team Providers + +------+ + | Care Director Of Distance Learning Name | Role | Phone | + +------+ + | Omari Shabazz PA-C | PCP | | + +------+ + Allergies + + + + + + | Active Allergy | Reactions | Severity | Noted | Comments | | | | | Date | | + + + + + + | Prochlorperazine | Other (See Comments) | Medium | 07/07/19 | Made her feel more | | | | | 19 | sick | + + + + + + | Erythromycin | Rash | Low | 07/07/19 | | | | | | 19 | | + + + + + + | Fentanyl | Other (See Comments) | Medium | 07/07/19 | [place] like she | | | | | 19 | couldn't breathe | + + + + + + | Penicillins | Rash | Low | 07/07/19 | | | | | | 19 | | + + + + + + | Oxycodone | Other (See Comments) | Medium | 07/07/19 | [place] heart racing, | | | | | 19 | anxious | + + + + + + | Promethazine | Other (See Comments) | Medium | 07/07/19 | Tw[place] | | | | | 19 | | + + + + + + Medications + + + +---------+------+------+-------+ | Medication | Sig | Dispensed | Refills | Star | End | Statu | | | | | | t | Date | s | | | | | | Date | | | + + + +---------+------+------+-------+ | omeprazole | Take 20 mg by mouth | | 0 | | | Activ | | (PRILOSEC) 20 mg | every morning | | | | | e | | capsule | (before breakfast). | | | | | | + + + +---------+------+------+-------+ | acetaminophen | Take 650 mg by mouth | | 0 | | | Activ | | (TYLENOL) 325 mg | every 4 hours as | | | | | e | | tablet | needed for Pain. | | | | | | + + + +---------+------+------+-------+ | ibuprofen (ADVIL, | Take 400 mg by mouth | | 0 | | | Activ | | MOTRIN) 400 mg | every 6 hours as | | | | | e | | tablet | needed for Pain. | | | | | | + + + +---------+------+------+-------+ | diphenhydrAMINE | Take 25 mg by mouth | | 0 | | | Activ | | (BENADRYL) 25 mg | every 6 hours as | | | | | e | | tablet | needed for Itching | | | | | | | | or Allergies. | | | | | | + + + +---------+------+------+-------+ Active Problems Not on file Social History + +-------+ +--------+------+ | Tobacco Use | Types | Packs/Day | Years | Date | | | | | Used | | + +-------+ +--------+------+ | Never Smoker | | | | | + +-------+ +--------+------+ + + +---------+ + | Alcohol Use | Drinks/Week | oz/Week | Comments | + + +---------+ + | No | | | | + + +---------+ [...] recent travel history available. | + + Last Filed Vital Signs + + + + + | Vital Sign | Reading | Time Taken | Comments | + + + + + | Blood Pressure | 144/75 | 07/06/2016 9:43 PM | | | | | PDT | | + + + + + | Pulse | 67 | 07/06/2016 9:43 PM | | | | | PDT | | + + + + + | Temperature | 36.9 C (98.5 F) | 07/06/2016 8:11 PM | | | | | PDT | | + + + + + | Respiratory Rate | 18 | 07/06/2016 8:11 PM | | | | | PDT | | + + + + + | Oxygen Saturation | 99% | 07/06/2016 9:43 PM | | | | | PDT | | + + + + + | Inhaled Oxygen | - | - | | | Concentration | | | | + + + + + | Weight | 68 kg (150 lb) | 07/06/2016 8:11 PM | | | | | PDT | | + + + + + | Height | 160 cm (5' 3") | 07/06/2016 8:11 PM | | | | | PDT | | + + + + + | Body Mass Index | 26.57 | 07/06/2016 8:11 PM | | | | | PDT | | + + + + + Plan of Treatment + + + + + | Health Maintenance | Due Date | Last Done | Comments | + + + + + | Vaccine: | | | | | Dtap/Tdap/Td (1 - | 2 | | | | Tdap) | | | | + + + + + | Cervical Cancer | | | | | Screening (Pap) | 3 | | | + + + + + | Breast Cancer | | | | | Screening | 8 | | | + + + + + | Vaccine: Influenza | | | | | (#1) | 9 | | | + + + + + Results Not on filefrom Last 3 Months Insurance + +--------+ +--------+ +---------+--------+ | Payer | Benefi | Subscriber | Effect | Phone | Address | Type | | | t Plan | ID | cliff | | | | | | / | | Dates | | | | | | Group | | | | | | + +--------+ +--------+ +---------+--------+ | [place] | MEDICA | [id number] | | [phone] | | Medica | | | [place] | | 016-Pr | 2 | | id | | | PLUS | | esent | | | | + +--------+ +--------+ +---------+--------+ | [facility] | IHS | [id number] | | | | Indemn | | SERVICE | YELLOW | | 012-Pr | | | ity | | | HAWK | | esent | | | | + +--------+ +--------+ +---------+--------+ + +--------+ +--------+ + + | Guarantor Name | Accoun | Relation to | Date | Phone | Billing Address | | | t Type | Patient | of | | | | | | | | | | + +--------+ +--------+ + + | Maris Cih | Person | Self [birth year] | [address] | | | al/Thee [birth year] | 1971 | [phone] | [place] [address] | | | karri | | | 3 (Home) | | + +--------+ +--------+ + + Advance Directives + + + + + | Type | Date Recorded | Patient | Explanation | | | | Elementary Spanish Teacher | | + + + + + | Power of | | | | | Thread Drawer | | | | + + + + + | Advance | 07/06/2016 8:54 | | | | Directive | PM | | | + + + + +
--- OUTSIDE RECORDS SUMMARY | ~2019-03-27 | XMS | Encounter Summary ---
Demographics + + + | Address | [address] | | | [place] [address] | + + + | Home Phone | | + + + | Preferred Language | Unknown | + + + | Marital Status | | + + + | Catholic Affiliation | PRO | + + + | Race | or | + + + | Ethnic Group | Not or | + + + Author + + + | Author | [facility] [employer] [facility] | + + + | Organization | [facility] | + + + | Address | Unknown | + + + | Phone | Unavailable | + + + Support + + + + + | Name | Relationship | Address | Phone | + + + + + | Conrad | ECON | [address] | | | Baron | | [place] | | | | | [address] | | + + + + + Care Team Providers + +------+ + | Care Sanding Machine Buffer Name | Role | Phone | + [...] [facility] | | | | | | [address] | | | | | | Loop Mailcode: | | | | | | [address] | | | | | | [place], | | | | | | [place] [address] | | | | | | [phone] | | | +--------+ + + + [...] | | | | | jointspaces are normal. | | | | | | There is no erosion, | | | | | | enthesitis, or | | | | | | periostitis. | | | | | | Alignmentis normal. | | | | | | There's no soft tissue | | | | | | abnormality. Left | | | | | | hand:There is no | | | | | | fracture or destructive | | | | | | osseous lesion. The | | | | | | joint spacesare normal. | | | | | | There is no erosion, | | | | | | enthesitis, or | | | | | | periostitis. Alignment | | | | | | isnormal. There's no | | | | | | soft tissue abnormality. | | | | | | IMPRESSION: Normal | | | | | | hands, no erosions, | | | | | | periostitis or | | | | | [...] | | + +---------+ + + | [facility] DEPARTMENT OF | | | | | RADIOLOGY | | | | + +---------+ + + documented in this encounter Visit Diagnoses + + | Diagnosis | + + | Psoriatic arthritis (HCC) Psoriatic arthropathy | + + documented in this encounter"
--- OUTSIDE RECORDS SUMMARY | ~2019-03-27 | XMS | Encounter Summary ---
Demographics + + + | Address | [address] | | | [place] [address] | + + + | Home Phone | | + + + | Preferred Language | Unknown | + + + | Marital Status | | + + + | Rastafari Affiliation | Unknown | + + + | Race | Unknown | + + + | Ethnic Group | Unknown | + + + Author + + + | Author | [facility] | | | and [place] | + + + | Organization | [facility] | | | and [place] | + + + | Address | Unknown | + + + | Phone | Unavailable | + + + Care Team Providers + +------+ + | Care Vp Human Resources Name | Role | Phone | + +------+ + | Omari Shabazz PA-C | PCP | | + +------+ + Reason for Visit +--------+ + | Reason | Comments | +--------+ + | Other | Telephone call to patient on 02/11/12 @ 5:30pm to schedule | | | consultation with Dr. Iraheta. Left voice mail message to please | | | return call. | +--------+ + Encounter Details +--------+ + + + + | Date | Type | Department | Care Team | Description | +--------+ + + + + | 02/11/ | Telephone | [facility] | Rober Iraheta MD [address] | Other (Telephone | | 2011 | | NEUR[facility] [place] | [address] | call to patient on | | | | [address], | [address], | 02/11/12 @ 5:30pm to | | | | RADHA SINHA [address] | [place] [address] | schedule | | | | [place] [address] | [phone] | consultation with | | | | [phone] | | Dr. Iraheta. Left voice | | | | | | mail message to | | | | | | please return call. | | | | | | ) | +--------+ + + + + Social [...] Not on filedocumented as of this encounter Visit Diagnoses Not on filedocumented in this encounter"
--- OUTSIDE RECORDS SUMMARY | ~2019-03-27 | XMS | Encounter Summary ---
Demographics + + + | Address | [address] | | | [place] [address] | + + + | Home Phone | | + + + | Preferred Language | Unknown | + + + | Marital Status | | + + + | Samaritan Affiliation | Unknown | + + + | Race | Unknown | + + + | Ethnic Group | Unknown | + + + Author + + + | Author | [facility] | | | and [place] | + + + | Organization | [facility] | | | and [place] | + + + | Address | Unknown | + + + | Phone | Unavailable | + + + Care Team Providers + +------+ + | Care Cart Driver Name | Role | Phone | + +------+ + | Omari Shabazz PA-C | PCP | | + +------+ + Reason for Visit + + + | Reason | Comments | + + + | Leg Pain | | | (Non-traumatic) | | + + + Auth/Cert +--------+--------+ + + + + | Status | Reason | Specialty | Diagnoses / | Referred By | Referred To | | | | | Procedures | Contact | Contact | +--------+--------+ + + + + | | | | | | | +--------+--------+ + + + + Encounter Details +--------+ + + + + | Date | Type | Department | Care Team | Description | +--------+ + + + + | 07/06/ | Emergency | [facility] | Adonay Reed, | Contusion of lower | | 2017 | | [facility] | MD [address] | leg, unspecified | | | | CENTER [address] | [place] | laterality, initial | | | | [place] | [address] | encounter (Primary | | | | [address] | | Dx) | | | | [phone] | | | +--------+ + + + [...] + + + documented in this encounter Discharge Instructions AttachmentsThe following attachments cannot be sent through Care Everywhere.LOWER EXTREMITY CONTUSION (COMORAN)documented in this encounter Medications at Time of Discharge + + + +---------+--------+ + | Medication | Sig | Dispensed | Refills | Start | End Date | | | | | | Date | | + + + +---------+--------+ + | acetaminophen | Take 650 mg by mouth | | 0 | | | | (TYLENOL) 325 mg | every 4 hours as | | | | | | tablet | needed for Pain. | | | | | + + + +---------+--------+ + | diphenhydrAMINE | Take 25 mg by mouth | | 0 | | | | (BENADRYL) 25 mg | every 6 hours as | | | | | | tablet | needed for Itching | | | | | | | or Allergies. | | | | | + + + +---------+--------+ + | ibuprofen (ADVIL, | Take 400 mg by mouth | | 0 | | | | MOTRIN) 400 mg | every 6 hours as | | | | | | tablet | needed for Pain. | | | | | + + + +---------+--------+ + | omeprazole | Take 20 mg by mouth | | 0 | | | | (PRILOSEC) 20 mg | every morning | | | | | | capsule | (before breakfast). | | | | | + + + +---------+--------+ + documented as of this encounter Plan of Treatment + +------+--------+ + + | Name | Type | Priori | Associated Diagnoses | Date/Time | | | | ty | | | + +------+--------+ + + | ED INFORMATION | SHERIDAN | Routin | | 07/06/2016 7:33 PM | | EXCHANGE | | e | | PDT | + +------+--------+ + + documented as of this encounter Procedures + +--------+ + + + | Procedure Name | Priori | Date/Time | Associated Diagnosis | Comments | | | ty | | | | + +--------+ + + + | XR TIBIA STEVEULA | STAT | 07/06/2016 | | Results for this | | RIGHT 2 VW | | 8:49 PM | | procedure are in the | | | | PDT | | results section. | + +--------+ + + + | EXTRA GREEN TOP TUBE | Routin | 07/06/2016 | | Results for this | | | e | 8:47 PM | | procedure are in the | | | | PDT | | results section. | + +--------+ + + + | EXTRA GOLD TOP TUBE | Routin | 07/06/2016 | | Results for this | | | e | 8:47 PM | | procedure are in the | | | | PDT | | results section. | + +--------+ + + + | EXTRA BLUE TOP TUBE | Routin | 07/06/2016 | | Results for this | | | e | 8:47 PM | | procedure are in the | | | | PDT | | results section. | + +--------+ + + + | CBC NO DIFFERENTIAL | STAT | 07/06/2016 | | Results for this | | | | 8:46 PM | | procedure are in the | | | | PDT | | results section. | + +--------+ + + + | CK TOTAL | STAT | 07/06/2016 | | Results for this | | | | 8:46 PM | | procedure are in the | | | | PDT | | results section. | + +--------+ + + + | BASIC METABOLIC | STAT | 07/06/2016 | | Results for this | | PANEL | | 8:46 PM | | procedure are in the | | | | PDT | | results section. | + +--------+ + + + | ED INFORMATION | Routin | 07/06/2016 | | | | EXCHANGE | e | 7:33 PM | | | | | | PDT | | | + +--------+ + + + documented in this encounter Results XR Tibia Fibula Right 2 Vw (07/06/2016 8:49 PM PDT) + + | Specimen | + + | | + + + + + | Narrative | Performed At | + + + | XR TIBIA FIBULA RIGHT 2 VW 07/06/2016 8:37 PM HISTORY: LEG PAIN | [facility] | | (NON-TRAUMATIC). COMPARISON: None. FINDINGS: There are no | | | acute osseous abnormalities. No significant degenerative changes are | | | seen. Bone mineralization is normal. Soft tissue structures are | | | unremarkable. IMPRESSION - No acute osseous findings. | | | Dictated and Signed by: Mingo Ferrer MD Electronically signed: | | | 07/07/2016 12:41 PM | | + + + + + | Procedure Note | + + | Jonathan, Rad Results In - 07/07/2016 12:44 PM PDT XR TIBIA FIBULA RIGHT 2 VW 07/06/2016 | | 8:37 PMHISTORY: LEG PAIN (NON-TRAUMATIC).COMPARISON: None.FINDINGS:There are no acute | | osseous abnormalities. No significant degenerative changesare seen. Bone mineralization | | is normal. Soft tissue structures areunremarkable.IMPRESSION -No acute osseous | | findings.Dictated and Signed by: Mingo Ferrer MD Electronically signed: 07/07/2016 12:41 | | PM | |FINDINGS: | |There are no acute osseous abnormalities. No significant degenerative changes | |are seen. Bone mineralization is normal. Soft tissue structures are | |unremarkable. | | | |IMPRESSION - | |No acute osseous findings. | | | |Dictated and Signed by: Mingo Ferrer MD | | Electronically signed: 07/07/2016 12:41 PM | + + + +---------+ + + | Performing | Address | City/State/Zipcode | Phone Number | | Organization | | | | + +---------+ + + | [facility] | | | | + +---------+ + + Extra Gold Top Tube (07/06/2016 8:47 PM PDT) + +-------+ + + + | Component | Value | Ref Range | Performed | Pathologist | | | | | At | Signature | + +-------+ + + + | Extra Gold | Done | | [facility] | | | Top Tube | | | [facility] | | | | | | [facility] | | | | | | [facility] - | | | | | | LABORATORY | | + +-------+ + + + + + | Specimen | + + | Blood | + + + + + + + | Performing | Address | City/State/Zipcode | Phone Number | | Organization | | | | + + + + + | [facility] | [address] | [place] | [phone] | | [facility] | | [address] | | | - LABORATORY | | | | + + + + + Extra Blue Top Tube (07/06/2016 8:47 PM PDT) + +-------+ + + + | Component | Value | Ref Range | Performed | Pathologist | | | | | At | Signature | + +-------+ + + + | Extra Blue | Done | | [facility] | | | Top Tube | | | [facility] | | | | | | [facility] | | | | | | CENTER - | | | | | | LABORATORY | | + +-------+ + + + + + | Specimen | + + | Blood | + + + + + + + | Performing | Address | City/State/Zipcode | Phone Number | | Organization | | | | + + + + + | [facility] | [address] | [place] | [phone] | | [facility] | | [address] | | | - LABORATORY | | | | + + + + + Extra Green Top Tube (07/06/2016 8:47 PM PDT) + +-------+ + + + | Component | Value | Ref Range | Performed | Pathologist | | | | | At | Signature | + +-------+ + + + | Extra Green | Done | | [facility] | | | Top Tube | | | [facility] | | | | | | [facility] | | | | | | CENTER - | | | | | | LABORATORY | | + +-------+ + + + + + | Specimen | + + | Blood | + + + + + + + | Performing | Address | City/State/Zipcode | Phone Number | | Organization | | | | + + + + + | [facility] | [address] | [place] | [phone] | | [facility] | | [address] | | | - LABORATORY | | | | + + + + + Basic Metabolic Panel (07/06/2016 8:46 PM PDT) + + + + + + | Component | Value | Ref Range | Performed | Pathologist | | | | | At | Signature | + + + + + + | Na | 139 | 136 - 149 | [facility] | | | | | mmol/L | [facility] | | | | | | MEDICAL | | | | | | CENTER - | | | | | | LABORATORY | | + + + + + + | K | 3.6 | 3.5 - 5.1 | [facility] | | | | | mmol/L | [facility] | | | | | | MEDICAL | | | | | | CENTER - | | | | | | LABORATORY | | + + + + + + | Cl | 105 | 98 - 109 mmol/L | [facility] | | | | | | [facility] | | | | | | [facility] | | | | | | CENTER - | | | | | | LABORATORY | | + + + + + + | CO2 | 25 | 24 - 31 mmol/L | [facility] | | | | | | [facility] | | | | | | MEDICAL | | | | | | CENTER - | | | | | | LABORATORY | | + + + + + + | Anion Gap | 9 | 3 - 16 mmol/L | [facility] | | | | | | [facility] | | | | | | MEDICAL | | | | | | CENTER - | | | | | | LABORATORY | | + + + + + + | Glucose | 95 | 70 - 109 mg/dL | [facility] | | | | | | [facility] | | | | | | [facility] | | | | | | CENTER - | | | | | | LABORATORY | | + + + + + + | BUN | 12 | 7 - 18 mg/dL | [facility] | | | | | | [facility] | | | | | | [facility]ICAL | | | | | | CENTER - | | | | | | LABORATORY | | + + + + + + | Creatinine | 0.83 | 0.60 - 1.30 | [facility] | | | | | mg/dL | [facility] | | | | | | MEDICAL | | | | | | CENTER - | | | | | | LABORATORY | | + + + + + + | eGFR if not | >60Comment: GLOMERULAR | >=60 | [facility] | | | | FILTRATION | mL/min/1.73m2 | [facility] | | | [place] | RATE,ESTIMATED | | MEDICAL | | | | mL/min/1.20r4Fyky than | | CENTER - | | | | 60 Chronic kidney | | LABORATORY | | | | disease,if found over a | | | | | | 3-month period.Less than | | | | | | 15 Kidney failureFor | | | | | | | | | | | | Americans,multiply the | | | | | | calculated GFR by 1.21. | | | | | | | | | | + + + + + + | Calcium | 8.6 | 8.3 - 10.5 | [facility] | | | | | mg/dL | [facility] | | | | | | MEDICAL | | | | | | CENTER - | | | | | | LABORATORY | | + + + + + + | BUN/Creatin | 14.5 | | [facility] | | | ine Ratio | | | [facility] | | | | | | [facility]ICAL | | | | | | CENTER - | | | | | | LABORATORY | | + + + + + + + + | Specimen | + + | Blood | + + + + + + + | Performing | Address | City/State/Zipcode | Phone Number | | Organization | | | | + + + + + | [facility] | [address] | [place], [place] | [phone] | | [facility] | | [address] | | | - LABORATORY | | | | + + + + + CBC no Differential (07/06/2016 8:46 PM PDT) + +-------+ + + + | Component | Value | Ref Range | Performed | Pathologist | | | | | At | Signature | + +-------+ + + + | WBC | 8.8 | 4.0 - 11.0 K/uL | [facility] | | | | | | [facility] | | | | | | [facility]ICAL | | | | | | CENTER - | | | | | | LABORATORY | | + +-------+ + + + | RBC | 3.79 | 3.70 - 5.20 | [facility] | | | | | M/uL | [facility] | | | | | | MEDICAL | | | | | | CENTER - | | | | | | LABORATORY | | + +-------+ + + + | Hemoglobin | 12.1 | 11.5 - 16.0 | [facility] | | | | | g/dL | [facility] | | | | | | MEDICAL | | | | | | CENTER - | | | | | | LABORATORY | | + +-------+ + + + | Hematocrit | 36.2 | 34.0 - 47.0 % | [facility] | | | | | | [facility] | | | | | | MEDICAL | | | | | | CENTER - | | | | | | LABORATORY | | + +-------+ + + + | MCV | 95.5 | 83.0 - 101.0 fL | [facility] | | | | | | [facility] | | | | | | MEDICAL | | | | | | CENTER - | | | | | | LABORATORY | | + +-------+ + + + | MCH | 32.0 | 28.0 - 35.0 pg | [facility] | | | | | | [facility] | | | | | | MEDICAL | | | | | | CENTER - | | | | | | LABORATORY | | + +-------+ + + + | MCHC | 33.5 | 32.0 - 36.0 | [facility] | | | | | g/dL | [facility] | | | | | | MEDICAL | | | | | | CENTER - | | | | | | LABORATORY | | + +-------+ + + + | RDW-CV | 14.3 | <15.0 % | [facility] | | | | | | [facility] | | [facility] | | | [facility] | | | | | | CENTER - | | | | | | LABORATORY | | + +-------+ + + + | Platelet | 283 | 140 - 440 K/uL | [facility] | | | Count | | | [facility] | | | | | | MEDICAL | | | | | | CENTER - | | | | | | LABORATORY | | + +-------+ + + + | MPV | 9.1 | fL | [facility] | | | | | | [facility] | | | | | | MEDICAL | | | | | | CENTER - | | | | | | LABORATORY | | + +-------+ + + + + + | Specimen | + + | Blood | + + + + + + + | Performing | Address | City/State/Zipcode | Phone Number | | Organization | | | | + + + + + | [facility] | [address] | [place] | [phone] | | [facility] | | [address] | | | - LABORATORY | | | | + + + + + CK Total (07/06/2016 8:46 PM PDT) + +---------+ + + + | Component | Value | Ref Range | Performed | Pathologist | | | | | At | Signature | + +---------+ + + + | CK TOTAL | 745 (H) | 22 - 269 U/L | [facility] | | | | | | [facility] | | | | | | MEDICAL | | | | | | CENTER - | | | | | | LABORATORY | | + +---------+ + + + + + | Specimen | + + | Blood | + + + + + + + | Performing | Address | City/State/Zipcode | Phone Number | | Organization | | | | + + + + + | [facility] | [address] | [place] | [phone] | | [facility] | | [address] | | | - LABORATORY | | | | + + + + + documented in this encounter Visit Diagnoses + + | Diagnosis | + + | Contusion of lower leg, unspecified laterality, initial encounter - Primary | + + documented in this encounter Administered Medications + +---------+ +--------+-------+------+ | Medication Order | MAR | Action | Dose | Rate | Site | | | Action | Date | | | | + +---------+ +--------+-------+------+ | sodium chloride 0.9% (NS) bolus | New Bag | 07/07/19 | 1,000 | 2000 | | | 1,000 mL 1,000 mL, Intravenous, | | 17 8:48 | mLs | mL/hr | | | Administer over 30 Minutes, | | PM PDT | | | | | ONCE, 07/06/16 at 0, For 1 | | | | | | | dose | | | | | | + +---------+ +--------+-------+------+ +---+---+ | | | +---+---+ documented in this encounter
--- OUTSIDE RECORDS SUMMARY | ~2019-03-27 | XMS | Encounter Summary ---
Demographics + + + | Address | [address] | | | [place] [address] | + + + | Home Phone | | + + + | Preferred Language | Unknown | + + + | Marital Status | | + + + | Catholic Affiliation | Unknown | + + + | Race | Unknown | + + + | Ethnic Group | Unknown | + + + Author + + + | Author | [facility] | | | and [place] | + + + | Organization | [facility] | | | and [place] | + + + | Address | Unknown | + + + | Phone | Unavailable | + + + Care Team Providers + +------+ + | Care Api Architect Name | Role | Phone | + +------+ + | Omari Shabazz PA-C | PCP | | + +------+ + Encounter Details +--------+ + + + + | Date | Type | Department | Care Team | Description | +--------+ + + + + | 11/19/ | Orders Only | [facility] | Katya Ambrosio | | | 2017 | | CONVERSION [address] | [place] [address] | | | | | [address] | [facility] | | | | | [place], [place] | [place] [address] | | | | | [address] | [phone] | | | | | [phone] | | | +--------+ + + + [...] + +--------+ + + + | ECHO INTERPRETATION | Routin | 11/19/2017 | | Results for this | | OF OUTSIDE FILMS | e | 5:24 PM | | procedure are in the | | | | PDT | | results section. | + +--------+ + + + documented in this encounter Results ECHO Interpretation of Outside Films (11/19/2017 5:24 PM PDT) + + | Specimen | + + | | + + + + + | Impressions | Performed At | + + + | 1. The left ventricle is normal in size, wall thickness and normal | | | systolic function EF 65-70%. 2. The right ventricle is normal in size | | | and function. 3. The aortic valve is bicuspid with no stenosis or | | | regurgitation. 4. There is no pericardial effusion. | | + + + + + + | Narrative | Performed At | + + + | Patient Name: Maris Chi Date of : 1970 | | | Performing Physician: Mariah Castano | | | | | | INDICATIONS bicuspid [...] Left Ventricle: The diastolic filling pattern is | | | normal for the age of the patient. [...] of aortic stenosis. Mitral Valve: Normal appearing mitral | | | valve. Mitral Valve: There is trace mitral regurgitation. Tricuspid | | | Valve: The tricuspid valve appears structurally normal. Tricuspid | | | Valve: Trace tricuspid regurgitation present. Tricuspid Valve: There | | | is no evidence of pulmonary hypertension. Tricuspid Valve: The right | | | ventricular systolic pressure (pulmonary artery systolic pressure), as | | | measured by Doppler, is 24.76mmHg. Pulmonic Valve: The pulmonic | | | valve was not well visualized. Pericardium: There is no pericardial | | | effusion. Pericardium: No pleural effusion seen. IVC/Hepatic Veins: | | | The IVC is normal size (1.5-2.5cm) and collapses >50% with sniff, | | | consistent with central venous pressures of 5-10mmHg. Mass: No mass | | | visualized Thrombus: No clot visualized Septum: No ASD observed. | | | MEASUREMENTS Ao asc: 2.92 cm IVC: 1.58 cm | | | EDV(Teich): 87.07 ml IVSd: 0.62 cm LVIDd: 4.38 cm LVPWd: | | | 0.78 cm LVOT Area: 3.54 cm2 LVOT Diam: 2.12 cm %FS: | | | 30.20 % EF(Teich): 57.75 % ESV(Teich): 36.78 ml LVIDs: | | | 3.06 cm SV(Teich): 50.28 ml RVIDd: 2.32 cm LVEF MOD A2C: | | | 69.60 % SV MOD A2C: 84.37 ml LVEF MOD A4C: 73.79 % SV MOD | | | A4C: 77.57 ml EF Biplane: 71.07 % LVEDV MOD BP: 114.23 ml | | | LVESV MOD BP: 33.04 ml LVEDV MOD A2C: 121.23 ml LVLd A2C: | | | 8.19 cm LVEDV MOD A4C: 105.12 ml LVLd A4C: 8.41 cm LVESV MOD | | | A2C: 36.85 ml LVLs A2C: 6.48 cm LVESV MOD A4C: 27.54 ml | | | LVLs A4C: 5.84 cm LAESV(A-L): 36.31 ml LAESV Index (A-L): | | | 22.98 ml/m2 LAAs A2C: 17.04 cm2 LAESV A-L A2C: 53.44 ml LALs | | | A2C: 4.61 cm LAAs A4C: 9.94 cm2 LAESV A-L A4C: 21.18 ml | | | LALs A4C: 3.96 cm RAAs: 13.03 cm2 RAESV A-L: 31.45 ml | | | RAESV MOD: 30.49 ml RALs: 4.58 cm Ao Diam: 3.13 cm LA | | | Diam: 2.92 cm LA/Ao: 0.93 TAPSE: 3.25 cm AV maxPG: | | | 11.89 mmHg AV meanP.27 mmHg AV Vmax: 1.72 m/s AV Vmean: | | | 1.15 m/s AV VTI: 37.64 cm NAYELI Vmax: 1.95 cm2 NAYELI (VTI): | | | 2.04 cm2 AVAI Vmax: 0.00 cm2/m2 AVAI (VTI): 0.00 cm2/m2 LVOT | | | maxP.63 mmHg LVOT meanP.10 mmHg LVSI Dopp: 48.75 | | | ml/m2 LVSV Dopp: 77.02 ml LVOT Vmax: 0.95 m/s LVOT Vmean: | | | 0.69 m/s LVOT VTI: 21.73 cm MV A Yordy: 1.05 m/s MV DecT: | | | 242.45 ms MV E Yordy: 1.27 m/s MV E/A Ratio: 1.21 MV PHT: | | | 70.31 ms MVA By PHT: 3.12 cm2 Septal e': 0.07 m/s Septal | | | E/e': 17.12 Lateral e': 0.12 m/s Lateral E/e': 10.22 PV | | | maxP.29 mmHg PV Vmax: 0.90 m/s RAP: 5 mmHg RVSP: | | | 24.76 mmHg TR maxP.76 mmHg TR Vmax: 2.22 m/s | | | Project Management Professor: HCÉTOR Authenticated by: Mariah Castano Report Date/Time: | | | 11-19-2017 19:17:47 | | + + + + -----+ | Procedure Note | + -----+ | Mehul Castillo Conversion - 12/03/2018 4:25 PM PDT Patient Name: Ashley Chi of | | : 1970 Performing Physician: Mariah | | [place] INDICATIONS------ | | -----bicuspid aortic valve CONCLUSIONS 1. The left ventricle is normal in | | size, wall thickness and normal systolic function EF 65-70%.2. The right ventricle is | | normal in size and function.3. The aortic valve is bicuspid with no stenosis or | | regurgitation.4. There is no pericardial effusion. FINDINGS--------ECG rhythm: Sinus | | rhythm.Study: A 2-dimensional transthoracic echocardiogram with m-mode, spectral and | | color flow Doppler was perfomed.Study: This was a technically adequate study.Left | | Ventricle: Overall left ventricular systolic function is normal with, an EF between 65 - | | 70 %.Left Ventricle: The left ventricle cavity size is normal.Left Ventricle: Left | | ventricular wall thickness is normal.Left Ventricle: The diastolic filling pattern is | | normal for the age of the patient.Right Ventricle: The right ventricle is normal in size | | and function.Left Atrium: The left atrium is normal in size.Right Atrium: The right | | atrium is normal in size.Aortic Valve: The aortic valve is bicuspid.Aortic Valve: There | | is no evidence of aortic regurgitation.Aortic Valve: There is no evidence of aortic | | stenosis.Mitral Valve: Normal appearing mitral valve.Mitral Valve: There is trace mitral | | regurgitation.Tricuspid Valve: The tricuspid valve appears structurally | | normal.Tricuspid Valve: Trace tricuspid regurgitation present.Tricuspid Valve: There is | | no evidence of pulmonary hypertension.Tricuspid Valve: The right ventricular systolic | | pressure (pulmonary artery systolic pressure), as measured by Doppler, is | | 24.76mmHg.Pulmonic Valve: The pulmonic valve was not well visualized.Pericardium: There | | is no pericardial effusion.Pericardium: No pleural effusion seen.IVC/Hepatic Veins: The | | IVC is normal size (1.5-2.5cm) and collapses >50% with sniff, consistent with central | | venous pressures of 5-10mmHg.Mass: No mass visualizedThrombus: No clot visualizedSeptum: | | No ASD observed. MEASUREMENTS Ao asc: 2.92 cmIVC: 1.58 cmEDV(Teich): | | 87.07 mlIVSd: 0.62 cmLVIDd: 4.38 cmLVPWd: 0.78 cmLVOT Area: 3.54 [id number] Diam: | | 2.12 cm%FS: 30.20 %EF(Teich): [...] (A-L): 22.98 ml/m2LAAs | | A2C: 17.04 [id number] A-L A2C: 53.44 mlLALs A2C: 4.61 cmLAAs A4C: 9.94 [id number] | | A-L A4C: 21.18 mlLALs A4C: 3.96 cmRAAs: 13.03 [id number] A-L: 31.45 mlRAESV MOD: | | 30.49 mlRALs: 4.58 cmAo Diam: 3.13 cmLA Diam: 2.92 cmLA/Ao: 0.93TAPSE: 3.25 | | cmAV maxP.89 mmHgAV meanP.27 mmHgAV Vmax: 1.72 m/Kinaa Vmean: 1.15 m/Kiana | | VTI: 37.64 cmAVA Vmax: 1.95 cm2AVA (VTI): 2.04 [id number] Vmax: 0.00 cm2/m2AVAI | | (VTI): 0.00 cm2/m2LVOT maxP.63 mmHgLVOT meanP.10 mmHgLVSI Dopp: 48.75 | | ml/m2LVSV Dopp: 77.02 mlLVOT Vmax: 0.95 m/sLVOT Vmean: 0.69 m/sLVOT VTI: 21.73 | | cmMV A Yordy: 1.05 m/sMV DecT: 242.45 msMV E Yordy: 1.27 m/sMV E/A Ratio: 1.21MV | | PHT: 70.31 msMVA By PHT: 3.12 [id number] e': 0.07 m/sSeptal E/e': 17.12Lateral | | e': 0.12 m/sLateral E/e': 10.22PV maxP.29 mmHgPV Vmax: 0.90 m/sRAP: 5 | | mmHgRVSP: 24.76 mmHgTR maxP.76 mmHgTR Vmax: 2.22 m/s Project Management Professor: | | RKAuthenticated by: Mariah [facility] Date/Time: 11-19-2017 19:17:47 IMPRESSION: 1. | | The left ventricle is normal in size, wall thickness and normal systolic function EF | | 65-70%.2. The right ventricle is normal in size and function.3. The aortic valve is | | bicuspid with no stenosis or regurgitation.4. There is no pericardial effusion. | |MEASUREMENTS [...] |TR Vmax: 2.22 m/s | | | |Project Management Professor: HÉCTOR | |Authenticated by: Mariah Castano | [...] is no pericardial effusion. | + -----+ documented in this encounter Visit Diagnoses Not on filedocumented in this encounter"
--- OUTSIDE RECORDS SUMMARY | ~2019-03-27 | XMS | Encounter Summary ---
Demographics + + + | Address | [address] | | | [place] [address] | + + + | Home Phone | | + + + | Preferred Language | Unknown | + + + | Marital Status | | + + + | Church Affiliation | PRO | + + + | Race | or | + + + | Ethnic Group | Not or | + + + Author + + + | Author | [facility] | + + + | Organization | [facility] | + + + | Address | Unknown | + + + | Phone | Unavailable | + + + Support + + + + + | Name | Relationship | Address | Phone | + + + + + | Conrad | ECON | [address] | | | [place] | | [place] | | | | | [address] | | + + + + + Care Team Providers + +------+ + | Care Comber Operator Name | Role | Phone | + +------+ + | Omari Shabazz | PCP | | + +------+ + Encounter Details +--------+ + + + + | Date | Type | Department | Care Team | Description | +--------+ + + + + | 09/07/ | Documentati | [facility]ology at | [facility], | | | 2014 | on | [facility] | [address] | | | | | [address] | [address] | | | | | Loop Mailcode: [id number] | [place] [address] | | | | | [facility] | [phone] | | | | | [facility], [address] | | | | | | [place], [place] | | | | | | [address] | | | | | | [phone] | | | +--------+ + + + [...]
--- OUTSIDE RECORDS SUMMARY | ~2019-03-27 | XMS | Encounter Summary ---
Demographics + + + | Address | [address] | | | [place] [address] | + + + | Home Phone | | + + + | Preferred Language | Unknown | + + + | Marital Status | | + + + | Adventism Affiliation | PRO | + + + | Race | or | + + + | Ethnic Group | Not or | + + + Author + + + | Author | [facility] | + + + | Organization | [facility] | + + + | Address | Unknown | + + + | Phone | Unavailable | + + + Support + + + + + | Name | Relationship | Address | Phone | + + + + + | Conrad | ECON | [address] | | | Loraine | | [place] | | | | | [address] | | + + + + + Care Team Providers + +------+ + | Care Communications Planner Name | Role | Phone | + [...] ,PhD Barrera | | | | | ([facility] | [address] Parks | Allergy | | | | | Procedures | Rd | Asthma | | | | | CONSULT TO | [place], [place] | Dermatology | | | | | DERM & DERM | [address] | [address] | | | | | SURGERY | Phone: | [address] | | | | | | [phone] | [address] | | | | | | Fax: | [place], [place] | | | | | | [phone] | [address] Phone: | | | | | | | [phone] | | | | | | | Fax: | | | | | | | [phone] | +--------+--------+ + + + + Consultation [...] | | | deficiency | Rd | [place], [place] | | | | | ([facility]) | [facility] [place] | [address] | | | | | Rhabdomyolys | [address] | | | | | | is | Phone: | | | | | | Procedures | [phone] | | | | | | CONSULT TO | Fax: | | | | | | NEUROMUSCULA | [phone] | | | | | | R [...] | Psoriatic | Epic Dept | [address] | | | | | arthropathy | | Pavilion | | | | | ([facility]) | | Loop | | | | | | | Mailcode: | | | | | | | OP09 | | | | | | | Physician's | | | | | | | Pavilion, 4th | | | | | | | Floor | | | | | | | [place], [place] | | | | | | | [address] | | | | | | | Phone: | | | | | | | [phone] | | | | | | | Fax: | | | | | | | [phone] | +--------+--------+ + + + + Encounter Details +--------+---------+ + + + | Date | Type | Department | Care Team | Description | +--------+---------+ + + + | 02/04/ | Office | Rheumatology at | Chula Ayala, | Carnitine | | 2012 | Visit | [facility]icians [facility] | [address] | 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 female referred here for management of PsA. 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 HPI: For PsO and PsA she Was seeing financial operations analyst in [place]. Dr Chuck Glover. PsO started at ag e 25 secondary to a stress. Over extremities and trunk. Tried laser, MTX, topicals, clobex e tc. Breaks in between for six pregnancies. Then enbrel worked for 2 yrs and then stopped wor monserrat and humira was started about 3 yrs. Then moved to [facility] 2 yrs ago who has been refi [...] valve with a slight murmur. 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 Asx Neuromuscular consult note from dr Arnulfo [...] 08/[address] Monae at [facility]. They concurred that CPT 2 def seemed less likely because it was only a partial deficiency or carrier status, further s upported by normal CPT/ citrate synthase ratio. The comprehensive panel on the muscle biopsy was not done to r/o other metabolic myopathies/ mitochondrial diseases. They wanted her to be seen by Dr Donn Ramirez however her [facility] doesn't refer to Dr Ramirez hence she needs a referral to [facility] Neuromuscular clinic. 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 In 2007 one morning was wobbly and had myalgias which worsened, couldn't walk at all, [place] was about [address]. Since then has had recurrent rhabdomyoly sis [...] de ficiency. Will seek neuromuscular opinion at [facility] to clarify this issues with Univ [...] was studied in a recent RCT, [facility] November 2009), walking, yoga, pilates, swimming, water [...] in 3 mths I spent 60 minutes vayg-ib-xlsg with the patient with over 50% in counseling the patient re garding her disease. Chula Vargas MD Instructor, Division of Arthritis and Rheumatic Diseases Pager- [phone] Mail Code OP-09 [address] [place] [address] documented in this encount er Plan of [...] | | | | | in the Tink | | | | | | LaboratoryTest Directory | | | | | | ([employer]).Performed | | | | | | by [facility] | | | | | | Laboratories,[address] | | | | | | [place] [address] | | | | | | [phone].Pulmocidelab. | | | | | | [facility], Nadir Sung, | | | | | | Beth FELIX. Director | | | | + + + + + + + + | Specimen | + + | Blood - Blood | + + + + + + + | Performing | Address | City/State/Zipcode | Phone Number | | Organization | | | | + + + + + | [facility] | [address] | [place], [place] | | | UN[facility] | | [address] | | + + + + + [...] + + | [facility] | [address] | [place] [address] | | | SERVICES, CORE | PARK [...] [facility] | [address] | [place] [address] | | | SERVICES, SPECIAL | [address] | | | | IMM + [...] | | AG, SERUM | | | [facility] | | + + + + + + + + | Specimen | + + | Blood - Blood | + + + + + + + | Performing | Address | City/State/Zipcode | Phone Number | | Organization | | | | + + + + + | [facility] | [address] | [place] [address] | | | [place] | | | [...] + | [facility] | [address] | [place] [address] | | | [place] | | | | + + + [...] | | | LABORATORY | | | ZIM[facility]AN | | | SERVICES, | | | [...] | | Interpretive Information: <60 mL/min/1.73 sq m | SERVICES, CORE | | Chronic Kidney Disease <15 mL/min/1.73 sq m | | | Kidney Failure Estimated GFR greater that 60 mL/min/1.73 sq m is of | | | limited clinical value. The MDRD equation is not valid in the | | | following situations: - Patients under 18 years of age - Severe | | | malnutrition or obesity - Vegetarian diet - Rapidly changing kidney | | | function New reference range effective 2012 for Total proteins | | | performed in Core Lab only. | | + + + + + + + + | Performing | Address | City/State/Zipcode | Phone Number | | Organization | | | | + + + + + | [facility] | [address] | [place] [address] | | | SERVICES, CORE | PARK [...] + | [facility] | [address] | [place] [address] | | | [place] | | | [...] [facility] | [address] | [place] [address] | | | KO, ANDREW | [address] | | | + [...]
--- OUTSIDE RECORDS SUMMARY | ~2019-03-27 | XMS | Encounter Summary ---
Demographics + + + | Address | [address] | | | [place] [address] | + + + | Home Phone | | + + + | Preferred Language | Unknown | + + + | Marital Status | | + + + | Muslim Affiliation | Unknown | + + + | Race | Unknown | + + + | Ethnic Group | Unknown | + + + Author + + + | Author | [facility] | | | and [place] | + + + | Organization | [facility] | | | and [place] | + + + | Address | Unknown | + + + | Phone | Unavailable | + + + Care Team Providers + +------+ + | Care Turner In Name | Role | Phone | + [...] | | | | CENTER [address] | [place] | laterality, initial | | | | [place] | [address] | encounter (Primary | | | | [address] | | Dx) | | | | [phone] | | | +--------+ + + + [...] be sent through Care Everywhere.LOWER EXTREMITY CONTUSION (MOROCCAN)documented in this encounter Medications at Time of [...] [address] | [place] | [phone] | | [facility] | | [address] | | | - LABORATORY | | [...] [address] | [place] | [phone] | | [facility] | | [address] | | | - LABORATORY | | [...] + | [facility] | [address] | [place] | [phone] | | [facility] | | [address] | | | - LABORATORY | | [...] mL/min/1.73m2 | Claus SARA | | | MALTESE | RATE,ESTIMATED | | MEDICAL | | | | mL/min/1.27t9Woxs than | | CENTER - | | [...] ST. | [address] | [place], [place] | [phone] | | [facility] | | [address] | | | - LABORATORY | | [...] [address] | [place] | [phone] | | [facility] | | [address] | | | - LABORATORY | | [...] | | | | | | [facility] | | | | | | MEDICAL [...] [address] | [place] | [phone] | | [facility] | | [address] | | | - LABORATORY | | [...]
--- OUTSIDE RECORDS SUMMARY | ~2019-03-27 | XMS | Encounter Summary ---
Demographics + + + | Address | [address] | | | [place] [address] | + + + | Home Phone | | + + + | Preferred Language | Unknown | + + + | Marital Status | | + + + | Buddhist Affiliation | PRO | + + + | Race | or | + + + | Ethnic Group | Not or | + + + Author + + + | Author | [facility] | + + + | Organization | [facility] | + + + | Address | Unknown | + + + | Phone | Unavailable | + + + Support + + + + + | Name | Relationship | Address | Phone | + + + + + | Conrad | ECON | [address] | | | [place] | | [place] | | | | | [address] | | + + + + + Care Team Providers + +------+ + | Care Guest Experience Representative Name | Role | Phone | + [...] | Other | | 2017 | | [facility] & | | ([facility]) | | | | Healing [facility] | | | | | | Stevenson Crouch Mailcode: | | | | | | [facility] | | | | | | Health and Healing, | | | | | | Building | | | | | | Floor [place], [place] | | | | | | [address] | | | | | | [phone] | | | +--------+ + + + [...]
--- OUTSIDE RECORDS SUMMARY | ~2019-03-27 | XMS | Encounter Summary ---
Demographics + + + | Address | [address] | | | [place] [address] | + + + | Home Phone | | + + + | Preferred Language | Unknown | + + + | Marital Status | | + + + | Scientologist Affiliation | PRO | + + + | Race | or | + + + | Ethnic Group | Not or | + + + Author + + + | Author | [facility] | + + + | Organization | [facility] [employer] [facility] | + + + | Address | Unknown | + + + | Phone | Unavailable | + + + Support + + + + + | Name | Relationship | Address | Phone | + + + + + | Conrad | ECON | [address] | | | [place] | | [place] | | | | | [address] | | + + + + + Care Team Providers + +------+ + | Care Mortgage Consultant Name | Role | Phone | + [...] [address] | | | | | [address] | [address] | | | | | Loop Mailcode: OP09 | [place] [address] | | | | | Physician's | [phone] | | | | | Cathy, 4th Floor | | | | | | [place], [place] | | | | | | [address] | | | | | | [phone] | | | +--------+ + + + [...]
--- OUTSIDE RECORDS SUMMARY | ~2019-03-27 | XMS | Encounter Summary ---
Demographics + + + | Address | [address] | | | [place] [address] | + + + | Home Phone | | + + + | Preferred Language | Unknown | + + + | Marital Status | | + + + | Taoist Affiliation | PRO | + + + | Race | or | + + + | Ethnic Group | Not or | + + + Author + + + | Author | [facility] | + + + | Organization | [facility] [employer] [facility] | + + + | Address | Unknown | + + + | Phone | Unavailable | + + + Support + + + + + | Name | Relationship | Address | Phone | + + + + + | Conrad | ECON | [address] | | | [place] | | [place] | | | | | [address] | | + + + + + Care Team Providers + +------+ + | Care Gang Head Saw Operator Name | Role | Phone | [...] | | | | CONSULT TO | [place], [place] | Dermatology | | | | | DERM & DERM | [address] | [address] | | | | | SURGERY | Phone: | [email or web address] | | | | | | [phone] | [address] | | | | | | Fax: | [place], [place] | | | | | | [phone] | [address] Phone: | | | | | | | [phone] | | | | | | | Fax: | | | | | | | [phone] | +--------+--------+ + + + + Consultation [...] | | | deficiency | Rd | [place], [place] | | | | | [facility] | [facility] [place] | [address] | | | | | Rhabdomyolys | [address] | | | | | | is | Phone: | | | | | | Procedures | [phone] | | | | | | CONSULT TO | Fax: | | | | | | NEUROMUSCULA | [phone] | | | | | | R [...] | | | | | | | [place], [place] | | | | | | | [address] | | | | | | | Phone: | | | | | | | [phone] | | | | | | | Fax: | | | | | | | [phone] | +--------+--------+ + + + + Encounter Details +--------+---------+ + + + | Date | Type | Department | Care Team | Description | +--------+---------+ + + + | 02/04/ | Office | Rheumatology at | Chula Ayala, | [place] | | 2012 | Visit | Physicians Cathy | [address] | 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 female referred here for management of PsA. 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 HPI: For PsO and PsA she Was seeing optoelectronics engineer in [place]. Dr Chuck Glover. PsO started at ag e 25 secondary to a stress. Over extremities and trunk. Tried laser, MTX, topicals, clobex e tc. Breaks in between for six pregnancies. Then enbrel worked for 2 yrs and then stopped wor monserrat and humira was started about 3 yrs. Then moved to [facility] 2 yrs ago who has been [...] valve with a slight murmur. 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 Asx Neuromuscular consult note from dr Arnulfo [...] he spoke to Dr Monae at [facility]. They concurred that CPT 2 def seemed less likely because it was only a partial deficiency or carrier status, further s upported by normal CPT/ citrate synthase ratio. The comprehensive panel on the muscle biopsy was not done to r/o other metabolic myopathies/ mitochondrial diseases. They wanted her to be seen by Dr Donn Ramirez however her [facility] doesn't refer to Dr Ramirez hence she needs a referral to [facility] Neuromuscular clinic. 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 In 2007 one morning was wobbly and had myalgias which worsened, couldn't walk at all, [place] was about [address]. Since then has had recurrent rhabdomyoly sis [...] ficiency. Will seek neuromuscular opinion at [facility] to clarify this issues with [...] (which was studied in a recent RCT, [facility] November 2009), walking, yoga, pilates, swimming, water [...] in 3 mths I spent 60 minutes asqd-iw-mgyq with the patient with over 50% in counseling the patient re garding her disease. Chula Vargas MD Instructor, Division of Arthritis and Rheumatic Diseases Pager- [phone] Mail Code OP-09 [address] [place] [address] documented in this encount er Plan of [...] | | | | | in the [employer] | | | | | | LaboratoryTest Directory | | | | | | ([employer]).Performed | | | | | | by [facility] | | | | | | Laboratories,[address] | | | | | | [place] [address] | | | | | | [phone].DirectPointelab. | | | | | | [facility], Nadir Sung, | | | | [...] [facility] | [address] | [place], [place] | | | [facility] | | [address] | | + + + + + [...] [facility] | [address] | [place] [address] | | | SERVICES, CORE | PARK [...] [facility] | [address] | [place] [address] | | | SERVICES, SPECIAL | JENNIFER [...] | | AG, SERUM | | | [facility] | | + + + + + + + + | Specimen | + + | Blood - Blood | + + + + + + + | Performing | Address | City/State/Zipcode | Phone Number | | Organization | | | | + + + + + | [facility] | [address] | [place] [address] | | | [place] | | | [...] + | [facility] | [address] | [place] [address] | | | [place] | | | | + + + [...] | | | LABORATORY | | | TAIWANESE | | | SERVICES, | | | [...] | + + + + + | [facility] | [address] | [place] [address] | | | SERVICES, CORE | PARK [...] + | [facility] | [address] | [place] [address] | | | [place] | | | [...] [facility] | [address] | [place] [address] | | | KO, ANDREW | JENNIFER [...]
--- OUTSIDE RECORDS SUMMARY | ~2019-03-27 | XMS | Encounter Summary ---
Demographics + + + | Address | [address] | | | [place] [address] | + + + | Home Phone | | + + + | Preferred Language | Unknown | + + + | Marital Status | | + + + | Scientologist Affiliation | Unknown | + + + | Race | Unknown | + + + | Ethnic Group | Unknown | + + + Author + + + | Author | [facility] | | | and [place] | + + + | Organization | [facility] | | | and [place] | + + + | Address | Unknown | + + + | Phone | Unavailable | + + + Care Team Providers + +------+ + | Care Court Worker Name | Role | Phone | + +------+ + | Omari Shabazz PA-C | PCP | | + +------+ + Reason for Visit +--------+ + | Reason | Comments | +--------+ + | Other | | +--------+ + Encounter Details +--------+ + + + + | Date | Type | Department | Care Team | Description | +--------+ + + + + | 02/12/ | Telephone | [facility] | Rober Iraheta MD [address] | Other | | 2011 | | NEUROLOGY [place] | [address] | | | | | [address] [facility], | [address] | | | | | RADHA S[address] [facility] [facility] [address] | | | | | [place] [address] | [phone] | | | | | [phone] | | | +--------+ + + + [...]
--- OUTSIDE RECORDS SUMMARY | ~2019-03-27 | XMS | Encounter Summary ---
Demographics + + + | Address | [address] | | | [place] [address] | + + + | Home Phone | | + + + | Preferred Language | Unknown | + + + | Marital Status | | + + + | Catholic Affiliation | PRO | + + + | Race | or | + + + | Ethnic Group | Not or | + + + Author + + + | Author | [facility] [employer] [facility] | + + + | Organization | [facility] [facility] | + + + | Address | Unknown | + + + | Phone | Unavailable | + + + Support + + + + + | Name | Relationship | Address | Phone | + + + + + | Conrad | ECON | [address] | | | [place] | | [place] | | | | | [address] | | + + + + + Care Team Providers + +------+ + | Care Kitchen Assistant Name | Role | Phone | [...] Rd | | | | | | [place], [place] | | | | | | [address] | | | +--------+ + + + [...]
--- OUTSIDE RECORDS SUMMARY | ~2019-03-27 | XMS | Encounter Summary ---
Demographics + + + | Address | [address] | | | [place] [address] | + + + | Home Phone | | + + + | Preferred Language | Unknown | + + + | Marital Status | | + + + | Congregational Affiliation | PRO | + + + | Race | or | + + + | Ethnic Group | Not or | + + + Author + + + | Author | [facility] | + + + | Organization | [facility] | + + + | Address | Unknown | + + + | Phone | Unavailable | + + + Support + + + + + | Name | Relationship | Address | Phone | + + + + + | Conrad | ECON | [address] | | | Baron | | [place] | | | | | [address] | | + + + + + Care Team Providers + +------+ + | Care Instructional Writer Name | Role | Phone | + [...] | Rheumatology | | | | | [address] | | | | | | Loop Mailcode: PV35 | | | | | | Physician's | | | | | | [place], | | | | | | [place] [address] | | | | | | [phone] | | | +--------+ + + + [...]
--- OUTSIDE RECORDS SUMMARY | ~2019-03-27 | XMS | Clinical Summary ---
Demographics + + + | Address | [address] | | | [place] [address] | + + + | Home Phone | | + + + | Preferred Language | Unknown | + + + | Marital Status | | + + + | Tenriism Affiliation | PRO | + + + [...] + + | Conrad | ECON | [address] | | | [place] | | [place] | | | | | [address] | | + + + + + Care Team Providers + +------+ + | Care Air Brush Decorator Name | Role | Phone | + +------+ + | Omari Shabazz | PCP | | + +------+ + Source Comments JEANLENIN is fully live on both EpicCare Ambulatory and EpicCare InPatient.[facility] Allergies + + + + + [...] | | + +--------+ +--------+ +---------+--------+ | [facility] | [facility]AN | xxxxxxxxx | Effect | | | [...] Person | Self | [birth year] | [address] | | | joseph/Thee | | 1971 | [phone] | [place] [address] | | | karri | | | 3 (Home) | | + +--------+ +--------+ + +
--- OUTSIDE RECORDS SUMMARY | ~2019-03-27 | XMS | Encounter Summary ---
Demographics + + + | Address | [address] | | | [place] [address] | + + + | Home Phone | | + + + | Preferred Language | Unknown | + + + | Marital Status | | + + + | Presybeterian Affiliation | Unknown | + + + | Race | Unknown | + + + | Ethnic Group | Unknown | + + + Author + + + | Author | [facility] | | | and [place] | + + + | Organization | [facility] | | | and [place] | + + + | Address | Unknown | + + + | Phone | Unavailable | + + + Care Team Providers + +------+ + | Care Healthcare Technician Name | Role | Phone | [...] | +--------+ + + + + | 02/13/ | Telephone | [facility] | Rober Iraheta MD [address] | Other | | 2011 | | NEUROLOGY [place] | [address] | | | | | [address] [facility], | [address] | | | | | RADHA SINHA [address] [facility] [address] | | | | | [place] [address] | [phone] | | | | | [phone] | | | +--------+ + + + [...]
--- OUTSIDE RECORDS SUMMARY | ~2019-03-27 | XMS | Encounter Summary ---
Demographics + + + | Address | [address] | | | [place] [address] | + + + | Home Phone | | + + + | Preferred Language | Unknown | + + + | Marital Status | | + + + | Yarsani Affiliation | Unknown | + + + | Race | Unknown | + + + | Ethnic Group | Unknown | + + + Author + + + | Author | [facility] | | | and [place] | + + + | Organization | [facility] | | | and [place] | + + + | Address | Unknown | + + + | Phone | Unavailable | + + + Care Team Providers + +------+ + | Care Photograph Printer Name | Role | Phone | + +------+ + | Omari Shabazz PA-C | PCP | | + +------+ + Encounter Details +--------+ + + + + | Date | Type | Department | Care Team | Description | +--------+ + + + + | 02/21/ | [facility] | [facility] | Derek Urena | | | 2012 | Encounter | MED CTR EMERGENCY | Fernando Beatty MD | | | | | CENTER [address] | [address] | | | | | [place] | [place] | | | | | [address] | [address] | | | | | [phone] | | | +--------+ + + + [...]
--- OUTSIDE RECORDS SUMMARY | ~2019-03-27 | XMS | Encounter Summary ---
Demographics + + + | Address | [address] | | | [place] [address] | + + + | Home Phone | | + + + | Preferred Language | Unknown | + + + | Marital Status | | + + + | Samaritan Affiliation | PRO | + + + | Race | or | + + + | Ethnic Group | Not or | + + + Author + + + | Author | [facility] | + + + | Organization | [facility] [employer] [facility] | + + + | Address | Unknown | + + + | Phone | Unavailable | + + + Support + + + + + | Name | Relationship | Address | Phone | + + + + + | Conrad | ECON | [address] | | | Loraine | | [place] | | | | | [address] | | + + + + + Care Team Providers + +------+ + | Care Map Mounter Name | Role | Phone | + +------+ + | Omari Shabazz | PCP | | + +------+ + Encounter Details +--------+------+ + + + | Date | Type | Department | Care Team | Description | +--------+------+ + + + | 02/04/ | Lab | Laboratory, | | Psoriatic arthritis | | 2012 | | Specimen Collection | | ([facility]); Carnitine | | | | at [facility] 3rd Floor | | palmitoyltransferase | | | | [address] | | II deficiency (HCC) | | | | [address] [place], [place] | | | | | | [address] | | | | | | [phone] | | | +--------+------+ + + + [...] + + + + + | [facility] | [address] | [place] [address] | | | SERVICES, CORE | PARK [...] Directory | | | | | | ([employer]).Performed | | | | | | by [facility] | | | | | | Laboratories,[address] [facility] | | | | | | [place] [address] | | | | | | [phone] | | | | | | [facility], Nadir Sung, | | | [...] [facility] | [address] | [place], [place] | | | UNIV PTH - INTFC | | [address] | | + + + + + [...] [facility] | [address] | [place] [address] | | | SERVICES, CORE | PARK [...] + + + + + | [facility] | [address] | [place] [address] | | | SERVICES, SPECIAL | PARK [...] + | [facility] - | [address] | [place] [address] | | | [place] | | | | + + + [...] + | [facility] - | [address] | [place] [address] | | | [place] | | | | + + + [...] | | | LABORATORY | | | ALGERIAN | | | SERVICES, | | | [...] + + + + + | [facility] | [address] | [place] [address] | | | SERVICES, CORE | PARK [...] + | [facility] - | [address] | [place] [address] | | | [place] | | | [...] + + + + + | JO[facility] | [address] | [place] [address] | | | KO, ANDREW | [address] | | | + + + + + documented in this encounter Visit Diagnoses + + | Diagnosis | + + | Psoriatic arthritis (HCC) Psoriatic arthropathy | + + | 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
--- OUTSIDE RECORDS SUMMARY | ~2019-03-27 | XMS | Encounter Summary ---
Demographics + + + | Address | [address] | | | [place] [address] | + + + | Home Phone | | + + + | Preferred Language | Unknown | + + + | Marital Status | | + + + | Taoism Affiliation | PRO | + + + | Race | or | + + + | Ethnic Group | Not or | + + + Author + + + | Author | [facility] [employer] [facility] | + + + | Organization | [facility] [employer] [facility] | + + + | Address | Unknown | + + + | Phone | Unavailable | + + + Support + + + + + | Name | Relationship | Address | Phone | + + + + + | Conrad | ECON | [address] | | | Loraine | | [place] | | | | | [address] | | + + + + + Care Team Providers + +------+ + | Care Hydrogen Power Plant Engineer Name | Role | Phone | [...] | Other | | 2017 | | [facility] & | | ([facility]) | | | | Healing [address] | | | | | | [place] Mailcode: | | | | | | [facility] | | | | | | Health and Healing, | | | | | | Building | | | | | | Floor [place], [place] | | | | | | [address] | | | | | | [phone] | | | +--------+ + + + [...]
--- OUTSIDE RECORDS SUMMARY | ~2019-03-27 | XMS | Encounter Summary ---
Demographics + + + | Address | [address] | | | [place] [address] | + + + | Home Phone | | + + + | Preferred Language | Unknown | + + + | Marital Status | | + + + | Taoist Affiliation | Unknown | + + + | Race | Unknown | + + + | Ethnic Group | Unknown | + + + Author + + + | Author | [facility] | | | and [place] | + + + | Organization | [facility] | | | and [place] | + + + | Address | Unknown | + + + | Phone | Unavailable | + + + Care Team Providers + +------+ + | Care Pan Devulcanizer Helper Name | Role | Phone | [...] (Telephone | | 2011 | | [facility] [place] | [address] | call to patient on | | | | [address] [facility], | [address], | 02/11/12 @ 5:30pm to | | | | RADHA SINHA [address] | [place] [address] | schedule | | | | [place] [address] | [phone] | consultation with | | | | [phone] | | Dr. Iraheta. Left voice | [...]
--- OUTSIDE RECORDS SUMMARY | ~2019-03-27 | XMS | Encounter Summary ---
Demographics + + + | Address | [address] | | | [place] [address] | + + + | Home Phone | | + + + | Preferred Language | Unknown | + + + | Marital Status | | + + + | Mosque Affiliation | PRO | + + + | Race | or | + + + | Ethnic Group | Not or | + + + Author + + + | Author | [facility] | + + + | Organization | [facility] | + + + | Address | Unknown | + + + | Phone | Unavailable | + + + Support + + + + + | Name | Relationship | Address | Phone | + + + + + | Conrad | ECON | [address] | | | Baron | | [place] | | | | | [address] | | + + + + + Care Team Providers + +------+ + | Care Data Communications Engineer Name | Role | Phone | [...] | | | | | | [place], | | | | | | [place] [address] | | | | | | [phone] | | | +--------+ + + + [...]
--- OUTSIDE RECORDS SUMMARY | ~2019-03-27 | XMS | Encounter Summary ---
Demographics + + + | Address | [address] | | | [place] [address] | + + + | Home Phone [...] + | Author | [facility] | + + + | Organization | [facility] | + + + | Address | Unknown | + + + | Phone | Unavailable | + + + Support + + + + + | Name | Relationship | Address | Phone | + + + + + | Conrad | ECON | [address] | | | Loraine | | [place] | | | | | [address] | | + + + + + Care Team Providers + +------+ + | Care [employer] Name | Role | Phone | + [...] [address] | | | | | | [place], [place] | | | | | | [address] | | | +--------+ + + + [...]
--- OUTSIDE RECORDS SUMMARY | ~2019-03-27 | XMS | Encounter Summary ---
Demographics + + + | Address | [address] | | | [place] [address] | + + + | Home Phone [...] + + | Author | [facility] | + + + | Organization | [facility] | + + + | Address | Unknown | + + + | Phone | Unavailable | + + + Support + + + + + | Name | Relationship | Address | Phone | + + + + + | Conrad | ECON | [address] | | | Loraine | | [place] | | | | | [address] | | + + + + + Care Team Providers + +------+ + | Care Paratransit Operator Name | Role | Phone | + +------+ + | Omari Shabazz | PCP | | + +------+ + Encounter Details +--------+ + + + + | Date | Type | Department | Care Team | Description | +--------+ + + + + | 08/04/ | Abstract | Neurology at | Clinic, Neurology | | | 2013 | | [facility] & | | | | | | Healing [address] | | | | | | [address] Mailcode: | | | | | | CH[address] | | | | | | Health and Healing, | | | | | | [facility] | | | | | | [place], [place] | | | | | | [address] | | | | | | [phone] | | | +--------+ + + + [...]
--- OUTSIDE RECORDS SUMMARY | ~2019-03-27 | XMS | Encounter Summary ---
Demographics + + + | Address | [address] | | | [place] [address] | + + + | Home Phone | | + + + | Preferred Language | Unknown | + + + | Marital Status | | + + + | Jehovah'S Witness Affiliation | Unknown | + + + | Race | Unknown | + + + | Ethnic Group | Unknown | + + + Author + + + | Author | [facility] | | | and [place] | + + + | Organization | [facility] | | | and [place] | + + + | Address | Unknown | + + + | Phone | Unavailable | + + + Care Team Providers + +------+ + | Care Infant Room Teacher Name | Role | Phone | [...] | | [address] | [place] [address] | | | | | [address] | [facility] | | | | | [place], [place] | [place] [address] | | | | | [address] | [phone] | | | | | [phone] | | | +--------+ + + + [...] TR Vmax: 2.22 m/s | | | Parts Person: HÉCTOR Authenticated by: Mariah Castano Report Date/Time: | [...] cmLVIDd: 4.38 cmLVPWd: 0.78 cmLVOT Area: 3.54 os0KDSL Diam: | | 2.12 cm%FS: 30.20 %EF(Teich): [...] (A-L): 22.98 ml/m2LAAs | | A2C: 17.04 [id number] A-L A2C: 53.44 mlLALs A2C: 4.61 cmLAAs A4C: 9.94 ow5YIPPN | | A-L A4C: 21.18 mlLALs A4C: 3.96 cmRAAs: 13.03 [id number] A-L: 31.45 mlRAESV MOD: | | 30.49 mlRALs: 4.58 cmAo Diam: 3.13 cmLA Diam: 2.92 cmLA/Ao: 0.93TAPSE: 3.25 | | cmAV maxP.89 mmHgAV meanP.27 mmHgAV Vmax: 1.72 m/Kiana Vmean: 1.15 m/Kiana | | VTI: 37.64 cmAVA Vmax: 1.95 cm2AVA (VTI): 2.04 aq8DHDU Vmax: 0.00 cm2/m2AVAI | | (VTI): 0.00 cm2/m2LVOT maxP.63 mmHgLVOT meanP.10 mmHgLVSI Dopp: 48.75 | | ml/m2LVSV Dopp: 77.02 mlLVOT Vmax: 0.95 m/sLVOT Vmean: 0.69 m/sLVOT VTI: 21.73 | | cmMV A Yordy: 1.05 m/sMV DecT: 242.45 msMV E Yordy: 1.27 m/sMV E/A Ratio: 1.21MV | | PHT: 70.31 msMVA By PHT: 3.12 yp0Sdseoh e': 0.07 m/sSeptal E/e': 17.12Lateral | | e': 0.12 m/sLateral E/e': 10.22PV maxP.29 mmHgPV Vmax: 0.90 m/sRAP: 5 | | mmHgRVSP: 24.76 mmHgTR maxP.76 mmHgTR Vmax: 2.22 m/s Parts Person: | | RKAuthenticated by: Mariah [facility] Date/Time: 11-19-2017 19:17:47 IMPRESSION: 1. | [...] |TR Vmax: 2.22 m/s | | | |Parts Person: HÉCTOR | |Authenticated by: Mariah Castano | [...]
--- OUTSIDE RECORDS SUMMARY | ~2019-03-27 | XMS | Encounter Summary ---
Demographics + + + | Address | [address] | | | [place] [address] | + + + | Home Phone | | + + + | Preferred Language | Unknown | + + + | Marital Status | | + + + | Rastafarian Affiliation | PRO | + + + | Race | or | + + + | Ethnic Group | Not or | + + + Author + + + | Author | [facility] [employer] [facility] | + + + | Organization | [facility] | + + + | Address | Unknown | + + + | Phone | Unavailable | + + + Support + + + + + | Name | Relationship | Address | Phone | + + + + + | Conrad | ECON | [address] | | | [place]aine | | [place] | | | | | [address] | | + + + + + Care Team Providers + +------+ + | Care Business Objects Name | Role | Phone | + [...] [address] | | | | | | [place], [place] | | | | | | [address] | | | +--------+ + + + [...]
--- OUTSIDE RECORDS SUMMARY | ~2019-03-27 | XMS | Encounter Summary ---
Demographics + + + | Address | [address] | | | [place] [address] | + + + | Home Phone | | + + + | Preferred Language | Unknown | + + + | Marital Status | | + + + | Yarsani Affiliation | PRO | + + + | Race | or | + + + | Ethnic Group | Not or | + + + Author + + + | Author | [facility] | + + + | Organization | [facility] [employer] [facility] | + + + | Address | Unknown | + + + | Phone | Unavailable | + + + Support + + + + + | Name | Relationship | Address | Phone | + + + + + | Conrad | ECON | [address] | | | [place]aine | | [place] | | | | | [address] | | + + + + + Care Team Providers + +------+ + | Care Installer Inspector Final Name | Role | Phone | + [...] [address] | | | | | | [place], [place] | | | | | | [address] | | | +--------+ + + + [...]
--- OUTSIDE RECORDS SUMMARY | ~2019-03-27 | XMS | Encounter Summary ---
Demographics + + + | Address | [address] | | | [place] [address] | + + + | Home Phone [...] + + + | Author | [facility] | + + + | Organization | [facility] | + + + | Address | Unknown | + + + | Phone | Unavailable | + + + Support + + + + + | Name | Relationship | Address | Phone | + + + + + | Conrad | ECON | [address] | | | Loraine | | [place] | | | | | [address] | | + + + + + Care Team Providers + +------+ + | Care Side Guider Name | Role | Phone | + +------+ + | Omari Shabazz | PCP | | + +------+ + Encounter Details +--------+ + + + + | Date | Type | Department | Care Team | Description | +--------+ + + + + | 08/04/ | Abstract | Neurology at | Clinic, Neurology | | | 2013 | | [facility] & | | | | | | Healing [address] | | | | | | [address] Mailcode: | | | | | | CH8C [facility] | | | | | | Health and Healing, | | | | | | [facility] | | | | | | [place], [place] | | | | | | [address] | | | | | | [phone] | | | +--------+ + + + [...]
--- OUTSIDE RECORDS SUMMARY | ~2019-03-27 | XMS | Encounter Summary ---
Demographics + + + | Address | [address] | | | [place] [address] | + + + | Home Phone | | + + + | Preferred Language | Unknown | + + + | Marital Status | | + + + | Nondenominational Affiliation | PRO | + + + | Race | or | + + + | Ethnic Group | Not or | + + + Author + + + | Author | [facility] | + + + | Organization | [facility] | + + + | Address | Unknown | + + + | Phone | Unavailable | + + + Support + + + + + | Name | Relationship | Address | Phone | + + + + + | Conrad | ECON | [address] | | | [place]aine | | [place] | | | | | [address] | | + + + + + Care Team Providers + +------+ + | Care Metal Drill Press Operator Name | Role | Phone | + +------+ + | Omari Shabazz | PCP | | + +------+ + Encounter Details +--------+------+ + + + | Date | Type | Department | Care Team | Description | +--------+------+ + + + | 02/04/ | Lab | Laboratory, | | Psoriatic arthritis | | 2012 | | Specimen Collection | | ([facility]); 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 | | | | | | st. [...] [facility] | [address] | [place], [place] | | | UNIV PTH - INTFC | | [address] | | + + + + + [...] [facility] | [address] | [place] [address] | | | SERVICES, CORE | PARK [...] | + + + + + | [facility] | [address] | [place] [address] | | | SERVICES, SPECIAL | PARK [...] + | [facility] - | [address] | [place] [address] | | | [place] | | | | + + + [...] + | [facility] - | [address] | [place] [address] | | | [place] | | | | + + + [...] | | | LABORATORY | | | COLOM[place]AN | | | SERVICES, | | | [...] | + + + + + | [facility] | [address] | [place] [address] | | | SERVICES, CORE | PARK [...] + | [facility] - | [address] | [place] [address] | | | [place] | | | [...] JO[facility] | [address] | [place] [address] | | | KO, ANDREW | [address] | | | + + + + + documented in this encounter Visit Diagnoses + + | Diagnosis | + + | Psoriatic arthritis (HCC) Psoriatic arthropathy | + + | 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
--- OUTSIDE RECORDS SUMMARY | ~2019-03-27 | XMS | Encounter Summary ---
Demographics + + + | Address | [address] | | | [place] [address] | + + + | Home Phone | | + + + | Preferred Language | Unknown | + + + | Marital Status | | + + + | Catholic Affiliation | Unknown | + + + | Race | Unknown | + + + | Ethnic Group | Unknown | + + + Author + + + | Author | [facility] | | | and [place] | + + + | Organization | [facility] | | | and [place] | + + + | Address | Unknown | + + + | Phone | Unavailable | + + + Care Team Providers + +------+ + | Care Resist Coater Developer Name | Role | Phone | + [...] + + | 02/13/ | Telephone | [facility] | Rober Iraheta MD [address] | Other | | 2011 | | NEUROLOGY [place] | [address] | | | | | [address] [facility], | [address] | | | | | RADHA SINHA [address] [facility] [address] | | | | | [place] [address] | [phone] | | | | | [phone] | | | +--------+ + + + [...]
--- OUTSIDE RECORDS SUMMARY | ~2019-03-27 | XMS | Clinical Summary ---
Demographics + + + | Address | [address] | | | [place] [address] | + + + | Home Phone | | + + + | Preferred Language | Unknown | + + + | Marital Status | | + + + | Sikhism Affiliation | Unknown | + + + | Race | Unknown | + + + | Ethnic Group | Unknown | + + + Author + + + | Author | [facility] [employer] (Historical as of | | | 11-28-18) | + + + | Organization | [facility] [employer] (Historical as of | | | 11-28-18) [...] Team Providers + +------+ + | Care English Faculty Member Name | Role | Phone | + [...] +------+-------+ + | MEDICAID | MEDICA | [id number] | | | [address] | | | [place] | | | | [place] | | | [place] | | | | [address] | + +--------+ +------+-------+ + + +--------+ +--------+ + + | Guarantor Name | Accoun | Relation to | Date | Phone | Billing Address | | | t Type | Patient | of | | | | | | | | | | + +--------+ +--------+ + + | ENIO SCHMITZ | Person | Self [birth year] | Home: | [address] | | | al/Thee | | 1971 | [phone] | [place] [address] | | | karri | | | [phone] | | + +--------+ +--------+ + +"
--- OUTSIDE RECORDS SUMMARY | ~2019-03-27 | XMS | Encounter Summary ---
Demographics + + + | Address | [address] | | | [place] [address] | + + + | Home Phone | | + + + | Preferred Language | Unknown | + + + | Marital Status | | + + + | Tenriism Affiliation | Unknown | + + + | Race | Unknown | + + + | Ethnic Group | Unknown | + + + Author + + + | Author | [facility] | | | and [place] | + + + | Organization | [facility] | | | and [place] | + + + | Address | Unknown | + + + | Phone | Unavailable | + + + Care Team Providers + +------+ + | Care Supervisor Bit And Shank Department Name | Role | Phone | + [...] + + | 02/12/ | Telephone | [facility] | Rober Iraheta MD [address] | Other | | 2011 | | NEUROLOGY [place] | [address] | | | | | [address] [facility], | [address] | | | | | RADHA SINHA [address] [facility] [address] | | | | | [place] [address] | [phone] | | | | | [phone] | | | +--------+ + + + [...]
--- OUTSIDE RECORDS SUMMARY | ~2019-03-27 | XMS | Encounter Summary ---
Demographics + + + | Address | [address] | | | [place] [address] | + + + | Home Phone | | + + + | Preferred Language | Unknown | + + + | Marital Status | | + + + | Taoist Affiliation | PRO | + + + | Race | or | + + + | Ethnic Group | Not or | + + + Author + + + | Author | [facility] | + + + | Organization | [facility] | + + + | Address | Unknown | + + + | Phone | Unavailable | + + + Support + + + + + | Name | Relationship | Address | Phone | + + + + + | Conrad | ECON | [address] | | | Baron | | [place] | | | | | [address] | | + + + + + Care Team Providers + +------+ + | Care Filler Spreader Name | Role | Phone | + [...] | Rheumatology | | | | | [address] | | | | | | Loop Mailcode: [address] | | | | | | Physician's | | | | | | [place], | | | | | | [place] [address] | | | | | | [phone] | | | +--------+ + + + [...]
--- OUTSIDE RECORDS SUMMARY | ~2019-03-27 | XMS | Clinical Summary ---
Demographics + + + | Address | [address] | | | [place] [address] | + + + | Home Phone [...] + + | Conrad | ECON | [address] | | | [place] | | [place] | | | | | [address] | | + + + + + Care Team Providers + +------+ + | Care Labor Specialist Name | Role | Phone | + +------+ + | Omari Shabazz | PCP | | + +------+ + Source Comments JEANLENIN is fully live on both EpicCare Ambulatory and EpicCare InPatient.[facility] Allergies + + + + + + [...] | | + +--------+ +--------+ +---------+--------+ | PA[facility] HEALTH | PANAMANIAN | xxxxxxxxx | Effect | | | [...] Person | Self | [birth year] | | [address] | | | joseph/Thee | | 1971 | [phone] | [place] [address] | | | karri | | | 3 (Home) | | + +--------+ +--------+ + +
--- OUTSIDE RECORDS SUMMARY | ~2019-03-27 | XMS | Clinical Summary ---
Demographics + + + | Address | [address] | | | [place] [address] | + + + | Home Phone | | + + + | Preferred Language | Unknown | + + + | Marital Status | | + + + | Orthodox Affiliation | Unknown | + + + | Race | Unknown | + + + | Ethnic Group | Unknown | + + + Author + + + | Author | [facility] | | | and [place] | + + + | Organization | [facility] | | | and [place] | + + + | Address | Unknown | + + + | Phone | Unavailable | + + + Care Team Providers + +------+ + | Care Principal Automation Engineer Name | Role | Phone | [...] (See Comments) | Medium | 07/07/19 | [place] like she | | | | | 19 | couldn't breathe | + + + + + + | Penicillins | Rash | Low | 07/07/19 | | | | | | 19 | | + + + + + + | Oxycodone | Other (See Comments) | Medium | 07/07/19 | [place] heart racing, | | | | | [...] | + +--------+ +--------+ +---------+--------+ | [place] | MEDICA | [id number] | | [phone] | | Medica | | | [place] | | 016-Pr | 2 | | id | | | PLUS | | esent | | | | + +--------+ +--------+ +---------+--------+ | [facility] | IHS | [id number] | | | | Indemn | | [...] Person | Self | [birth year] | | [address] | | | al/Thee | | 1971 | [phone] | [place] [address] | | | karri | | | 3 (Home) | | + +--------+ +--------+ + + Advance Directives + + + + + | Type | Date Recorded | Patient | Explanation | | | | Merchandising Manager | | + + + + + | Power of | | | | | Dielectric Tester | | | | + + + + + | Advance | 07/06/2016 8:54 | | | | Directive | PM | | | + + + + +
--- OUTSIDE RECORDS SUMMARY | ~2019-03-27 | XMS | Clinical Summary ---
Demographics + + + | Address | [address] | | | [place] [address] | + + + | Home Phone | | + + + | Preferred Language | Unknown | + + + | Marital Status | | + + + | Mandaeism Affiliation | Unknown | + + + | Race | Unknown | + + + | Ethnic Group | Unknown | + + + Author + + + | Author | [facility] (Historical as of | | | 11-28-18) | + + + | Organization | [facility] (Historical as of | | | 11-28-18) [...] Team Providers + +------+ + | Care Collections And Archives Director Name | Role | Phone | + [...] +------+-------+ + | MEDICAID | MEDICA | [id number] | | | [address] | | | [place] | | | | [place] | | | [place] | | | | [phone] | + +--------+ +------+-------+ + + +--------+ +--------+ + + | Guarantor Name | Accoun | Relation to | Date | Phone | Billing Address | | | t Type | Patient | of | | | | | | | | | | + +--------+ +--------+ + + | ENIO SCHMITZ | Person | Self [birth year] Home: | [address] | | | al/[birth year]e | | 1971 | [phone] [place] [address] | | | karri | | [phone] | | + +--------+ +--------+ + +"
--- OUTSIDE RECORDS SUMMARY | ~2019-03-27 | XMS | Encounter Summary ---
Demographics + + + | Address | [address] | | | [place] [address] | + + + | Home Phone | | + + + | Preferred Language | Unknown | + + + | Marital Status | | + + + | Anglican Affiliation | Unknown | + + + [...] Team Providers + +------+ + | Care Record Label Internship Name | Role | Phone | + +------+ + | Omari Shabazz PA-C | PCP | | + +------+ + Encounter Details +--------+ + + + + | Date | Type | Department | Care Team | Description | +--------+ + + + + | 02/21/ | [facility] | [facility] | Derek Urena | | | 2012 | Encounter | [facility] | Fernando Beatty MD | | | | | CENTER [address] | [address] | | | | | [place] | [place] | | | | | [phone] | [address] | | | | | [phone] | | | +--------+ + + + [...]
[~2019-03-27 09:56] MED LIST changes: +CRUTCH1 EACH
[2019-03-27] MEDS ORDERED: NORCO 5-325 TA1 EACH PO (13:04)
[2019-03-27] MEDS ORDERED: MACROBID 100 M100 MG PO (13:04)
== END 2019-03-27 13:42 | disposition home or self-care (01) ==
LOC: ED 09:56
DX: N39.0 Urinary tract infection, site not specified (principal); G43.909 Migraine, unspecified, not intractable, without status migrainosus; Z88.0 Allergy status to penicillin; Z88.1 Allergy status to other antibiotic agents; Z88.8 Allergy status to other drugs, medicaments and biological substances; Z88.5 Allergy status to narcotic agent; Z79.899 Other long term (current) drug therapy
CPT/HCPCS: 74176; 80053; 81001; 82550; 84703; 85025; 96374; 99284-25; J1885

== ENCOUNTER 2022-12-03 10:02 | Observation (INO) | payer OTHER ==
[~2022-12-03] VITALS: Ht 162.6 cm; Wt 81.3 kg
--- OUTSIDE RECORDS SUMMARY | ~2022-12-03 | XMS | Continuity of Care Document ---
Demographics + + + | Address | [address] | | | [place] [address] | + + + | Preferred Language | Unknown | + + + | Marital Status | | + + + | Lutheran Affiliation | Unknown | + + + | Race | or | + + + | Ethnic Group | Unknown | + + + Author + + + | Author | [facility] | + + + | Organization | [facility] | + + + | Address | [address] | | | [place] [address] | + + + | Phone | | + + + Care Team Providers + + + + | Care Hull Drafter Name | Role | Phone | + + + + Unavailable | Unavailable | + + + + Allergies and Intolerances + + + + + + | date | description | facility | reaction | severity | + + + + + + | (no date) | | [facility] | (no reaction) | (no severity) | | | prochlorperazin | | | | | | e edisylate | | | | + + + + + + | (no date) | oxycodone HCl | [facility] | (no reaction) | (no severity) | + + + + + + | (no date) | Penicillins | [facility] | (no reaction) | (no severity) | + + + + + + | (no date) | erythromycin | [facility] | (no reaction) | (no severity) | | | base | | | | + + + + + + | (no date) | promethazine | [facility] | (no reaction) | (no severity) | + + + + + + Encounters No information. Functional Status No information. Immunizations No information. Medications No information. 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 Results/Labs No information. Social History No information. Vital Signs No information."
[~2022-12-03 10:02] MED LIST changes: +MACROBID 100 M100 MG PO
[2022-12-03 11:07] LABS: BASOPHILS 0.4 % (0-2); EOSINOPHILS 0.9 % (0-6); HEMATOCRIT 39.3 % (35.0-50.0); HEMOGLOBIN 13.2 g/dL (12.0-18.0); LYMPHOCYTES 16.9 % (24-44); MCH 30.8 (27-36); MCHC 33.6 g/dl (30-36); MCV 91.7 fl (81-99); MONOCYTES 5.3 % (0-12); NEUTROPHILS 76.5 % (39-80); PLATELET COUNT 346 K/uL (140-440); RBC 4.29 M/ul (4.3-5.7); RDW 14.1 (10.5-15.0)
[2022-12-03 11:19] LABS: ALBUMIN 3.7 g/dL (3.4-5.0); ALBUMIN/GLOBULIN RATIO 0.88 (1.1-2.4); ANION GAP 12.8 (7-21); BILIRUBIN, TOTAL 0.3 ng/dL (0.2-1.0); BUN/CREATININE RATIO 22.72 (6.0-28.6); CALCIUM 9.7 mg/dL (8.5-10.1); CREATININE, SERUM 0.88 mg/dL (0.55-1.02); POTASSIUM 3.8 mmol/L (3.5-5.1); PROTEIN, TOTAL 7.9 g/dL (6.4-8.2)
[2022-12-03 11:45] LABS: BILIRUBIN, URINE NEGATIVE (negative); BLOOD/HGB, URINE LARGE (Negative); KETONE, URINE NEGATIVE (Negative); LEUK ESTERASE, URINE NEGATIVE (negative); NITRITE, URINE NEGATIVE (negative); PH, URINE 6.5 (5-7)
[2022-12-03 11:55] LABS: BACTERIA, URINE NONE SEEN /hpf (negative); CASTS, URINE NONE SEEN \\lpf; COLLECTION TYPE, URINE CLEAN CATCH; CRYSTALS, URINE NONE SEEN (0-1+); EPITHELIAL CELLS, URINE OCCASIONAL /lpf (0-1+); RED BLOOD CELLS, URINE 21-40 /hpf (0-5); REFLEX CULTURE, URINE No (No); WHITE BLOOD CELLS, URINE 0-1 /HPF (0-5)
[2022-12-03 14:36] VITALS: BP 170/66
--- NOTE | 2022-12-03 14:45 | NUR ---
[facility]. Pt reporting 3/10 pain level, grimacing and holding stomach. PRN dilaudid administered. IV flagyl infusing WNL. Hx and assessment complete, VSS. Pt A+O, on RA. RR elevated d/t pain. Pt at bedside. POC reviewed with patient who verbalizes understanding, all questions answered.
[2022-12-03] MEDS ORDERED: PRILOSEC OTC20 MG PO (14:57)
--- NOTE | 2022-12-03 15:25 | NUR ---
In room to complete assessment. Patient sleeping in recliner. Allowed to rest at this time.
--- NOTE | 2022-12-03 16:00 | NUR ---
Rounded on patient, IV pump alarming ABX complete. On standby. Pt states no needs at this time.
--- NOTE | 2022-12-03 17:40 | NUR ---
Dr Nascimento in to see patient. Pt c/o 09/21 pain, 1mg dilaudid administered, IVF infusing per order. Pt updated on plan of care, agreeable at this time. Tampon provided as to keep menstrual blood/urine separate for strict I/Os.
[2022-12-03 17:47] VITALS: BP 124/54
--- NOTE | 2022-12-03 18:28 | NUR ---
Report called to Orly at [facility]
--- NOTE | 2022-12-03 18:55 | NUR ---
Patient updated on plan for life flight transport to [facility]. Pt becomes inconsolably anxious and adamantly refuses air transport. 2mg IV ativan administered. Pt continues to refuse air transport. Technical Illustrator aware of situation and attempting to find alternative transport.
--- NOTE | 2022-12-03 19:05 | NUR ---
Dr Nascimento notified of change in patient plan. Verbal orders received to continue all inpatient medication orders during transport as written inpatient.
--- NOTE | 2022-12-03 19:29 | NUR ---
PT RESTING COMFORTABLY IN BED. BREATHING EVEN AND UNLABORED. AT BEDSIDE. IV FLUIDS RUNNING. NO NEEDS EXPRESSED AT THIS TIME.
--- NOTE | 2022-12-03 20:09 | NUR ---
pt OFF FLOOR WITH [facility]ANNA FIRE AT THIS TIME.
--- NOTE | 2022-12-04 06:06 | CONS ---
[facility] [address] [place], [place] [address] Signed DATE OF CONSULTATION: 12/03/2022 CHIEF COMPLAINT: Right upper quadrant abdominal pain. HISTORY OF PRESENT ILLNESS: Enio is a 52-year-old female, who is having right flank and back pain that is coming from the right upper quadrant. It awoke her about 4:00 a.m. It is quite severe, so she came to emergency room for evaluation. She is tender in the right upper quadrant and in her back. White count was normal. Her urine showed blood, but she is menstruating. Liver function tests were fine. Uro CT scan was done and the gallbladder wall is thickened with some edema and some stones. Therefore, an ultrasound was performed and she has at least three mobile stones measuring up to 1.6 cm. She has a positive Rivera sign. There is no pericholecystic fluid. The gallbladder wall is a little thick at 6 mm. The common bile duct is normal at 2.3 mm. I have been asked to admit her as a general surgeon on-call. She had received Rocephin, Flagyl and Dilaudid. There was some question about rhabdomyolysis that was exercise induced. 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 PAST SURGICAL HISTORY: Includes ureteral surgery at age [age] on the left. Muscle biopsy in [place], [place], a number of years ago and some eye cysts removed in 2008. SOCIAL HISTORY: She does not smoke or drink. She goes to the [facility]. She prefers [facility], Josef Baron is her at [phone]. FAMILY HISTORY: None. REVIEW OF SYSTEMS: She had 10 systems reviewed and she talked to me at great length about the CPT2 psoriasis associated with rhabdomyolysis and malignant hyperthermia. She said even exercise can induce rhabdomyolysis. Although she has been exercising, and worked our way up past that. However, she said even trauma from the surgery and/or just being ill from the gallbladder can trigger her rhabdomyolysis. Unfortunately, she did not go into this detail with our ER physician. ALLERGIES: Electronically Signed By: DOMENICO DELVALLE MD 12/04/22 0606 PATIENT NAME: ENIO SCHMITZ AUGUST CONSULTATION DATE OF : 74 REPORT #: [id number] PHYSICIAN: DOMENICO DELVALLE MD PCP: BISHOP AMARAL REPORT IS CONFIDENTIAL AND NOT TO BE RELEASED WITHOUT AUTHORIZATION [facility] [address] [place], [place] [address] Signed Compazine, oxycodone, penicillin, erythromycin base, and promethazine. MEDICATIONS: Tylenol, ibuprofen, and a recent course of prednisone 40 mg p.o. daily for sinusitis. PHYSICAL EXAMINATION: VITAL SIGNS: Blood pressure 170/66 from her pain, heart rate is 67, respiratory rate 28, temperature is 98.0. She is 98% on room air. She is 5 feet 4 inches, 81 kg. Body mass index is 30. GENERAL: Enio is a 52-year-old female, lying supine semi-recumbent in her hospital bed. She is in a little pain since the Dilaudid is wearing off. Her Josef is with us. She does not appear systemically ill or toxic. LUNGS: Clear to auscultation bilaterally. HEART: Regular rate and rhythm without murmurs. ABDOMEN: Soft and flat, but she is tender in the right upper quadrant. LABORATORY DATA: Her white blood cell count 8.8, hemoglobin 13, neutrophils 76. Electrolytes unremarkable. Her UA showed some blood, but she is menstruating. Her liver function tests are unremarkable. Albumin is 3.7. CK level is pending. RADIOGRAPHIC STUDIES: The uro CT shows the gallbladder wall thickened with some edema and some stones along with small right inguinal hernia and a small umbilical hernia. Ultrasound shows three mobile stones measuring up to 1.6 cm with a positive Rivera sign. There is no pericholecystic fluid. The gallbladder wall is thickened at 6 mm. Common bile duct 2.3 mm. ASSESSMENT AND PLAN: Enio is a 52-year-old female who presents with acute cholecystitis cholelithiasis in the setting of CPT2 psoriasis associated with significant rhabdomyolysis and malignant hyperthermia. I had a long discussion with Enio and her . I gave him our [employer] brochure on the gallbladder and went to a page by page. However, she is at extremely high risk at any hospital including our [facility] critical access hospital. She would be much better served at a tertiary referral center. We are making calls now to see what we can do for her. She has expressed understanding, and agrees with above plan. Domenico Delvalle MD Electronically Signed By: DOMENICO DELVALLE MD 12/04/22 0606 PATIENT NAME: ENIO SCHMITZ CONSULTATION DATE OF : 74 REPORT #: [id number] PHYSICIAN: DOMENICO DELVALLE MD PCP: BISHOP AMARAL REPORT IS CONFIDENTIAL AND NOT TO BE RELEASED WITHOUT AUTHORIZATION [facility] [address] [place] [address] Signed ALB/MODL /[id number] cc: Domenico Delvalle MD [facility] Copies: DOMENICO DELVALLE MD [facility] ~ Electronically Signed By: DOMENICO DELVALLE MD 12/04/22 0606 PATIENT NAME: ENIO SCHMITZ CONSULTATION DATE OF : 74 REPORT #: [id number] PHYSICIAN: DOMENICO DELVALLE MD PCP: BISHOP AMARAL REPORT IS CONFIDENTIAL AND NOT TO BE RELEASED WITHOUT AUTHORIZATION
== END 2022-12-03 20:09 | disposition short-term general hospital (02) ==
LOC: ED 10:02 → MS 10:04
PROVIDERS: Emergency Medicine; ADMIT Colon & Rectal Surgery; ATTEND Colon & Rectal Surgery
DX: K80.00 Calculus of gallbladder with acute cholecystitis without obstruction (principal); Z88.0 Allergy status to penicillin; Z88.5 Allergy status to narcotic agent; Z88.1 Allergy status to other antibiotic agents; T79.6XXA Traumatic ischemia of muscle, initial encounter; L40.9 Psoriasis, unspecified; R50.9 Fever, unspecified
CPT/HCPCS: 36415; 74176; 76705; 80053; 81001; 82553; 83690; 85025; 96365; 96367; 96368; 96375; 96376; 99285-25; C9113; G0378; J0696; J1170; J1885; J2060; J2405; J7030

== ENCOUNTER 2023-06-03 04:33 | Emergency (ER) | payer OTHER ==
[~2023-06-03] VITALS: Ht 162.6 cm; Wt 81.2 kg
[~2023-06-03 04:33] MED LIST changes: +PRILOSEC OTC20 MG PO
[2023-06-03] MEDS ORDERED: PEPCID20 MG (04:51)
[2023-06-03] MEDS ORDERED: FAMOTIDINE 20 MG/ 2 ML VIAL IV ONE (05:00)
[2023-06-03] MEDS ORDERED: ondansetron HCL 4 MG/2 ML VIAL IV ONE ×2 (05:00→10:30)
[2023-06-03] MEDS ORDERED: KETOROLAC TROMETHAMINE 30 MG/ML VIAL IV ONE ×2 (05:15→23:45)
[2023-06-03] MEDS ORDERED: CEFAZOLIN SODIUM 2 GM/20 ML SYR IV ONE (05:15)
[2023-06-03 05:18] LABS: BASOPHILS 0.7 % (0-2); EOSINOPHILS 3.1 % (0-6); HEMATOCRIT 46.8 % (35.0-50.0); HEMOGLOBIN 15.6 g/dL (12.0-18.0); LYMPHOCYTES 20.1 % (24-44); MCHC 33.3 g/dl (30-36); MCV 93.1 fl (81-99); MONOCYTES 6.3 % (0-12); NEUTROPHILS 69.8 % (39-80); PLATELET COUNT 327 K/uL (140-440); RBC 5.02 M/ul (4.3-5.7); RDW 14.5 (10.5-15.0)
[2023-06-03 05:34] LABS: ALBUMIN 3.7 g/dL (3.4-5.0); ALBUMIN/GLOBULIN RATIO 0.84 (1.1-2.4); ANION GAP 16.8 (7-21); BILIRUBIN, TOTAL 0.5 ng/dL (0.2-1.0); BUN/CREATININE RATIO 18.47 (6.0-28.6); CALCIUM 9.5 mg/dL (8.5-10.1); CREATININE, SERUM 0.92 mg/dL (0.55-1.02); POTASSIUM 3.8 mmol/L (3.5-5.1); PROTEIN, TOTAL 8.1 g/dL (6.4-8.2)
[2023-06-03] MEDS ORDERED: LACTATED RINGER'S 1,000 ML IV ONE (05:45)
[2023-06-03 06:01] LABS: INFLUENZA B NAA NEGATIVE (NEGATIVE); RESPIRATORY SYNCYTIAL VIR NAA NEGATIVE (NEGATIVE)
[2023-06-03] MEDS ORDERED: HYDROmorphone HCL 1 MG/ML SYR IV PRN ×2 (06:15→23:45)
[2023-06-03] MEDS ORDERED: LACTATED RINGER'S 1,000 ML IV SCH (09:45)
[2023-06-03] MEDS ORDERED: CEFTRIAXONE/SODIUM CHLORIDE 2 GM/100 ML PIGGYBACK IV ONE (10:00)
[2023-06-03] MEDS ORDERED: droPERidol 5 MG/2 ML VIAL IV ONE (11:15)
[2023-06-03] MEDS ORDERED: diphenhydrAMINE HCL 50 MG/ML VIAL IV ONE (12:00)
[2023-06-03 14:01] LABS: BILIRUBIN, URINE NEGATIVE (negative); BLOOD/HGB, URINE TRACE-I (Negative); KETONE, URINE NEGATIVE (Negative); LEUK ESTERASE, URINE NEGATIVE (negative); NITRITE, URINE NEGATIVE (negative)
[2023-06-03 14:17] LABS: BACTERIA, URINE NONE SEEN /hpf (negative); CASTS, URINE NONE SEEN \\lpf; COLLECTION TYPE, URINE CLEAN CATCH; CRYSTALS, URINE NONE SEEN (0-1+); EPITHELIAL CELLS, URINE SQUAMOUS 1+ /lpf (0-1+); RED BLOOD CELLS, URINE 0-1 /hpf (0-5); REFLEX CULTURE, URINE No (No)
[2023-06-03] MEDS ORDERED: FAMOTIDINE 20 MG/ 2 ML VIAL IV SCH (22:00)
[2023-06-04 06:21] LABS: BASOPHILS 0.4 % (0-2); EOSINOPHILS 2.4 % (0-6); HEMATOCRIT 41.5 % (35.0-50.0); LYMPHOCYTES 22.5 % (24-44); MCH 31.3 (27-36); MCHC 33.8 g/dl (30-36); MCV 92.7 fl (81-99); MONOCYTES 6.5 % (0-12); NEUTROPHILS 68.2 % (39-80); PLATELET COUNT 308 K/uL (140-440); RBC 4.47 M/ul (4.3-5.7); RDW 14.1 (10.5-15.0)
[2023-06-04 06:47] LABS: ALBUMIN/GLOBULIN RATIO 0.81 (1.1-2.4); ANION GAP 14.5 (7-21); BILIRUBIN, TOTAL 0.7 ng/dL (0.2-1.0); BUN/CREATININE RATIO 16.48 (6.0-28.6); CREATININE, SERUM 0.91 mg/dL (0.55-1.02); POTASSIUM 3.5 mmol/L (3.5-5.1); PROTEIN, TOTAL 6.7 g/dL (6.4-8.2)
[2023-06-04] MEDS ORDERED: HYDROCODONE/ACETA 7.5/325 TAB PO ONE (09:00)
[2023-06-04] MEDS ORDERED: CEFTRIAXONE/SODIUM CHLORIDE 2 GM/100 ML PIGGYBACK IV SCH (09:00)
[2023-06-04] MEDS ORDERED: ondansetron HCL 4 MG/2 ML VIAL IV PRN (09:30)
[2023-06-04] MEDS ORDERED: HYDROCODONE/ACETA 5/325 TAB PO ONE (15:45)
[2023-06-04] MEDS ORDERED: ACETAMINOPHEN 500 MG TAB PO ONE (15:45)
[2023-06-04] MEDS ORDERED: ondansetron HCL 4 MG/2 ML VIAL IV ONE (15:45)
[2023-06-04 16:21] VITALS: BP 126/63
== END 2023-06-04 16:28 | disposition short-term general hospital (02) ==
LOC: ED 04:33
PROVIDERS: Internal Medicine
DX: K80.10 Calculus of gallbladder with chronic cholecystitis without obstruction (principal); E71.40 Disorder of carnitine metabolism, unspecified; G25.71 Drug induced akathisia; T43.595A Adverse effect of other antipsychotics and neuroleptics, initial encounter; L40.50 Arthropathic psoriasis, unspecified; Q23.1 Congenital insufficiency of aortic valve; Z88.0 Allergy status to penicillin; Z88.1 Allergy status to other antibiotic agents; Z88.8 Allergy status to other drugs, medicaments and biological substances; Z88.5 Allergy status to narcotic agent; Z79.899 Other long term (current) drug therapy
CPT/HCPCS: 36415; 74176; 76705; 80053; 81001; 82553; 83690; 85025; 87502; A9270; J0690; J0696; J1170; J1200; J1790; J1885; J2405; J7121; U0002

== ENCOUNTER 2024-05-23 16:01 | Emergency (ER) | payer OTHER ==
[~2024-05-23] VITALS: Ht 160 cm; Wt 76.7 kg
[2024-05-23] MEDS ORDERED: SODIUM CHLORIDE 0.9% 1,000 ML IV ONE (16:30)
[2024-05-23] MEDS ORDERED: KETOROLAC TROMETHAMINE 15 MG/ML VIAL IV ONE (16:30)
[2024-05-23] MEDS ORDERED: ondansetron HCL 4 MG/2 ML VIAL IV ONE (16:30)
[2024-05-23 17:01] LABS: BILIRUBIN, URINE NEGATIVE (negative); BLOOD/HGB, URINE SMALL (Negative); KETONE, URINE NEGATIVE (Negative); LEUK ESTERASE, URINE TRACE (negative); NITRITE, URINE NEGATIVE (negative)
[2024-05-23 17:06] LABS: BASOPHILS 0.7 % (0-2); EOSINOPHILS 2.5 % (0-6); HEMATOCRIT 43.3 % (35.0-50.0); HEMOGLOBIN 14.7 g/dL (12.0-18.0); LYMPHOCYTES 21.3 % (24-44); MCH 32.5 (27-36); MCHC 33.9 g/dl (30-36); MONOCYTES 8.3 % (0-12); NEUTROPHILS 67.2 % (39-80); PLATELET COUNT 303 K/uL (140-440); RBC 4.51 M/ul (4.3-5.7); RDW 13.4 (10.5-15.0)
[2024-05-23 17:08] LABS: BACTERIA, URINE NONE SEEN /hpf (negative); CRYSTALS, URINE NONE SEEN (0-1+)
[2024-05-23 17:09] LABS: CASTS, URINE NONE SEEN \\lpf; COLLECTION TYPE, URINE CLEAN CATCH; REFLEX CULTURE, URINE No (No)
[2024-05-23 17:17] LABS: ALBUMIN 3.6 g/dL (3.4-5.0); ALBUMIN/GLOBULIN RATIO 0.97 (1.1-2.4); ANION GAP 13.8 (7-21); BILIRUBIN, TOTAL 0.5 ng/dL (0.2-1.0); BUN/CREATININE RATIO 20.73 (6.0-28.6); CALCIUM 9.1 mg/dL (8.5-10.1); CREATININE, SERUM 0.82 mg/dL (0.55-1.02); POTASSIUM 3.8 mmol/L (3.5-5.1); PROTEIN, TOTAL 7.3 g/dL (6.4-8.2)
[2024-05-23] MEDS ORDERED: HYDROCODONE BIT/ACETAMINOPHEN 5/325 MG 1 TAB HOME.PACK PO ONE (20:15)
[2024-05-23 20:26] VITALS: BP 120/67
== END 2024-05-23 20:26 | disposition home or self-care (01) ==
LOC: ED 16:01
PROVIDERS: Emergency Medicine
DX: R10.30 Lower abdominal pain, unspecified (principal); N20.0 Calculus of kidney; Z98.890 Other specified postprocedural states; Z88.0 Allergy status to penicillin; Z88.1 Allergy status to other antibiotic agents; Z88.8 Allergy status to other drugs, medicaments and biological substances; Z88.5 Allergy status to narcotic agent; Z79.899 Other long term (current) drug therapy
CPT/HCPCS: 36415; 74177; 80053; 81001; 83690; 84703; 85025; 96375; 99284-25; A9270; J1885; J2405; J7030; Q9967

== ENCOUNTER 2024-08-16 23:16 | Emergency (ER) | payer OTHER ==
[~2024-08-16] VITALS: Ht 160 cm; Wt 76.7 kg
[~2024-08-16 23:16] MED LIST changes: +PEPCID20 MG
[2024-08-16] MEDS ORDERED: MORPHINE SULFATE 4 MG/ML VIAL IV ONE (23:30)
[2024-08-16] MEDS ORDERED: SODIUM CHLORIDE 0.9% 1,000 ML IV ONE (23:30)
[2024-08-16] MEDS ORDERED: KETOROLAC TROMETHAMINE 30 MG/ML VIAL IV ONE (23:30)
[2024-08-16] MEDS ORDERED: ondansetron HCL 4 MG/2 ML VIAL IV ONE (23:30)
[2024-08-16 23:43] LABS: BILIRUBIN, URINE NEGATIVE (negative); BLOOD/HGB, URINE LARGE (Negative); KETONE, URINE TRACE (Negative); LEUK ESTERASE, URINE MODERATE (negative); NITRITE, URINE POSITIVE (negative); PH, URINE 5.5 (5-7)
[2024-08-16 23:48] LABS: CRYSTALS, URINE NONE SEEN (0-1+); EPITHELIAL CELLS, URINE SQUAMOUS 1+ /lpf (0-1+); RED BLOOD CELLS, URINE >50 /hpf (0-5)
[2024-08-16 23:49] LABS: BACTERIA, URINE 2+ /hpf (negative); CASTS, URINE NONE SEEN \\lpf; COLLECTION TYPE, URINE CLEAN CATCH; REFLEX CULTURE, URINE Yes (No); WHITE BLOOD CELLS, URINE 21-40 /HPF (0-5)
[2024-08-16 23:55] LABS: ALBUMIN 3.7 g/dL (3.4-5.0); ALBUMIN/GLOBULIN RATIO 1.03 (1.1-2.4); ANION GAP 12.9 (7-21); BILIRUBIN, TOTAL 0.6 mg/dL (0.2-1.0); BUN/CREATININE RATIO 16.66 (6.0-28.6); CALCIUM 8.7 mg/dL (8.5-10.1); CREATININE, SERUM 1.02 mg/dL (0.55-1.02); POTASSIUM 3.9 mmol/L (3.5-5.1); PROTEIN, TOTAL 7.3 g/dL (6.4-8.2)
[2024-08-17 00:03] LABS: BASOPHILS 0.7 % (0-2); EOSINOPHILS 2.1 % (0-6); HEMATOCRIT 40.5 % (35.0-50.0); HEMOGLOBIN 14.1 g/dL (12.0-18.0); LYMPHOCYTES 21.2 % (24-44); MCH 32.3 (27-36); MCHC 34.8 g/dl (30-36); MCV 92.8 fl (81-99); MONOCYTES 7.8 % (0-12); NEUTROPHILS 68.2 % (39-80); PLATELET COUNT 286 K/uL (140-440); RBC 4.37 M/ul (4.3-5.7); RDW 13.4 (10.5-15.0)
[2024-08-17] MEDS ORDERED: CEFTRIAXONE SODIUM 2 GM in SODIUM CHLORIDE 0.9% 100 ML IV ONE (00:15)
[2024-08-17] MEDS ORDERED: ONDANSETRON 4 MG HOME.PACK SL ONE (00:30)
[2024-08-17] MEDS ORDERED: CEFDINIR 300 MG HOME.PACK PO ONE (00:30)
[2024-08-17] MEDS ORDERED: ONDANSETRON ODT8 MG PO (00:33)
[2024-08-17] MEDS ORDERED: HYDROCODON-ACE1 EA10 PO (00:33)
[2024-08-17] MEDS ORDERED: CEFDINIR300 MG PO (00:33)
[2024-08-17] MEDS ORDERED: HYDROCODONE BIT/ACETAMINOPHEN 5/325 MG 1 TAB HOME.PACK PO ONE (00:45)
[2024-08-17 01:23] VITALS: BP 109/58
== END 2024-08-17 01:22 | disposition home or self-care (01) ==
LOC: ED 23:16
PROVIDERS: Family Medicine
DX: N12 Tubulo-interstitial nephritis, not specified as acute or chronic (principal); Z88.0 Allergy status to penicillin; Z88.1 Allergy status to other antibiotic agents; Z88.8 Allergy status to other drugs, medicaments and biological substances; Z88.5 Allergy status to narcotic agent
CPT/HCPCS: 36415; 74176; 80053; 81001; 85025; 87088; 87186; 96374; 96375; 99284-25; A9270; J0696; J1885; J2270; J2405; J7030

== ENCOUNTER 2024-10-29 09:17 | Emergency (ER) | payer OTHER ==
[~2024-10-29] VITALS: Ht 160 cm; Wt 78.1 kg
[~2024-10-29 09:17] MED LIST changes: +CEFDINIR300 MG PO
[2024-10-29] MEDS ORDERED: PREDNISONE20 MG PO (09:35)
[2024-10-29 10:08] LABS: BLOOD/HGB, URINE SMALL (Negative); KETONE, URINE NEGATIVE (Negative); LEUK ESTERASE, URINE NEGATIVE (negative); NITRITE, URINE NEGATIVE (negative)
[2024-10-29 10:13] LABS: BASOPHILS 0.6 % (0.1-1.2); EOSINOPHILS 0.8 % (0.7-5.8); LYMPHOCYTES 24.9 % (19.3-51.7); MCH 31.8 PG (25.6-32.2); MCHC 33.8 g/dL (32.2-35.5); MCV 94.1 fL (79.4-94.8); MONOCYTES 7.2 % (4.7-12.5); NEUTROPHILS 66.1 % (34.0-71.1); RBC 4.40 M/uL (3.93-5.22)
[2024-10-29 10:13] LABS: EPITHELIAL CELLS, URINE SQUAMOUS 1+ /lpf (0-1+)
[2024-10-29 10:14] LABS: BACTERIA, URINE NONE SEEN /hpf (negative); CASTS, URINE NONE SEEN \\lpf; CRYSTALS, URINE NONE SEEN (0-1+); REFLEX CULTURE, URINE No (No)
[2024-10-29] MEDS ORDERED: MORPHINE SULFATE 4 MG/ML VIAL IV ONE ×2 (10:15→12:30)
[2024-10-29] MEDS ORDERED: LACTATED RINGER'S 1,000 ML IV SCH (10:15)
[2024-10-29 10:28] LABS: INR 1.12 (0.80-1.30); PROTIME 13.6 Sec (11.2-14.2)
[2024-10-29 10:31] LABS: ALT (SGPT) 59.0 U/L (14-59); AST (SGOT) 31.0 U/L (15-37); GLOMERULAR FILTRATION RATE,EST 68.0 mL/min (>60); PROTEIN, TOTAL 7.5 g/dL (6.4-8.2); UREA NITROGEN 20.0 mg/dL (7-18)
[2024-10-29] MEDS ORDERED: PERCOCET 5-3251 EACH PO (13:46)
[2024-10-29 14:02] VITALS: BP 134/73
== END 2024-10-29 14:02 | disposition home or self-care (01) ==
LOC: ED 09:17
PROVIDERS: Emergency Medicine
DX: K40.90 Unilateral inguinal hernia, without obstruction or gangrene, not specified as recurrent (principal); R79.89 Other specified abnormal findings of blood chemistry; Z79.52 Long term (current) use of systemic steroids; Z79.899 Other long term (current) drug therapy; Z88.0 Allergy status to penicillin; Z88.1 Allergy status to other antibiotic agents; Z88.8 Allergy status to other drugs, medicaments and biological substances
CPT/HCPCS: 36415; 74177; 80053; 81001; 82550; 83690; 83735; 84703; 85025; 85610; 96375; 96376; 99284-25; J2270; J2405; J7121; Q9967

== ENCOUNTER 2025-01-02 15:01 | Emergency (ER) | payer OTHER ==
[~2025-01-02] VITALS: Ht 160 cm; Wt 79.9 kg
[2025-01-02 15:58] LABS: BLOOD/HGB, URINE TRACE-I (Negative); KETONE, URINE NEGATIVE (Negative); LEUK ESTERASE, URINE NEGATIVE (negative); NITRITE, URINE POSITIVE (negative)
[2025-01-02 15:59] LABS: BASOPHILS 0.8 % (0.1-1.2); EOSINOPHILS 3.1 % (0.7-5.8); LYMPHOCYTES 21.3 % (19.3-51.7); MCH 31.6 PG (25.6-32.2); MCHC 33.8 g/dL (32.2-35.5); MCV 93.3 fL (79.4-94.8); MONOCYTES 7.6 % (4.7-12.5); NEUTROPHILS 66.9 % (34.0-71.1); RBC 4.34 M/uL (3.93-5.22)
[2025-01-02] MEDS ORDERED: KETOROLAC TROMETHAMINE 15 MG/ML VIAL IV ONE (16:00)
[2025-01-02 16:04] LABS: EPITHELIAL CELLS, URINE SQUAMOUS 1+ /lpf (0-1+)
[2025-01-02 16:05] LABS: BACTERIA, URINE NONE SEEN /hpf (negative); CASTS, URINE NONE SEEN \\lpf; CRYSTALS, URINE NONE SEEN (0-1+); REFLEX CULTURE, URINE No (No)
[2025-01-02 16:09] LABS: ALT (SGPT) 34.0 U/L (14-59); AST (SGOT) 25.0 U/L (15-37); GLOMERULAR FILTRATION RATE,EST 61.0 mL/min (>60); PROTEIN, TOTAL 7.1 g/dL (6.4-8.2); UREA NITROGEN 14.0 mg/dL (7-18)
[2025-01-02] MEDS ORDERED: SODIUM CHLORIDE 0.9% 500 ML IV PRN (17:15)
[2025-01-02] MEDS ORDERED: HYDROmorphone HCL 1 MG/ML SYR IV PRN (19:00)
[2025-01-02] MEDS ORDERED: PHENAZOPYRIDINE HCL 100 MG TAB PO ONE (19:00)
[2025-01-02 19:36] VITALS: BP 137/77
== END 2025-01-02 19:37 | disposition home or self-care (01) ==
LOC: ED 15:01
PROVIDERS: Emergency Medicine
DX: R10.9 Unspecified abdominal pain (principal); Z88.1 Allergy status to other antibiotic agents; Z88.0 Allergy status to penicillin; Z88.8 Allergy status to other drugs, medicaments and biological substances
CPT/HCPCS: 36415; 74177; 80053; 81001; 82550; 84703; 85025; 85379; 87088; 96374; 96375; 99284-25; J1171; J1885; J2405; J7040; Q9967